=== PATIENT | female | born 1945 | race Caucasian/White ===

== ENCOUNTER → 2017-03-26 | Outpatient (CLI) | payer BC, MEDICARE ==
[2016-09-06 10:00] VITALS: BP 127/61
[~2017-03-26] MED LIST: AMLO10TA2 PO; ASPI-252 PO; ATEN1TAB4; CLOP75TA27 PO; LABE200T2 PO; LANS30CA PO; MELO-150 PO; NAPR500T3; NITR0.4T SL; REGADENOSON 0.4 MG/5 ML DISP.SYRIN. IV ONE; SIMV40TA3 PO; TRAM50TA PO
--- NOTE | 2017-03-26 12:57 | RAD ---
APPROVED REPORT Test Type: Pharmacological Stress Nurse/Tech: Lolita Motley R.N. Test Indications: CAD Cardiac History: CAD, HTN Medications: SEE EMR Medical History: Smoker Resting ECG: SR with ST abnormalities in III, AVF Resting Heart Rate: 70 bpm Resting Blood Pressure: 180/82mmHg Pretest Chest Pain: None Nurse/Tech Notes S1S2, lungs CTA, diminished in RUL and in all bases, denied chest pain, SOA and dizziness. Consent: The procedure was explained to the patient in lay terms. Informed consent was witnessed. Aditya eout was entered into [employer]. History and Stress Test performed by Lolita Motley R.N. Pharm. Details Pharmacologic stress testing was performed using 0.4mg per 5ml of regadenoson given intravenously ove r 7-10 seconds. Stress Symptoms Slightly SOA, nausea. POST EXERCISE Reason for Termination: Infusion complete Max HR: 97 bpm Max Blood Pressure: 175/76mmHg Blood Pressure response to exercise: Normal blood pressure response during stress. Heart Rate response to exercise: Normal Chest Pain: No. Arrhythmia: No. ST Change: Yes. Baseline changes in leads III, AVF INTERPRETATION Stress EKG Conclusion: Baseline EKG showed sinus rhythm with inferolateral ST/T changes. Non diagnos tic changes at peak stress. No arrhythmias. Imaging Protocol IMAGE PROTOCOL: Rest Tc-99m/stress Tc-99m 1 day Rest: Stress: Viability: Radiopharm.Tc99m [id number] Sestamibi Aroh46rEe 34.7mCi Duration 15min. 10min. Img Date 03/26/2017 03/26/2017 Inj-Img [id number]. 60min. Rest Admin Site:IV - Left AntecubitalAdministrator:ISABEL Rouse Stress Admin Site: IV - Left AntecubitalAdministrator: ISABEL Rouse STRESS DATA End Diast. Vol.84.0mlAv. Heart Rate68.0bpm End Syst. Vol.22.0mlCO Index BSA0.0L/min Myocardial Dyjl935.0gEject. Jtnsemib99.0% Stress Rates Pk. Fill Rate3.03EDV/secLVtime Pk. Fill 152.07msec Pk. Empty Rate3.66ESV/secLVtime Pk. Aodpc155.46msec 1/3 Pk. Fill1.67EDV/sec Stress Scores Regional WT0.00Summed WT13.00 Regional WM0.00Summed WM0.00 Study quality was good. Left Ventricular size was Normal at Rest and Stress. Lung uptake was Normal. Left Ventricular ejection fraction is 74%. The rest and stress images show normal perfusion, normal contraction and thickening. LV Perf. Quant 17 Seg. SSS0.00 17 Seg. SRS0.00 17 Seg. SDS0.00 Stress Defect Extent (% LAD)0.00Rest Defect Extent (% LAD)0.00Rev. Defect Extent (% LAD)0.00 Stress Defect Extent (% LCX) 0.00Rest Defect Extent (% LCX)0.00Rev. Defect Extent (% LCX)0.00 Stress Defect Extent (% RCA)0.00Rest Defect Extent (% RCA)0.00Rev. Defect Extent (% RCA)0.00 Stress Defect Extent (% RACHEL)0.00Rest Defect Extent (% RACHEL)0.00Rev. Defect Extent (% RACHEL)0.00 Conclusion 1. Regadenoson cardioisotope stress test did not show any evidence of ischemia or infarct. 2. Normal left ventricular systolic function with ejection fraction calculated at 74%. 3. Low risk for cardiac events.
== END | disposition home or self-care (01) ==
LOC: NM 08:12
PROVIDERS: ATTEND Internal Medicine Cardiovascular Disease
DX: I25.10 Atherosclerotic heart disease of native coronary artery without angina pectoris (principal); F17.200 Nicotine dependence, unspecified, uncomplicated
CPT/HCPCS: 78452; 93017; 96374; 96375; 96376; A9500; J2785

== ENCOUNTER → 2017-10-10 | Outpatient (CLI) | payer BC, MEDICARE ==
[2016-09-06 10:00] VITALS: BP 127/61
[~2017-10-10] MED LIST changes: -CLOP75TA27 PO; +CLOP75TA57 PO; -MELO-150 PO; +MELO15TA23 PO; -NAPR500T3; +NAPR500T4; -REGADENOSON 0.4 MG/5 ML DISP.SYRIN. IV ONE
--- NOTE | 2017-10-10 16:16 | RAD ---
APPROVED REPORT Patient Location: OUT-PATIENT Indications PAD VELOCITY AND DOPPLER WAVEFORM ANALYSIS RIGHT cm/secWaveformSeverity LEFT c m/secWaveformSeverity pCFA 249.0BiphasicpCFA 222.0Biphasic Prof Fem Art. 98.0BiphasicProf Fem Art. 184.0Biphasic Fem Art Prox. 227.0BiphasicFem Art Prox. 185.0Biphasic Fem Art Mid. 181.0BiphasicFem Art Mid. 146.0Biphasic Fem Art Dist. 184.0BiphasicFem Art Dist. 247.0Biphasic Pop Art(AK) 128.0BiphasicPop Art(AK) 97.0Biphasic DESK OFFICER Prox. 102.0BiphasicPTA Prox. 89.0Biphasic DESK OFFICER Dist. 87.0BiphasicPTA Dist. 75.0Biphasic Per Art Mid. 41.0BiphasicPer Art Mid. 86.0Biphasic JANE Prox. 74.0BiphasicATA Prox. 90.0Biphasic Image Findings Tovar scale images of the bilateral common femoral arteries and lower extremity arterial vessels were obtained. Of note there are bilateral complex Phillips's cyst on the right measuring 7.5 cm and on the l eft measuring 5.1 cm in greatest dimension. Spectral waveforms reveal biphasic waveforms with some mild spectral broadening suggestive of mild di ffuse atherosclerosis. There are elevated velocities in the bilateral common femoral arteries suggest rey of diffuse inflow disease of unclear degree. This may also be related to a high flow state. There is approximately a 50-60% stenosis involving the mid to distal SFA with velocity acceleration t o 257 Cm/s. Otherwise, no high-grade flow-limiting lesion is noted with three-vessel runoff bilateral ly below the knees. Critical Notification Critical Value: No <Conclusion> 1. Sixpack to moderate bilateral inflow disease based on elevated common femoral artery velocities wi th spectral broadening 2. Suspicious for approximately 50% stenosis involving the distal SFA. 3. Bilateral three-vessel runoff below the knees.
== END | disposition home or self-care (01) ==
LOC: US 14:18
PROVIDERS: ATTEND Internal Medicine Cardiovascular Disease
DX: I73.9 Peripheral vascular disease, unspecified (principal)
CPT/HCPCS: 93925

== ENCOUNTER → 2017-12-19 | Outpatient (CLI) | payer BC, MEDICARE | END | disposition home or self-care (01) | LOC: KCIC 14:07 | DX: J43.9 Emphysema, unspecified (principal); J84.10 Pulmonary fibrosis, unspecified; Z87.891 Personal history of nicotine dependence | CPT/HCPCS: 71046 ==

== ENCOUNTER → 2018-06-08 | Outpatient (CLI) | payer BC, MEDICARE | END | disposition home or self-care (01) | LOC: KCIC MRI 16:24 | DX: M43.17 Spondylolisthesis, lumbosacral region (principal); M51.37 Other intervertebral disc degeneration, lumbosacral region; I77.811 Abdominal aortic ectasia; K80.80 Other cholelithiasis without obstruction; I10 Essential (primary) hypertension; E78.5 Hyperlipidemia, unspecified; E78.00 Pure hypercholesterolemia, unspecified | CPT/HCPCS: 72148 ==

== ENCOUNTER → 2018-09-04 | Outpatient (CLI) | payer BC, MEDICARE ==
[2016-09-06 10:00] VITALS: BP 127/61
[~2018-09-04] MED LIST changes: -AMLO10TA2 PO; +AMLO10TA6 PO; -LABE200T2 PO; +LABE200T4 PO; +NAPR-514; -NAPR500T4
--- NOTE | 2018-09-04 17:25 | KCIC ---
Examination: RENAL BILAT RENAL DUPLEX CO History: Right renal mass. Chronic kidney disease. Declining renal function. History of left renal artery stenosis with stent placement. Comparison/Correlation: None Findings: Bilateral duplex renal arterial ultrasound was performed. Right kidney measures 10.9 cm x 4.9 cm x 4.5 cm. Left kidney measures 8.1 cm x 4.1 cm x 4.4 cm. No hydronephrosis. Right renal superior pole cyst measuring 2.9 cm diameter is present. Right renal echotexture is mildly echogenic. Normal left renal echotexture identified. Right renal artery Proximal: 145 cm/s with resistive index of 0.8 Middle: 354 cm/s with resistive index of 0.8 Distal: 132 cm/s with resistive index of 0.8 Left renal artery Proximal: 190 cm/s with resistive index of 0.9 Middle: 97 cm/s with resistive index of 0.8 Distal: 162 cm/s with resistive index of 0.8 Proximal aorta: 84.7 cm/s Ectasia of the abdominal aorta with diameter of 2.7 cm noted. Diffuse atheromatous involvement of the abdominal aorta noted. Right renal artery velocity to aorta velocity ratio is 4.2. Left renal artery velocity to aorta velocity ratio is 2.3. Urinary bladder prevoid volume is 145 cc. No postvoid urinary bladder residual volume identified. Impression: Left proximal main renal artery resistive index of 0.9 of concern for mild to moderate stenosis. Mild right mid main renal artery stenosis suspected. Electronically signed by: Dwayne Mcintosh MD (09/04/2018 5:21 PM) [id number]
== END | disposition home or self-care (01) ==
LOC: KCIC US 09:44
PROVIDERS: ATTEND Family Medicine
DX: I12.9 Hypertensive chronic kidney disease with stage 1 through stage 4 chronic kidney disease, or unspecified chronic kidney disease (principal); N18.4 Chronic kidney disease, stage 4 (severe); N28.89 Other specified disorders of kidney and ureter; I77.811 Abdominal aortic ectasia; I70.1 Atherosclerosis of renal artery; Z87.448 Personal history of other diseases of urinary system
CPT/HCPCS: 76770

== ENCOUNTER → 2018-11-04 | Outpatient (CLI) | payer BC, MEDICARE ==
[2016-09-06 10:00] VITALS: BP 127/61
--- NOTE | 2018-11-04 12:03 | CARD ---
MR#: [id number] Date of Study: 11/04/2018 Ordering Physician: BIRD CHAMORRO, Referring Physician: BIRD CHAMORRO Tech: Yue Castellon RDCS APPROVED REPORT EXAM: Two-dimensional and M-mode echocardiogram with Doppler and color Doppler. Other Information Quality : Good INDICATION Cardiac Disease: CAD RISK FACTORS Hypertension Smoking 2D DIMENSIONS RVDd2.8 (2.9-3.5cm)Left Atrium(2D)3.4 (1.6-4.0cm) IVSd1.0 (0.7-1.1cm)Aortic Root(2D)2.5 (2.0-3.7cm) LVDd4.3 (3.9-5.9cm)LVOT Diameter1.9 (1.8-2.4cm) PWd1.0 (0.7-1.1cm)LVDs3.2 (2.5-4.0cm) FS (%) 26.3 %SV44.2 ml LVEF(%)55.0 (>50%) Aortic Valve AoV Peak Tim.134.4cm/sAoV VTI34.8cm AO Peak GR.7.2mmHgLVOT Peak Tim.102.7cm/s LVOT VTI 27.56cmAO Mean GR.4mmHg SHERIE (VMAX)2.78io2FDM (VTI)2.34cm2 Mitral Valve MV E Qrwhyszq46.7cm/sMV DECEL SKLT864lg MV A Bujwracc119.8cm/sMV BSM38fz E/A Ratio0.7MVA (PHT)3.31cm2 TDI E/Lateral E'14.7E/Medial E'17.7 Tricuspid Valve TR P. Kdzrmbft279nm/sRAP GBKHKRED6yrAk TR Peak Gr.98rnHlATUY41mtTa Pulmonary Vein S1 Kdezvhdz39.0cm/sD2 Yweffoqc79.1cm/s LEFT VENTRICLE The left ventricle is normal size. There is normal left ventricular wall thickness. The left ventricu lar systolic function is normal. The Ejection Fraction is 55-60%. There is normal LV segmental wall m otion. Transmitral Doppler flow pattern is Grade I-abnormal relaxation pattern. RIGHT VENTRICLE The right ventricle is normal size. The right ventricular systolic function is normal. ATRIA The left atrium size is normal. The right atrium size is normal. The interatrial septum is intact wit h no evidence for an atrial septal defect or patent foramen ovale as noted on 2-D or Doppler imaging. AORTIC VALVE The aortic valve is calcified but opens well. Doppler and Color Flow revealed trace aortic regurgitat ion. There is no significant aortic valvular stenosis. MITRAL VALVE The mitral valve is calcified but opens well. Mitral annular calcification is mild. There is no evide nce of mitral valve prolapse. There is no mitral valve stenosis. Doppler and Color-flow revealed trac e to mild mitral regurgitation. TRICUSPID VALVE The tricuspid valve is normal in structure and function. Doppler and Color Flow revealed mild tricusp id regurgitation. There is moderate pulmonary hypertension. The PA pressure was estimated at 53 mmHg. There is no tricuspid valve stenosis. PULMONIC VALVE The pulmonic valve is not well visualized. Doppler and Color Flow revealed no pulmonic valvular regur gitation. There is no pulmonic valvular stenosis. GREAT VESSELS The aortic root is normal in size. The ascending aorta is normal in size. The IVC is normal in size a nd collapses >50% with inspiration. PERICARDIAL EFFUSION There is no evidence of significant pericardial effusion. Critical Notification Critical Value: No <Conclusion> The left ventricular systolic function is normal. The Ejection Fraction is 55-60%. There is normal LV segmental wall motion. Transmitral Doppler flow pattern is Grade I-abnormal relaxation pattern. Trace to mild mitral regurgitation. Mild tricuspid regurgitation. There is moderate pulmonary hypertension. The PA pressure was estimated at 53 mmHg. There is no evidence of significant pericardial effusion. Signed by : Bird Chamorro, Electronically Approved : 11/04/2018 12:01:55
== END | disposition home or self-care (01) ==
LOC: ECHO 11:03
PROVIDERS: ATTEND Internal Medicine Cardiovascular Disease
DX: I25.10 Atherosclerotic heart disease of native coronary artery without angina pectoris (principal); I36.1 Nonrheumatic tricuspid (valve) insufficiency; I27.20 Pulmonary hypertension, unspecified; I10 Essential (primary) hypertension; F17.200 Nicotine dependence, unspecified, uncomplicated
CPT/HCPCS: 93306

== ENCOUNTER → 2018-11-23 | Outpatient (CLI) | payer BC, MEDICARE ==
[2016-09-06 10:00] VITALS: BP 127/61
--- NOTE | 2018-11-23 15:23 | RAD ---
MR#: [id number] Date of Study: 11/23/2018 Ordering Physician: BIRD CHAMORRO, Referring Physician: BIRD CHAMORRO, Tech: Dalton Agosto MBA, RDMS, RVT, RDCS, RTR APPROVED REPORT Patient Location: OUT-PATIENT Indications PAD VELOCITY AND DOPPLER WAVEFORM ANALYSIS RIGHT cm/secWaveformSeverity LEFT cm/secWaveform Severity dCFA 246.0BiphasicdCFA 150.0Biphasic Prof Fem Art. 89.0BiphasicProf Fem Art. 66.0Biphasic Fem Art Prox. 122.0TriphasicFem Art Prox. 167.0Biphasic Fem Art Mid. 218.0TriphasicFem Art Mid. 128.0Biphasic Fem Art Dist. 172.0TriphasicFem Art Dist. 230.0Triphasic Pop Art([place]ossa) 111.0TriphasicPop Art(AK) 96.0Biphasic [employer] Prox. 102.0BiphasicPTA Prox. 87.0Biphasic [employer] Dist. 83.0BiphasicPTA Dist. 68.0Biphasic Per Art Mid. 50.0BiphasicPer Art Mid. 70.0Biphasic JANE Prox. 80.0BiphasicATA Prox. 73.0Biphasic DPA 113BiphasicDPA 77Biphasic Image Findings Grayscale images of the bilateral lower extremity arterial vessels reveal mild diffuse athero-'s gas or water meter installer patricia plaque. Spectral waveforms and color Doppler studies reveal probable mild to moderate right common femoral ar saniya stenosis in the order of approximately 50%. There is three-vessel runoff on the right side. The left mid to distal SFA velocities are increased again suggestive of probable 50% stenosis at most . There is three-vessel runoff below the knee with normal velocities. Bilateral complex Phillips's cyst are noted with the right side measuring approximately 7.4 cm in the le ft side measuring 6.2 cm. Critical Notification Critical Value: No <Conclusion> 1. Probable moderate right common femoral and left superficial femoral artery disease at most 50%. No focal high-grade stenosis is identified with three-vessel runoff below the knee bilaterally 2. Complex bilateral Phillips cysts noted as described above. Signed by : Obie Ventura, Electronically Approved : 11/23/2018 15:21:57
== END | disposition home or self-care (01) ==
LOC: US 10:35
PROVIDERS: ATTEND Internal Medicine Cardiovascular Disease
DX: M71.22 Synovial cyst of popliteal space [Baker], left knee (principal); M71.21 Synovial cyst of popliteal space [Baker], right knee; I70.293 Other atherosclerosis of native arteries of extremities, bilateral legs
CPT/HCPCS: 93925

== ENCOUNTER → 2019-07-15 | Outpatient (CLI) | payer BC, MEDICARE ==
[2016-09-06 10:00] VITALS: BP 127/61
[~2019-07-15] MED LIST changes: -AMLO10TA6 PO; +AMLO10TA8 PO
--- NOTE | 2019-07-16 09:46 | RAD ---
DATE: 07/15/2019 10:41 AM EXAM: MAMMO AALIYAH SCREENING BILATERAL HISTORY: routine screening evaluation. COMPARISON: Baseline examination Bilateral CC and MLO views of the breasts were performed. Bilateral breast tomosynthesis was performed in CC and MLO projections. This study was interpreted with the benefit of Computerized Aided Detection (CAD). FINDINGS: Breast Density: SCATTERED The breast parenchyma shows scattered fibroglandular densities. Breast parenchyma level B Benign calcifications are present. The parenchymal pattern appears stable. No suspicious masses, microcalcifications or architectural distortion is present to suggest malignancy in either breast. The visualized axillae are unremarkable. IMPRESSION: No mammographic evidence of malignancy. BI-RADS CATEGORY: 2 BENIGN FINDING(S) RECOMMENDED FOLLOW-UP: 12M 12 MONTH FOLLOW-UP Annual screening mammography is recommended, unless clinically indicated sooner based on symptoms or change in physical exam. PQRS compliance statement: Patient information was entered into a reminder system with a target due date for the next mammogram. Mammography is a sensitive method for finding small breast cancers, but it does not detect them all and is not a substitute for careful clinical examination. A negative mammogram does not negate a clinically suspicious finding and should not result in delay in biopsying a clinically suspicious abnormality. "Our facility is accredited by the [employer] Mammography Program."
== END | disposition home or self-care (01) ==
LOC: MAMMO 10:34
PROVIDERS: ATTEND Family Medicine
DX: Z12.31 Encounter for screening mammogram for malignant neoplasm of breast (principal); N64.89 Other specified disorders of breast
CPT/HCPCS: 77063; 77067

== ENCOUNTER → 2019-08-31 | Outpatient (CLI) | payer BC, MEDICARE ==
[2016-09-06 10:00] VITALS: BP 127/61
[~2019-08-31] MED LIST changes: -NITR0.4T SL; +NITR0.4T24 SL
--- NOTE | 2019-08-31 13:56 | RAD ---
EXAM: Renal sonogram. HISTORY: Chronic renal disease. Renal cyst. TECHNIQUE: Sonographic imaging of the kidneys and bladder was performed. COMPARISON: 09/04/2018. FINDINGS: The right kidney measures 9.0 cm [id number]. Left kidney measures 8.3 cm [id number]. There are small simple appearing renal cysts, the largest of which on the right measures 3.3 cm enlarged which on the left measures 1.2 cm. No solid renal lesion is seen. There is no hydronephrosis. The renal parenchyma is mildly echogenic. The bladder is unremarkable. IMPRESSION: 1. Small simple appearing renal cysts. 2. Mild left renal atrophy. 3. Mildly echogenic renal parenchyma, a finding which can be seen with medical renal disease. Electronically signed by: Jhoana Jennings MD (08/31/2019 1:53 PM) [id number]
== END | disposition home or self-care (01) ==
LOC: US 08:25
PROVIDERS: ATTEND Internal Medicine Nephrology
DX: N18.4 Chronic kidney disease, stage 4 (severe) (principal); N28.1 Cyst of kidney, acquired; N26.1 Atrophy of kidney (terminal)
CPT/HCPCS: 76770

== ENCOUNTER 2019-09-21 10:12 | Emergency (ER) | payer BC, MEDICARE ==
[~2019-09-21] VITALS: Ht 162.6 cm; Wt 61.8 kg
--- NOTE | 2019-09-21 10:57 | PHYS DOC ---
Past Medical History Past Medical History: High Cholesterol, Hypertension, Renal Failure Additional Past Medical Histor: stomach ulcer Past Surgical History: Hysterectomy Additional Past Surgical Histo: kidney shunts, knee surgery, hip surgery Additional Information: 12/02-02/01 ppd Alcohol Use: Occasionally Drug Use: None Adult General Chief Complaint Chief Complaint: ABNORMAL LABS HPI HPI 74-year-old female presents to the emergency department with complaints of abnormal laboratory studies. Patient probably had blood drawn on Friday she's call today for abnormal results, critical as well as she describes. Unknown exactly the critical result. Patient has a history of iron infusion in the past. She sees nephrology. Patient denies any nausea, vomiting, diarrhea, chest pain, shortness of breath, abdominal pain. She does describe just not feeling well. Review of Systems Review of Systems Constitutional: not feeling well Eyes: Denies change in visual acuity, redness, or eye pain [] Respiratory: Denies cough or shortness of breath [] Cardiovascular: No additional information not addressed in HPI [] GI: Denies abdominal pain, nausea, vomiting, bloody stools or diarrhea [] Integument: Denies rash or skin lesions [] Neurologic: Denies headache, focal weakness or sensory changes [] All other systems were reviewed and found to be within normal limits, except as documented in this note. Current Medications Current Medications Current Medications Medications (Trade) Dose Ordered Sig/Senait Start Time Stop Time Status Last Admin Dose Admin Calcium Gluconate (Calcium Gluconate) 1,000 mg 1X ONCE 09/21/19 13:15 09/21/19 13:16 DC 09/21/19 13:36 1,000 MG Allergies Allergies Allergies Coded Allergies Type Severity Reaction Last Updated Verified acetaminophen Adverse Reaction Intermediate GI Upset 09/08/19 Yes codeine Adverse Reaction Intermediate GI Upset 09/08/19 Yes hydrocodone Adverse Reaction Intermediate GI Upset 09/08/19 Yes Physical Exam Physical Exam Constitutional: Well developed, well nourished, no acute distress, non-toxic appearance. [] HENT: Normocephalic, atraumatic, bilateral external ears normal, oropharynx moist, no oral exudates, nose normal. [] Eyes: PERRLA, EOMI, conjunctiva normal, no discharge. [] Cardiovascular:Heart rate regular rhythm, no murmur [] Lungs & Thorax: Bilateral breath sounds clear to auscultation [] Abdomen: Bowel sounds normal, soft, no tenderness, no masses, no pulsatile masses. [] Skin: Warm, dry, no erythema, no rash. [] Back: No tenderness, no CVA tenderness. [] Extremities: No tenderness, no cyanosis, no clubbing, ROM intact, no edema. [] Neurologic: Alert and oriented X 3, no focal deficits noted. [] Psychologic: Affect normal, judgement normal, mood normal. [] Current Patient Data Vital Signs Vital Signs Date Time Temp Pulse Resp B/P (MAP) Pulse Ox O2 Delivery O2 Flow Rate FiO2 09/21/19 11:44 81 16 138/73 (94) 97 Room Air 09/21/19 10:46 98.3 98.3 Lab Values Laboratory Tests Test 09/21/19 11:00 09/21/19 11:20 White Blood Count 7.4 x10^3/uL (4.0-11.0) Red Blood Count 3.91 x10^6/uL (3.50-5.40) Hemoglobin 11.7 g/dL (12.0-15.5) L Hematocrit 34.1 % (36.0-47.0) L Mean Corpuscular Volume 87 fL (79-100) Mean Corpuscular Hemoglobin 30 pg (25-35) Mean Corpuscular Hemoglobin Concent 34 g/dL (31-37) Red Cell Distribution Width 14.8 % (11.5-14.5) H Platelet Count 375 x10^3/uL (140-400) Neutrophils (%) (Auto) 77 % (31-73) H Lymphocytes (%) (Auto) 12 % (24-48) L Monocytes (%) (Auto) 9 % (0-9) Eosinophils (%) (Auto) 2 % (0-3) Basophils (%) (Auto) 1 % (0-3) Neutrophils # (Auto) 5.7 x10^3/uL (1.8-7.7) Lymphocytes # (Auto) 0.9 x10^3/uL (1.0-4.8) L Monocytes # (Auto) 0.7 x10^3/uL (0.0-1.1) Eosinophils # (Auto) 0.1 x10^3/uL (0.0-0.7) Basophils # (Auto) 0.1 x10^3/uL (0.0-0.2) Sodium Level 143 mmol/L (136-145) Potassium Level 3.5 mmol/L (3.5-5.1) Chloride Level 107 mmol/L (98-107) Carbon Dioxide Level 22 mmol/L (21-32) Anion Gap 14 (6-14) Blood Urea Nitrogen 35 mg/dL (7-20) H Creatinine 2.9 mg/dL (0.6-1.0) H Estimated GFR (Cockcroft-Gault) 15.8 BUN/Creatinine Ratio 12 (6-20) Glucose Level 114 mg/dL (70-99) H Calcium Level 6.7 mg/dL (8.5-10.1) L Total Bilirubin 0.3 mg/dL (0.2-1.0) Aspartate Amino Transferase (AST) 34 U/L (15-37) Alanine Aminotransferase (ALT) 24 U/L (14-59) Alkaline Phosphatase 103 U/L (46-116) Total Protein 7.1 g/dL (6.4-8.2) Albumin 3.4 g/dL (3.4-5.0) Albumin/Globulin Ratio 0.9 (1.0-1.7) L Urine Collection Type Void Urine Color Yellow Urine Clarity Clear Urine pH 5.5 Urine Specific [place] 1.020 Urine Protein >=300 mg/dL (NEG-TRACE) Urine Glucose (UA) 100 mg/dL (NEG) Urine Ketones (Stick) Negative mg/dL (NEG) Urine Blood Negative (NEG) Urine Nitrite Negative (NEG) Urine Bilirubin Negative (NEG) Urine Urobilinogen Dipstick 0.2 mg/dL (0.2 mg/dL) Urine Leukocyte Esterase Negative (NEG) Urine RBC Occ /HPF (0-2) Urine WBC 1-4 /HPF (0-4) Urine Squamous Epithelial Cells Few /LPF Urine Bacteria Moderate /HPF (0-FEW) Laboratory Tests 09/21/19 11:00 Laboratory Tests 09/21/19 11:00 EKG EKG [] Radiology/Procedures Radiology/Procedures [] Course & Med Decision Making Course & Med Decision Making 74-year-old female presents to the emergency department with complaints of abnormal laboratory studies. Patient probably had blood drawn on Friday she's call today for abnormal results, critical as well as she describes. Unknown exactly the critical result. Patient has a history of iron infusion in the past. She sees nephrology. Patient denies any nausea, vomiting, diarrhea, chest pain, shortness of breath, abdominal pain. She does describe just not feeling well.Pertinent Labs and Imaging studies reviewed. (See chart for details) [] Labs reviewed Calcium low at 6.7 - calcium gluconate 1000mg IV x [address] AMARO - renal ---- Patient needs referral for further endocrine workup as outpatient Patient does not want to stay in the hospital Discussed dc plan and follow up as outpatient Anny Disclaimer Dragon Disclaimer This electronic medical record was generated, in whole or in part, using a voice recognition dictation system. Departure Departure Impression: Primary Impression: Hypocalcemia Disposition: 01 HOME, SELF-CARE Condition: STABLE Referrals: AMALIA VERGARA MD (PCP) Patient Instructions: Hypocalcemia, Adult Additional Instructions: Recommend follow up with PCP 3 - 5 days Return to the ER with worsening symptoms, intractable pain, fever, altered mental status Tylenol/Motrin as needed for pain Discussed with Nephrology - referral for Endocrine follow up as an outpatient, will need referral from PCP MINA CANTU MD Sep 21, 2019 10:57
[2019-09-21 11:11] LABS: BASO # 0.1 x10^3/uL (0.0-0.2); BASO % 1 % (0-3); EOS # 0.1 x10^3/uL (0.0-0.7); EOS % 2 % (0-3); HEMATOCRIT 34.1 % (36.0-47.0); HEMOGLOBIN 11.7 g/dL (12.0-15.5); LYMPH # 0.9 x10^3/uL (1.0-4.8); LYMPH % 12 % (24-48); MEAN CORPUSCULAR HEMOGLOBIN 30 pg (25-35); MEAN CORPUSCULAR HGB CONC 34 g/dL (31-37); MEAN CORPUSCULAR VOLUME 87 fL (79-100); MONO # 0.7 x10^3/uL (0.0-1.1); MONO % 9 % (0-9); NEUT # 5.7 x10^3/uL (1.8-7.7); NEUT % 77 % (31-73); PLATELET COUNT 375 x10^3/uL (140-400); RED BLOOD COUNT 3.91 x10^6/uL (3.50-5.40); RED CELL DISTRIBUTION WIDTH 14.8 % (11.5-14.5); WHITE BLOOD COUNT 7.4 x10^3/uL (4.0-11.0)
[2019-09-21 11:37] LABS: CALCIUM 6.7 mg/dL (8.5-10.1); CREATININE 2.9 mg/dL (0.6-1.0); GFR 15.8; POTASSIUM 3.5 mmol/L (3.5-5.1)
[2019-09-21 11:39] LABS: BILIRUBIN,URINE NEGATIVE (NEG); CLARITY,URINE CLEAR; COLOR,URINE YELLOW; NITRITE,URINE NEGATIVE (NEG); PH,URINE 5.5; PROTEIN,URINE >=300 mg/dL (NEG-TRACE); UROBILINOGEN,URINE 0.2 mg/dL (0.2 mg/dL)
[2019-09-21 11:48] LABS: ALBUMIN 3.4 g/dL (3.4-5.0); ALBUMIN/GLOBULIN RATIO 0.9 (1.0-1.7); TOTAL BILIRUBIN 0.3 mg/dL (0.2-1.0); TOTAL PROTEIN 7.1 g/dL (6.4-8.2)
[2019-09-21 11:57] LABS: BACTERIA,URINE MODERATE /HPF (0-FEW); RBC,URINE OCC /HPF (0-2); SQUAMOUS EPITHELIAL CELL,UR FEW /LPF
[2019-09-21] MEDS ORDERED: CALCIUM GLUCONATE 1,000 MG/10 ML VIAL. IVP ONE (13:15)
[2019-09-21 13:44] VITALS: BP 160/71
== END 2019-09-21 14:09 | disposition home or self-care (01) ==
LOC: ER 10:12
DX: E83.51 Hypocalcemia (principal); E78.00 Pure hypercholesterolemia, unspecified; I12.9 Hypertensive chronic kidney disease with stage 1 through stage 4 chronic kidney disease, or unspecified chronic kidney disease; N18.9 Chronic kidney disease, unspecified; F17.200 Nicotine dependence, unspecified, uncomplicated; Z88.5 Allergy status to narcotic agent; Z88.6 Allergy status to analgesic agent
CPT/HCPCS: 36415; 80053; 81001; 85025; 87086; 96374; 99284; J0610

== ENCOUNTER → 2019-09-24 | Outpatient (CLI) | payer BC, MEDICARE ==
[2019-09-21 13:44] VITALS: BP 160/71
[2019-09-24 13:51] LABS: ALBUMIN 3.5 g/dL (3.4-5.0); CALCIUM 7.1 mg/dL (8.5-10.1); CREATININE 2.9 mg/dL (0.6-1.0); GFR 15.8; PHOSPHORUS 2.4 mg/dL (2.6-4.7); POTASSIUM 3.7 mmol/L (3.5-5.1)
== END | disposition home or self-care (01) ==
LOC: LAB 13:23
PROVIDERS: ATTEND Internal Medicine Nephrology
DX: N18.4 Chronic kidney disease, stage 4 (severe) (principal)
CPT/HCPCS: 36415; 80069

== ENCOUNTER → 2020-07-28 | Outpatient (CLI) | payer BC, MEDICARE ==
[~2020-07-28] MED LIST changes: +ALBU2.5V14 NEB; +BUDE0.5A3 NEB; +HYDR-2868 PO; +SIMV40TA18 PO; -SIMV40TA3 PO; +VENTOLIN HFA18 GM INH
--- NOTE | 2020-07-28 16:28 | RAD ---
MR#: [id number] Date of Study: 07/28/2020 Ordering Physician: BIRD CHAMORRO, Referring Physician: BIRD CHAMORRO, Tech: Molly Guzmán, BILL, RVT, RTR APPROVED REPORT Patient Location: OUT-PATIENT Indications PAD Bilateral Leg weakness and numbness VELOCITY AND DOPPLER WAVEFORM ANALYSIS RIGHT cm/secWaveformSeverity LEFT cm/secWaveform Severity pCFA pCFA 217.2 dCFA 198.0dCFA 155.5 Prof Fem Art. 379.4Prof Fem Art. 203.9 Fem Art Prox. 262.8Fem Art Prox. 215.5 Fem Art Mid. 226.4Fem Art Mid. 317.0 Fem Art Dist. 153.0Fem Art Dist. 156.6 Pop Art(AK) 147.8Pop Art(AK) 157.9 MOLD MAKER PLASTIC MOLDS Prox. 59.9PTA Prox. 50.1 MOLD MAKER PLASTIC MOLDS Dist. 99.1PTA Dist. 67.9 Per Art Prox. 108.2Per Art Prox. 84.8 JANE Prox. 69.0ATA Prox. 108.0 DPA 99DPA 76 Findings Grayscale images of the bilateral lower extremity arterial vessels demonstrate mild to moderate diffu se plaque. On the right side there is likely a greater than 50% stenosis involving the profunda femoris. Probab le moderate diffuse disease involving the SFA. There is three-vessel runoff below the knee with biph asic waveforms. On the left there is again likely moderate disease involving the mid SFA. The velocities are moderat trudy increased compared to a lower extremity Doppler study performed in 2018. There is again three-ve ssel runoff with biphasic waveforms on the left side. Bilateral Phillips cysts are noted measuring 7.2 x 4.5 x 1.4 cm on the right and 5.0 x 3.0 x 1.6 cm on t he left. Critical Notification Critical Value: No <Conclusion> 1. Moderate bilateral superficial femoral disease, slightly worsened compared to 2018. Although dean ocities are elevated to suggest a greater than 50% stenosis, there are mostly biphasic waveforms dist al to the elevated SFA velocities suggesting that this may be related to calcification. A correspond ing ankle-brachial index might be helpful for delineation of any significant arterial insufficiency. Clinical correlation recommended Signed by : Obie Ventura, Electronically Approved : 07/28/2020 16:27:48
--- NOTE | 2020-07-30 17:00 | CARD ---
MR#: [id number] Date of Study: 07/28/2020 Ordering Physician: BIRD CHAMORRO, Referring Physician: BIRD CHAMORRO, Tech: Molly Nugent APPROVED REPORT EXAM: Two-dimensional and M-mode echocardiogram with Doppler and color Doppler. Other Information Quality : AverageHR: 66bpm INDICATION Palpitations RISK FACTORS Hypertension Smoking 2D DIMENSIONS Left Atrium(2D)3.2 (1.6-4.0cm)IVSd1.4 (0.7-1.1cm) Aortic Root(2D)2.7 (2.0-3.7cm)LVDd5.2 (3.9-5.9cm) LVOT Diameter1.9 (1.8-2.4cm)PWd1.4 (0.7-1.1cm) LVDs3.6 (2.5-4.0cm)FS (%) 31.0 % SV76.1 ml Aortic Valve AoV Peak Tim.142.0cm/sAoV VTI37.5cm AO Peak GR.8.1mmHgLVOT Peak Tim.123.3cm/s AO Mean GR.5mmHgAVA (VMAX)2.45cm2 Mitral Valve MV E Zxotrrdi490.7cm/sMV E Peak Gr.6mmHg MV DECEL LSHP759nnLA A Bbzlcvzm697.1cm/s MV E Mean Gr.4mmHgE/A Ratio1.1 Pulmonary Valve PV Peak Jhamtgod30.8cm/s Tricuspid Valve TR P. Tfmrlaft801gx/sRAP QKQEVXZZ8cpSw TR Peak Gr.47liPyOAUS83rxAq LEFT VENTRICLE The left ventricle is normal size. There is mild concentric left ventricular hypertrophy. The left ve ntricular systolic function is normal and the ejection fraction is within normal range. The ejection fraction is 50-55%. There is normal LV segmental wall motion. Transmitral Doppler flow pattern is Gra de II-pseudonormal filling dynamics. RIGHT VENTRICLE The right ventricle is mildly dilated. There is normal right ventricular wall thickness. The right ve ntricular systolic function is normal. ATRIA The left atrium is mildly dilated. The right atrium is mildly dilated. The interatrial septum is inta ct with no evidence for an atrial septal defect or patent foramen ovale as noted on 2-D or Doppler im aging. AORTIC VALVE The aortic valve is calcified but opens well. Doppler and Color Flow revealed no significant aortic r egurgitation. There is no significant aortic valvular stenosis. Calculated aortic valve area is 2.6 c m2 with maximum pressure gradient of 8 mmHg and mean pressure gradient of 5 mmHg. MITRAL VALVE The mitral valve is normal in structure and function. There is no evidence of mitral valve prolapse. There is no mitral valve stenosis with an estimated PAP of 3.63 mmHg. Doppler and Color-flow revealed trace to mild mitral regurgitation. TRICUSPID VALVE The tricuspid valve is normal in structure and function. Doppler and Color Flow revealed mild tricusp id regurgitation with an estimated PAP of 60 mmHg. There is no tricuspid valve stenosis. PULMONIC VALVE The pulmonic valve is not well visualized. Doppler and Color Flow revealed trace pulmonic valvular re gurgitation. GREAT VESSELS The aortic root is normal in size. The IVC is normal in size and collapses >50% with inspiration. PERICARDIAL EFFUSION There is no evidence of significant pericardial effusion. Critical Notification Critical Value: No <Conclusion> The left ventricle is normal size. The left ventricular systolic function is normal and the ejection fraction is within normal range. The ejection fraction is 50-55%. There is mild concentric left ventricular hypertrophy. The right ventricle is mildly dilated. Doppler and Color Flow revealed no significant aortic regurgitation. There is no significant aortic valvular stenosis. Calculated aortic valve area is 2.6 cm2 with maximum pressure gradient of 8 mmHg and mean pressure gr adient of 5 mmHg. Doppler and Color-flow revealed trace to mild mitral regurgitation. Doppler and Color Flow revealed mild tricuspid regurgitation with an estimated PAP of 60 mmHg. Signed by : Jose Potts MD Electronically Approved : 07/30/2020 16:59:40
== END | disposition home or self-care (01) ==
LOC: US 11:12
PROVIDERS: ATTEND Internal Medicine Cardiovascular Disease
DX: I08.3 Combined rheumatic disorders of mitral, aortic and tricuspid valves (principal); M71.22 Synovial cyst of popliteal space [Baker], left knee; M71.21 Synovial cyst of popliteal space [Baker], right knee; I73.9 Peripheral vascular disease, unspecified; Z20.828 Contact with and (suspected) exposure to other viral communicable diseases
CPT/HCPCS: 93306; 93925; U0003

== ENCOUNTER 2020-07-31 07:09 | Observation (INO) | payer BC, MEDICARE ==
[~2020-07-31] VITALS: Ht 165.1 cm; Wt 62.8 kg
[2020-07-31] VITALS (21 sets, daily range): BP systolic 127–183; BP diastolic 47–80
[~2020-07-31 07:09] MED LIST changes: -ALBU2.5V14 NEB; -BUDE0.5A3 NEB; -HYDR-2868 PO; -VENTOLIN HFA18 GM INH
[2020-07-31] MEDS ORDERED: BACITRACIN 50,000 UNIT in IV NORMAL SALINE 250ML 250 ML IRR ONE (07:15)
--- NOTE | 2020-07-31 07:39 | EKG ---
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
[2020-07-31 08:02] LABS: HEMOGLOBIN 10.9 g/dL (12.0-15.5); RED BLOOD COUNT 3.6 x10^6/uL (3.50-5.40); RED CELL DISTRIBUTION WIDTH 14.2 % (11.5-14.5); WHITE BLOOD COUNT 6.4 x10^3/uL (4.0-11.0)
[2020-07-31] MEDS ORDERED: ALBU2.5V14 NEB (08:04)
[2020-07-31] MEDS ORDERED: VENTOLIN HFA18 GM INH (08:04)
[2020-07-31] MEDS ORDERED: BUDE0.5A3 NEB (08:04)
[2020-07-31] MEDS ORDERED: HYDR-2868 PO (08:04)
[2020-07-31 08:12] LABS: PROTHROMBIN TIME PATIENT 12.5 SEC (11.7-14.0)
[2020-07-31] MEDS ORDERED: fentaNYL PF VIAL 100 MCG/2 ML VIAL ONE ×2 (08:22→09:12)
[2020-07-31] MEDS ORDERED: MIDAZOLAM HCL/PF 2 MG/2 ML VIAL. ONE ×2 (08:22→09:12)
[2020-07-31] MEDS ORDERED: ceFAZolin SODIUM IV Push 1 GM VIAL. IVP ONE ×3 (08:23→10:00)
[2020-07-31] MEDS ORDERED: LIDOCAINE 2%/EPI 1:100,000 20 ML VIAL. ONE (08:32)
[2020-07-31 08:44] LABS: CALCIUM 7.9 mg/dL (8.5-10.1); CREATININE 3.7 mg/dL (0.6-1.0); GFR 11.9
--- NOTE | 2020-07-31 09:00 | PDOC ---
MODERATE SEDATION ASSESSMENT RISKS/ALTERNATIVES Risks/Alternatives Risks and alternatives of this type of sedation and procedure discussed with: RISK/ALTERNATIVES: Patient H & P ON CHART H & P H & P on chart and reviewed for co-morbid conditions and appropriate labs. H&P ON CHART: Yes STATUS PREG STATUS ASSESSED: N/A MEDS/ALLERGIES REVIEWED Meds/Allergies Reviewed Medications and Allergies including time and route of recently administered narcotics and sedatives. MEDS/ALLERGIES REVIEWED: Yes ASA RATING ASA RATING: II AIRWAY ASSESSMENT Airway Assessment Airway patency, oral function limitations, presence of caps, crowns, dentures, partials, and ability to extend neck assessed. AIRWAY ASSESSMENT: Yes MALLAMPATI SCORE MALLAMPATI SCORE: II PRE-SEDATION ASSESSMENT PRE-SEDATION ASSESSMENT: Yes BIRD CHAMORRO MD Jul 31, 2020 09:00
[2020-07-31] MEDS ORDERED: fentaNYL PF VIAL 100 MCG/2 ML VIAL IV ONE ×2 (09:30)
[2020-07-31] MEDS ORDERED: LIDOCAINE 2%/EPI 1:100,000 20 ML VIAL. IJ ONE (09:30)
[2020-07-31] MEDS ORDERED: MIDAZOLAM HCL/PF 2 MG/2 ML VIAL. IV ONE ×2 (09:30)
[2020-07-31] MEDS ORDERED: IV NORMAL SALINE 1000ML BAG 1,000 ML IV ONE (09:45)
--- NOTE | 2020-07-31 09:52 | CARD ---
MR#: [id number] Date of Study: 07/31/2020 Ordering Physician: BIRD LONGO, Referring Physician: BIRD LONGO, Tech: APPROVED REPORT HISTORY Successful implantation of Biotronik dual-chamber permanent pacemaker MODERATE SEDATION TIME: 49 MINUTES FLUORO TIME: 2.6 MIN DOSE: 5 GYCM2 INDICATIONS Sick sinus syndrome with significant pauses PROCEDURE After explaining the risks, benefits, and alternative options, informed consent was obtained from the patient. The patient was brought to the cardiac catheterization lab and the left chest and shoulder were prepp ed and draped in a sterile manner. 30 cc of 2% lidocaine was infiltrated into the skin and subcutaneous tissues for local anesthesia. A n incision was made over the left infraclavicular fossa and using blunt dissection and cautery, a poc ket was created. Venous access was obtained in the left subclavian vein and 8 and 6 Welsh sheaths w ere inserted. A Biotronik bipolar active fixation right ventricular lead model Solia, serial #[id number] was advanc ed under fluoroscopic guidance and the tip was positioned in the right ventricular apex. Subsequentl y, a Biotronik bipolar active fixation right atrial lead model Solia, serial #[id number] was positioned in the right atrial appendage under fluoroscopy guidance. The leads were secured into place and wer e attached to a Biotronik dual-chamber permanent pacemaker generator model Edora 8 DR-T, serial #[id number]. This was placed in the pocket that was subsequently closed in 3 layers. Hemostasis was secure d. The right ventricular lead showed a sensing amplitude of 9.0 mV, impedance of 690 ohms and a threshol d of 0.7 V. The right atrial lead showed a sensing amplitude of 3.1 mV, impedance of 490 ohms and a threshold of 0.9 V. Patient tolerated the procedure well. There were no immediate complications. CONCLUSION Successful implantation of Biotronik dual-chamber permanent pacemaker for sick sinus syndrome with si gnificant pauses. Signed by : Bird Longo, Electronically Approved : 07/31/2020 09:52:34
--- NOTE | 2020-07-31 10:38 | RAD ---
PORTABLE CHEST 1V 07/31/2020 9:40 AM INDICATION: Pacemaker implantation COMPARISON: None available TECHNIQUE: Portable frontal view of the chest is provided. FINDINGS: The cardiomediastinal silhouette is borderline enlarged . Left chest wall cardiac device is identified with leads projecting over the right atrium and right ventricle. Right apical pleural-parenchymal scarring is noted. Mild interstitial prominence. There are no significant pleural effusions. There is no pulmonary vascular congestion. No pneumothorax. No suspicious osseous abnormality. IMPRESSION: Left chest wall cardiac device is identified with leads are noted right atrium and right ventricle. No pneumothorax. Borderline prominent cardiac mediastinal silhouette. Findings could reflect underlying cardiac myopathy. Electronically signed by: Ana Khan MD (07/31/2020 10:35 AM) [id number]
--- NOTE | 2020-07-31 11:27 | NUR ---
dressing on left back site is clean and dry. pt tolerating po well. VSS. ambulated to BR w/o problem. d/c instructions reviewed. out to vehicle per w/c. . her daughter to drive her home.
--- NOTE | 2020-07-31 15:37 | NUR ---
pt arrived to unit. site checked with prosthetic lab technician rn. attached to monitor. vss.
[2020-07-31] MEDS ORDERED: traMADol 50 MG TABLET PO PRN (16:30)
[2020-07-31] MEDS ORDERED: ACETAMINOPHEN 325 MG TABLET. PO PRN (16:30)
[2020-07-31] MEDS: hydrALAZINE 25 MG TABLET PO SCH ×2 (16:57→21:09)
[2020-07-31] MEDS ORDERED: hydrALAZINE 25 MG TABLET PO SCH (21:00)
[2020-07-31] MEDS: LABETALOL HCL 200 MG TABLET PO SCH (21:09)
[2020-08-01 03:15] VITALS: BP 151/65
[2020-08-01 07:00] VITALS: BP 192/72
[2020-08-01] MEDS: LABETALOL HCL 200 MG TABLET PO SCH (09:18)
[2020-08-01] MEDS: hydrALAZINE 25 MG TABLET PO SCH ×2 (09:18→14:00)
--- NOTE | 2020-08-01 10:05 | RAD ---
CHEST PA LATERAL INDICATION: Reason: 1 DAY POST PACEMAKER / Spl. Instructions: / History: . COMPARISON STUDY: 07/31/2020. FINDINGS: Life Support Devices: Left pectoral pacemaker. Lungs: Hyperexpanded lung volume. No confluent consolidation. Improved interstitial prominence. Pleura: No pleural effusion or pneumothorax. Heart and Mediastinum: Stable cardiomediastinal silhouette and great vessels. IMPRESSION: Improved interstitial prominence. Electronically signed by: Jeffrey Chase MD (08/01/2020 10:02 AM) [facility]
[2020-08-01 10:52] VITALS: BP 176/72
[2020-08-01] MEDS ORDERED: amLODIPine BESYLATE 10 MG TABLET PO ONE (12:00)
[2020-08-01] MEDS ORDERED: ASPI-886 PO (12:20)
--- NOTE | 2020-08-01 12:29 | PDOC3 ---
VINAYAK SURESH BLIND AIDE 08/01/20 1228: Discharge Summary Visit Information Date of Admission: Jul 31, 2020 Date of Discharge: Aug 01, 2020 Admitting Diagnosis: SSS, HTN, CKD4, HLP, PAFIB Final Diagnosis SSS, HTN, CKD4, HLP, PAFIB, S/P PPM Brief Hospital Course Allergies Allergies Coded Allergies Type Severity Reaction Last Updated Verified codeine Adverse Reaction Intermediate GI Upset 09/08/19 Yes hydrocodone Adverse Reaction Intermediate GI Upset 09/08/19 Yes Vital Signs Vital Signs Date Time Temp Pulse Resp B/P (MAP) Pulse Ox O2 Delivery O2 Flow Rate FiO2 08/01/20 11:56 60 176/72 08/01/20 10:52 98.1 19 97 Room Air 98.1 07/31/20 09:30 2.0 Lab Results Laboratory Tests Test 07/31/20 07:40 White Blood Count 6.4 x10^3/uL (4.0-11.0) Red Blood Count 3.60 x10^6/uL (3.50-5.40) Hemoglobin 10.9 g/dL (12.0-15.5) Hematocrit 32.0 % (36.0-47.0) Mean Corpuscular Volume 89 fL (79-100) Mean Corpuscular Hemoglobin 30 pg (25-35) Mean Corpuscular Hemoglobin Concent 34 g/dL (31-37) Red Cell Distribution Width 14.2 % (11.5-14.5) Platelet Count 354 x10^3/uL (140-400) Prothrombin Time 12.5 SEC (11.7-14.0) Prothromb Time International Ratio 1.0 (0.8-1.1) Sodium Level 140 mmol/L (136-145) Potassium Level 4.0 mmol/L (3.5-5.1) Chloride Level 105 mmol/L (98-107) Carbon Dioxide Level 23 mmol/L (21-32) Anion Gap 12 (6-14) Blood Urea Nitrogen 53 mg/dL (7-20) Creatinine 3.7 mg/dL (0.6-1.0) Estimated GFR (Cockcroft-Gault) 11.9 Glucose Level 118 mg/dL (70-99) Calcium Level 7.9 mg/dL (8.5-10.1) Brief Hospital Course Ms. Taveras is a 74 old female admitted for planned permanent pacemaker placement. Previous MCOT noted with 3% AFIB burden and 2 episodes of long pauses denoting tachy enrique syndrome/SSS. She had a successful implantation of Biotronik dual-chamber permanent pacemaker. She tolerated the procedure well without immediate complications. AOX3, LSCTA, CXR reviewed with good lead placement. Repeat interrogation revealed normal functioning device. No CP, SOA and surgical pain is controlled. Left chest surgical site is intact with steri strips. No erythema or significant oozing. No swelling and LA is on a sling and left arm neurovascular status is intact. She is in SR with intermittent V pacing. Discussed post op PPM care. She is to go home with her son in the house. Will have PT/OT see her prior to her DC and note any further pointers for safety. She is to continue her home meds including ASA. Will check her AFIB burden moving forward for any consideration for anticoagulation but at this time likely a poor candidate given her low CrCL. She has an appointment with Dr. Christianson her anode rebuilder on the . Follow up in office for a wound check in 2 weeks time. Discharge Information Condition at Discharge: Stable Follow Up: Weeks (2) Disposition/Orders: D/C to Home Scheduled Albuterol Sulfate (Ventolin Hfa Inhaler) 18 Gm Hfa.aer.ad, 2 PUFF INH QID for FOR ASTHMA, Ref 0 (Reported) Entered as Reported by: NADIRA PARKER on 07/31/20803 Last Taken: Unknown Dose on 07/31/20699 Last Action: New Order on 07/31/20803 by NADIRA PARKER Albuterol Sulfate (Albuterol Sulfate Conc Neb Soln) 2.5 Mg/0.5 Ml Vial.neb, 1 VIAL NEB Q4HRS for shortness of breath, #60 Ref 1 (Reported) Entered as Reported by: NADIRA PARKER on 07/31/20803 Last Taken: Unknown Dose on 07/31/20699 Last Action: New Order on 07/31/20803 by NADIRA PARKER Amlodipine Besylate (Amlodipine Besylate) 10 Mg Tablet, 1 TAB PO DAILY, #30 Ref 5 (Reported) Entered as Reported by: GARRICK SWIFT on 07/18/15916 Last Taken: Unknown Dose on 07/31/20699 Last Action: Last Taken Edited on 07/31/20803 by NADIRA PARKER Aspirin (Aspirin Ec) 81 Mg Tablet.dr, 1 TAB PO DAILY for afib for 30 Days, #30 Ref 3 Prescribed by: VINAYAK SURESH on 08/01/20 1220 Budesonide (Pulmicort) 0.5 Mg/2 Ml Ampul.neb, 1 VIAL NEB BID for shortness of breath, #60 Ref 3 (Reported) Entered as Reported by: NADIRA PARKER on 07/31/20803 Last Taken: Unknown Dose on 07/31/20699 Last Action: New Order on 07/31/20803 by NADIRA PARKER Hydralazine Hcl (Hydralazine Hcl) 25 Mg Tablet, 1 TAB PO TID for blood pressure, #90 Ref 5 (Reported) Entered as Reported by: NADIRA PARKER on 07/31/20803 Last Taken: Unknown Dose on 07/31/20699 Last Action: Continued on 07/31/201624 by MARIFER MURRIETA Labetalol Hcl (Labetalol Hcl) 200 Mg Tablet, 1 TAB PO BID, #60 Ref 5 (Reported) Entered as Reported by: GARRICK SWIFT on 07/18/15916 Last Taken: 300mg on 07/31/20699 Last Action: Continued on 07/31/201624 by MARIFER MURRIETA Lansoprazole (Lansoprazole) 30 Mg Capsule., 30 MG PO BID, #60 (Reported) Entered as Reported by: JENNIFER BECK on 04/13/151548 Last Taken: Unknown Dose on 07/31/20699 Last Action: Last Taken Edited on 07/31/20803 by NADIRA PARKER Scheduled PRN Nitroglycerin (Nitrostat) 0.4 Mg Tab.subl, 0.4 MG SL PRN Q5MIN PRN for chest pain for 30 Days Prescribed by: SPENCER HUIZAR MD on 04/14/15 1605 Tramadol Hcl (Tramadol Hcl) 50 Mg Tablet, 50 MG PO PRN TID PRN for PAIN, #60 (Reported) Entered as Reported by: JENNIFER BECK on 04/13/151548 Last Taken: Unknown Dose on 8/31/20 0700 Last Action: Continued on 07/31/20 1625 by MARIFER MURRIETA Patient Instructions Patient Instructions Must know & what to expect after device implant: 1. Your surgical dressing should be removed prior to discharge from the hospital, but allow the steri- strips to fall off naturally. 2. Activity restrictions: DO NOT raise arm above shoulder level, lift anything heavier than a gallon of milk, and no push or pull motions such as vacuuming/lawn mowing, no swinging motions (golf), etc for 4 weeks. 3. It is OK to use a cell phone or other electronic devices just be sure you do not store it in a breast pocket on the side where the device was placed. 4. Device will be interrogated prior to your discharge from the hospital and then every 3 months for defibrillators and every 6 months for pacemakers. You may be asked to have your device checked remotely from home as well, but this will depend on your particular physicians preference. 5. You may remove the arm immobilizer the day after device placement. Wear the arm immobilizer/splint at night (during sleep times) for 2 week to prevent unintended arm movement that can cause lead dislodgement. 6. Do not drive for one week as the task of driving may lead to unintended arm motion that may cause lead dislodgement. The seatbelt will also rub against the incision site & cause irritation. 7. It is our recommendation that you utilize Tylenol at home for pain control. You need to call our office if you are having uncontrollable pain at the incision site. 8. Keep your incision clean and dry. It is OK to shower. DO NOT submerge in bath, pool, or hot tub, until cleared by your doctor, as this could lead to increase risk of infection.. It is OK to use regular soap just do not scrub the incision site. Water spray from shower should not directly hit the incision. Be sure to blot dry not rub. 9. Inspect your incision daily. If you notice any increased redness, swelling, or drainage, or if you start running a fever, call the office immediately. The number is [phone]. 10. For women, if you need to protect against irritation from the bra straps, you can place a piece of gauze over the incision site for cushion. Please be sure to tape it loosely to allow air to the site & remove the gauze when you remove the bra. 11. Be sure to carry your device identification information card in your wallet/purse at all times. 12. It is OK to go through security at the airport with your device, but be sure to let the TSA know prior to proceeding as the security settings change depending on varying factors. Please do whatever is requested by security at that time. 13. Some of the newer devices may be MRI compatible but, currently, the use of these devices is not widespread, so you likely will not be able to have an MRI. Please clarify this with your physician. If at any time, you feel lightheaded or dizzy/faint, stop what you are doing & lie down immediately. If you are driving, get to the side of the road quickly, turn your car off & call 911 on your cell phone. DO NOT continue to drive as this may cause an accident that seriously injures yourself &/or others. Call the office at [phone] for any questions or concerns. Justicifation of Admission Dx: Justifications for Admission: Justification of Admission Dx: Yes BIRD CHAMORRO MD 08/01/202151: Discharge Summary Brief Hospital Course Brief Hospital Course Patient seen and examined in HD unit. Agree with CLIENT SERVICES ASSOCIATE's assessment and plan. s/p PPM for SSS yesterday. Incision looks good. CXR without any pneumothorax and device check shows normal function DC home today and follow up in office as scheduled Discharge Information Scheduled Albuterol Sulfate (Ventolin Hfa Inhaler) 18 Gm Hfa.aer.ad, 2 PUFF INH QID for FOR ASTHMA, Ref 0 (Reported) Entered as Reported by: NADIRA PARKER on 07/31/20803 Last Taken: Unknown Dose on 07/31/20699 Last Action: New Order on 07/31/20803 by NADIRA PARKER Albuterol Sulfate (Albuterol Sulfate Conc Neb Soln) 2.5 Mg/0.5 Ml Vial.neb, 1 VIAL NEB Q4HRS for shortness of breath, #60 Ref 1 (Reported) Entered as Reported by: NADIRA PARKER on 07/31/20803 Last Taken: Unknown Dose on 07/31/20699 Last Action: New Order on 07/31/20803 by NADIRA PARKER Amlodipine Besylate (Amlodipine Besylate) 10 Mg Tablet, 1 TAB PO DAILY, #30 Ref 5 (Reported) Entered as Reported by: GARRICK SWIFT on 07/18/15916 Last Taken: Unknown Dose on 07/31/20699 Last Action: Last Taken Edited on 07/31/20803 by NADIRA PARKER Aspirin (Aspirin Ec) 81 Mg Tablet.dr, 1 TAB PO DAILY for afib for 30 Days, #30 Ref 3 Prescribed by: VINAYAK SURESH on 08/01/20 1220 Budesonide (Pulmicort) 0.5 Mg/2 Ml Ampul.neb, 1 VIAL NEB BID for shortness of breath, #60 Ref 3 (Reported) Entered as Reported by: NADIRA PARKER on 07/31/20803 Last Taken: Unknown Dose on 07/31/20699 Last Action: New Order on 07/31/20803 by NADIRA PARKER Hydralazine Hcl (Hydralazine Hcl) 25 Mg Tablet, 1 TAB PO TID for blood pressure, #90 Ref 5 (Reported) Entered as Reported by: NADIRA PARKER on 07/31/20803 Last Taken: Unknown Dose on 07/31/20699 Last Action: Continued on 07/31/201624 by MARIFER MURRIETA Labetalol Hcl (Labetalol Hcl) 200 Mg Tablet, 1 TAB PO BID, #60 Ref 5 (Reported) Entered as Reported by: GARRICK SWIFT on 07/18/15916 Last Taken: 300mg on 07/31/20699 Last Action: Continued on 07/31/201624 by MARIFER MURRIETA Lansoprazole (Lansoprazole) 30 Mg Capsule.dr, 30 MG PO BID, #60 (Reported) Entered as Reported by: JENNIFER BECK on 04/13/15 1549 Last Taken: Unknown Dose on 07/31/20699 Last Action: Last Taken Edited on 07/31/20803 by NADIRA PARKER Scheduled PRN Nitroglycerin (Nitrostat) 0.4 Mg Tab.subl, 0.4 MG SL PRN Q5MIN PRN for chest pain for 30 Days Prescribed by: SPENCER HUIZAR MD on 5/15/15 1605 Tramadol Hcl (Tramadol Hcl) 50 Mg Tablet, 50 MG PO PRN TID PRN for PAIN, #60 (Reported) Entered as Reported by: JENNIFER BECK on 04/13/15 1549 Last Taken: Unknown Dose on 07/31/20 0700 Last Action: Continued on 07/31/20 1625 by VINAYAK VAUGHN APRN Aug 01, 2020 12:28 BIRD CHAMORRO MD Aug 01, 2020 21:52
[2020-08-01 13:04] LABS: CHOLESTEROL/HDL RATIO 2.4
--- NOTE | 2020-08-01 13:17 | NUR ---
SS following for discharge planning. SS reviewed pt chart and discussed with pt RN. Pt is from home with spouse and is currently on room air. Discharge order on the chart for home with self care.
[2020-08-01 15:03] VITALS: BP 148/96
--- NOTE | 2020-08-01 15:22 | NUR ---
Pt left unit at approx 1520 by wheelchair via private vehicle. Pt's IV's removed with no complications. VSS. Discharge paperwork, follow-up, and post-pacemaker instructions discussed and sent with pt. Additional questions addressed.
== END 2020-08-01 15:32 | disposition home or self-care (01) ==
LOC: CCL 07:09 → 2 NORTH 15:10
PROVIDERS: ADMIT Internal Medicine Cardiovascular Disease; ATTEND Internal Medicine Cardiovascular Disease
DX: I49.5 Sick sinus syndrome (principal); I12.9 Hypertensive chronic kidney disease with stage 1 through stage 4 chronic kidney disease, or unspecified chronic kidney disease; N18.4 Chronic kidney disease, stage 4 (severe); E78.5 Hyperlipidemia, unspecified; I48.0 Paroxysmal atrial fibrillation; J45.909 Unspecified asthma, uncomplicated; Z79.82 Long term (current) use of aspirin; Z79.899 Other long term (current) drug therapy; Z95.0 Presence of cardiac pacemaker
CPT/HCPCS: 33208; 36415; 71045; 71046; 80048; 80061; 85027; 85610; 93005; 96361; 96374; 96375; 97161; 97165; 99152; 99153; 99406; C1785; C1898; G0378; G0379; J0690; J2250; J3010; J3490; J7030; J7050

== ENCOUNTER → 2021-01-10 | Outpatient (CLI) | payer BC, MEDICARE ==
[~2021-01-10] MED LIST changes: +ALBU2.5V14 NEB; +AMLO-187 PO; -AMLO10TA8 PO; +APIX5TAB PO; +ASPI-886 PO; +BUDE0.5A3 NEB; +FERR-36 PO; +HYDR-2868 PO; +LABE300T2 PO; +VENTOLIN HFA18 GM INH
== END ==
LOC: LAB 10:20
PROVIDERS: ATTEND Surgery Vascular Surgery
DX: Z01.812 Encounter for preprocedural laboratory examination (principal); Z20.822 Contact with and (suspected) exposure to COVID-19
CPT/HCPCS: U0003

== ENCOUNTER 2021-01-12 06:14 | Day surgery (SDC) | payer BC, MEDICARE ==
[~2021-01-12] VITALS: Ht 165.1 cm; Wt 59.0 kg
[~2021-01-12 06:14] MED LIST changes: -FERR-36 PO; +HEPARIN SODIUM 5,000 UNIT in IV NORMAL SALINE 500ML BAG 500 ML IRR ONE; +HYDROmorphone 2 MG/ML VIAL IVP PRN; +IV RINGERS,LACTATED 1000ML 1,000 ML IV SCH; +MORPHINE SULFATE 2 MG/ML VIAL. IVP PRN; +PROCHLORPERAZINE 10 MG/2 ML VIAL. IVP PRN; +fentaNYL PF VIAL 100 MCG/2 ML VIAL IVP PRN
[2021-01-12] MEDS ORDERED: PROPOFOL 10 MG/ML (20ML) VIAL. IV ONE (06:32)
[2021-01-12] MEDS ORDERED: LIDOCAINE 2% PF 5 ML VIAL. ONE (06:32)
[2021-01-12] MEDS ORDERED: DEXAMETHASONE SOD PHOS 20 MG/5 ML VIAL. ONE (06:32)
[2021-01-12] MEDS ORDERED: ONDANSETRON PF 4 MG/2 ML VIAL. ONE (06:32)
[2021-01-12] MEDS ORDERED: PAPAVERINE 60 MG/2 ML VIAL. ONE (07:00)
[2021-01-12] MEDS ORDERED: SURGICEL FIBRILLAR 1X2 EACH. ONE (07:00)
[2021-01-12] MEDS ORDERED: LIDOCAINE 1% Multi-Dose 20 ML VIAL. ONE ×2 (07:00)
[2021-01-12 07:02] LABS: BASO % 1 % (0-3); EOS # 0.2 x10^3/uL (0.0-0.7); EOS % 4 % (0-3); HEMATOCRIT 25.1 % (36.0-47.0); HEMOGLOBIN 8.4 g/dL (12.0-15.5); LYMPH # 0.8 x10^3/uL (1.0-4.8); LYMPH % 12 % (24-48); MEAN CORPUSCULAR HEMOGLOBIN 30 pg (25-35); MEAN CORPUSCULAR HGB CONC 34 g/dL (31-37); MEAN CORPUSCULAR VOLUME 89 fL (79-100); MONO # 0.6 x10^3/uL (0.0-1.1); MONO % 10 % (0-9); NEUT # 4.8 x10^3/uL (1.8-7.7); NEUT % 74 % (31-73); PLATELET COUNT 316 x10^3/uL (140-400); RED BLOOD COUNT 2.81 x10^6/uL (3.50-5.40); RED CELL DISTRIBUTION WIDTH 14.3 % (11.5-14.5); WHITE BLOOD COUNT 6.5 x10^3/uL (4.0-11.0)
[2021-01-12 07:11] LABS: CALCIUM 6.7 mg/dL (8.5-10.1); CREATININE 5.9 mg/dL (0.6-1.0); POTASSIUM 4.1 mmol/L (3.5-5.1)
[2021-01-12] MEDS ORDERED: PROPOFOL 50 ML IV ONE ×2 (07:12→08:25)
[2021-01-12] MEDS ORDERED: HEPARIN for IV BOLUS 10,000 UNIT/10 ML VIAL. ONE (08:03)
[2021-01-12] MEDS ORDERED: PHENYLEPHRINE in 0.9% NACL PF 1 MG/10 ML SYRINGE. IV ONE (08:15)
--- NOTE | 2021-01-12 08:46 | PDOC4 ---
OPERATIVE NOTE Date: Date: Jan 12, 2021 Pre-Op Diagnosis: Chronic kidney disease impending need for renal replacement therapy Post-Op Diagnosis: Same as above Procedure Performed: Right arm direct brachial basilic AV fistula Surgeon: Alex Ventura MD Anesthesia Type: MAC local Blood Loss: 5 cc Specimans Obtained: None Findings: Basilic vein was borderline but I was easily able to pass a 3 mm dilator through it so we attempted a direct fistula. There was a thrill in the fistula and good radial ulnar signals at the end of the case Complications: None Operative Note: Patient was taken to the operating room placed supine on the table. Anesthesia induced without difficulty. The right arm was examined with ultrasound and the vein was marked. The right arm was prepped and draped in usual sterile fashion. Appropriate timeout was performed Attention was directed to the right arm in the area of the antecubital fossa where a small longitudinal incision was made over the brachial artery. This was carried out Bovie cautery and sharp dissection to the artery was identified dissected free from surrounding structures and controlled with Vesseloops. I directed dissection slightly more medially and identified the basilic vein. This appeared better on visualization on the ultrasound. I dissected this free, occluded it with clips as distally within the arm as possible and did just above these clips. I was easily able to flush the vein and was able to pass a 2.5 and 3.0 mm dilator through the vein. The patient was given intravenous heparin and the vein was brought to the brachial artery under no tension. The artery was occluded proximally distally and then a small longitudinal arteriotomy was created with a #11 scalpel and extended with Pineda angled scissors. The vein was spatulated to match and a standard end to side anastomosis was created between the vein and the arteries in a running 7-0 Prolene suture. The repair was completed normal for flow was returned through the fistula and then to the hand. There was a palpable thrill in the fistula and a good radial and ulnar signal in the hand using a hand-held continuous-wave Doppler. Excellent hemostasis was ensured throughout the operative field and the wound was closed. Deep layers were closed with interrupted 3-0 Vicryl's and the skin was closed with a subcuticular 4-0 Vicryl. The arm was cleaned and dried and a sterile dressing was placed over the incision. The patient was awakened and escorted recovery in stable condition. There are no complications and she tolerated procedure well throughout. At the end of the case all sponge, needle, and instrument counts were reported to me as correct x2. VANESSA VENTURA MD Jan 12, 2021 08:46
[2021-01-12] MEDS ORDERED: ALBUTEROL SULFATE 2.5 MG/3 ML NEBU. NEB ONE (09:15)
--- NOTE | 2021-01-12 09:16 | PDOC ---
PROGRESS NOTES Date of Service DATE: 01/12/21 TIME: 09:14 Subjective Subjective Patient seen and examined in the recovery room status post right arm AV fistula She has no complaints, denies any pain paresthesias or weakness in the right hand, she has a palpable right radial pulse and a palpable thrill in the fistu la. The incision has no hematoma is clean dry and intact. Doing well, plan discharge today, follow-up in a couple weeks in the office for wound check Objective Objective Vital Signs Date Time Temp Pulse Resp B/P (MAP) Pulse Ox O2 Delivery O2 Flow Rate FiO2 01/12/21 07:16 98.1 68 24 195/68 95 Room Air 98.1 Comment Review of Relevant I have reviewed the following items tiana (where applicable) has been applied. Labs Laboratory Tests Test 01/12/21 06:20 White Blood Count 6.5 x10^3/uL (4.0-11.0) Red Blood Count 2.81 x10^6/uL (3.50-5.40) Hemoglobin 8.4 g/dL (12.0-15.5) Hematocrit 25.1 % (36.0-47.0) Mean Corpuscular Volume 89 fL (79-100) Mean Corpuscular Hemoglobin 30 pg (25-35) Mean Corpuscular Hemoglobin Concent 34 g/dL (31-37) Red Cell Distribution Width 14.3 % (11.5-14.5) Platelet Count 316 x10^3/uL (140-400) Neutrophils (%) (Auto) 74 % (31-73) Lymphocytes (%) (Auto) 12 % (24-48) Monocytes (%) (Auto) 10 % (0-9) Eosinophils (%) (Auto) 4 % (0-3) Basophils (%) (Auto) 1 % (0-3) Neutrophils # (Auto) 4.8 x10^3/uL (1.8-7.7) Lymphocytes # (Auto) 0.8 x10^3/uL (1.0-4.8) Monocytes # (Auto) 0.6 x10^3/uL (0.0-1.1) Eosinophils # (Auto) 0.2 x10^3/uL (0.0-0.7) Basophils # (Auto) 0.0 x10^3/uL (0.0-0.2) Sodium Level 138 mmol/L (136-145) Potassium Level 4.1 mmol/L (3.5-5.1) Chloride Level 108 mmol/L (98-107) Carbon Dioxide Level 15 mmol/L (21-32) Anion Gap 15 (6-14) Blood Urea Nitrogen 60 mg/dL (7-20) Creatinine 5.9 mg/dL (0.6-1.0) Estimated GFR (Cockcroft-Gault) 7.0 Glucose Level 117 mg/dL (70-99) Calcium Level 6.7 mg/dL (8.5-10.1) Laboratory Tests Test 01/12/21 06:20 White Blood Count 6.5 x10^3/uL (4.0-11.0) Red Blood Count 2.81 x10^6/uL (3.50-5.40) Hemoglobin 8.4 g/dL (12.0-15.5) Hematocrit 25.1 % (36.0-47.0) Mean Corpuscular Volume 89 fL (79-100) Mean Corpuscular Hemoglobin 30 pg (25-35) Mean Corpuscular Hemoglobin Concent 34 g/dL (31-37) Red Cell Distribution Width 14.3 % (11.5-14.5) Platelet Count 316 x10^3/uL (140-400) Neutrophils (%) (Auto) 74 % (31-73) Lymphocytes (%) (Auto) 12 % (24-48) Monocytes (%) (Auto) 10 % (0-9) Eosinophils (%) (Auto) 4 % (0-3) Basophils (%) (Auto) 1 % (0-3) Neutrophils # (Auto) 4.8 x10^3/uL (1.8-7.7) Lymphocytes # (Auto) 0.8 x10^3/uL (1.0-4.8) Monocytes # (Auto) 0.6 x10^3/uL (0.0-1.1) Eosinophils # (Auto) 0.2 x10^3/uL (0.0-0.7) Basophils # (Auto) 0.0 x10^3/uL (0.0-0.2) Sodium Level 138 mmol/L (136-145) Potassium Level 4.1 mmol/L (3.5-5.1) Chloride Level 108 mmol/L (98-107) Carbon Dioxide Level 15 mmol/L (21-32) Anion Gap 15 (6-14) Blood Urea Nitrogen 60 mg/dL (7-20) Creatinine 5.9 mg/dL (0.6-1.0) Estimated GFR (Cockcroft-Gault) 7.0 Glucose Level 117 mg/dL (70-99) Calcium Level 6.7 mg/dL (8.5-10.1) Medications Current Medications Fentanyl Citrate (Fentanyl 2ml Vial) 25 mcg PRN Q5MIN PRN IVP MILD PAIN 1-3; Start 01/12/21 at 06:00; Stop 01/13/21 at 05:59 Fentanyl Citrate (Fentanyl 2ml Vial) 50 mcg PRN Q5MIN PRN IVP MODERATE PAIN 4- 6; Start 01/12/21 at 06:00; Stop 01/13/21 at 05:59 Morphine Sulfate (Morphine Sulfate) 1 mg PRN Q10MIN PRN IVP SEVERE PAIN 7-10; Start 01/12/21 at 06:00; Stop 01/13/21 at 05:59 Ringer's Solution 1,000 ml @ 30 mls/hr Q24H IV Last administered on 01/12/21at 06:54; Start 01/12/21 at 06:00; Stop 01/12/21 at 17:59 Hydromorphone HCl (Dilaudid) 0.5 mg PRN Q10MIN PRN IVP SEVERE PAIN 7-10, 2nd CHOICE; Start 01/12/21 at 06:00; Stop 01/13/21 at 05:59 Prochlorperazine Edisylate (Compazine) 5 mg PACU PRN PRN IVP NAUSEA, MRX1; Start 01/12/21 at 06:00; Stop 01/13/21 at 05:59 Heparin Sodium (Porcine) 5000 unit/Sodium Chloride 505 ml @ 505 mls/hr 1X ONCE IRR Last administered on 01/12/21at 07:46; Start 01/12/21 at 06:00; Stop 01/12/21 at 06:59; Status DC Cefazolin Sodium 1 gm/Sodium Chloride 500 ml @ 500 mls/hr 1X ONCE IRR Last administered on 01/12/21at 07:46; Start 01/12/21 at 06:00; Stop 01/12/21 at 06:59; Status DC Cefazolin Sodium/ Dextrose 50 ml @ 100 mls/hr 1X PREOP PRN IV PRIOR TO PROCEDURE Last administered on 01/12/21at 07:21; Start 01/12/21 at 06:00; Stop 01/12/21 at 18:00 Propofol (Diprivan) 200 mg STK-MED ONCE IV ; Start 01/12/21 at 06:32; Stop 01/12/21 at 06:32; Status DC Lidocaine HCl (Lidocaine Pf 2% Vial) 5 ml STK-MED ONCE .ROUTE ; Start 01/12/21 at 06:32; Stop 01/12/21 at 06:32; Status DC Dexamethasone Sodium Phosphate (Decadron) 20 mg STK-MED ONCE .ROUTE ; Start 01/12/21 at 06:32; Stop 01/12/21 at 06:33; Status DC Ondansetron HCl (Zofran) 4 mg STK-MED ONCE .ROUTE ; Start 01/12/21 at 06:32; Stop 01/12/21 at 06:33; Status DC Lidocaine HCl (Lidocaine 1% 20ml Vial) 20 ml STK-MED ONCE .ROUTE Last administered on 01/12/21at 07:46; Start 01/12/21 at 07:00; Stop 01/12/21 at 07:00; Status DC Cellulose (Surgicel Fibrillar 1x2) 1 each STK-MED ONCE .ROUTE ; Start 01/12/21 at 07:00; Stop 01/12/21 at 07:00; Status DC Papaverine HCl 60 mg STK-MED ONCE .ROUTE ; Start 01/12/21 at 07:00; Stop 01/12/21 at 07:00; Status DC Lidocaine HCl (Lidocaine 1% 20ml Vial) 20 ml STK-MED ONCE .ROUTE ; Start 01/12/21 at 07:00; Stop 01/12/21 at 07:00; Status DC Propofol 50 ml @ As Directed STK-MED ONCE IV ; Start 01/12/21 at 07:12; Stop 01/12/21 at 07:12; Status DC Heparin Sodium (Porcine) (Heparin Sodium) 10,000 unit STK-MED ONCE .ROUTE ; Start 01/12/21 at 08:03; Stop 01/12/21 at 08:04; Status DC Phenylephrine HCl (PHENYLEPHRINE in 0.9% NACL PF) 1 mg STK-MED ONCE IV ; Start 01/12/21 at 08:15; Stop 01/12/21 at 08:16; Status DC Propofol 50 ml @ As Directed STK-MED ONCE IV ; Start 01/12/21 at 08:25; Stop 01/12/21 at 08:25; Status DC Active Scripts Active Reported Eliquis (Apixaban) 5 Mg Tablet 5 Mg PO BID Labetalol Hcl 300 Mg Tablet 300 Mg PO BID Albuterol Sulfate Conc Neb Soln (Albuterol Sulfate) 2.5 Mg/0.5 Ml Vial.neb 1 Vial NEB Q4HRS Ventolin Hfa Inhaler (Albuterol Sulfate) 18 Gm Hfa.aer.ad 2 Puff INH QID Hydralazine Hcl 25 Mg Tablet 1 Tab PO TID Amlodipine Besylate 10 Mg Tablet 1 Tab PO DAILY Tramadol Hcl 50 Mg Tablet 50 Mg PO PRN TID PRN Lansoprazole 30 Mg Capsule.dr 30 Mg PO BID Vitals/I & O Vital Sign - Last 24 Hours 01/12/21 01/12/21 06:54 07:16 Temp 98.1 98.1 98.1 98.1 Pulse 68 68 Resp 24 24 B/P (MAP) 195/68 Pulse Ox 95 95 O2 Delivery Room Air Justifications for Admission Other Justification VANESSA VENTURA MD Jan 12, 2021 09:16
[2021-01-12 09:42] VITALS: BP 154/62
[2021-01-12] MEDS ORDERED: traMADol 50 MG TABLET PO PRN (09:45)
== END 2021-01-12 10:26 | disposition home or self-care (01) ==
LOC: SURG 06:14
PROVIDERS: ATTEND Surgery Vascular Surgery
DX: I12.0 Hypertensive chronic kidney disease with stage 5 chronic kidney disease or end stage renal disease (principal); N18.6 End stage renal disease; E78.00 Pure hypercholesterolemia, unspecified; J44.9 Chronic obstructive pulmonary disease, unspecified; K21.9 Gastro-esophageal reflux disease without esophagitis; I25.10 Atherosclerotic heart disease of native coronary artery without angina pectoris; G47.30 Sleep apnea, unspecified; M19.90 Unspecified osteoarthritis, unspecified site; F17.210 Nicotine dependence, cigarettes, uncomplicated; Z90.710 Acquired absence of both cervix and uterus; Z98.890 Other specified postprocedural states; Z72.89 Other problems related to lifestyle; Z99.2 Dependence on renal dialysis; Z79.899 Other long term (current) drug therapy; Z88.5 Allergy status to narcotic agent; Z88.8 Allergy status to other drugs, medicaments and biological substances; Z82.49 Family history of ischemic heart disease and other diseases of the circulatory system
CPT/HCPCS: 36415; 36821; 80048; 85025; J0690; J1644; J2370; J2704; J3490; J7040; J7613; J1100; J2405; J2440

== ENCOUNTER 2021-01-16 13:11 | Inpatient (IN) | payer BC, MEDICARE ==
[~2021-01-16] VITALS: Ht 165.1 cm; Wt 57.2 kg
[~2021-01-16 13:11] MED LIST changes: -HEPARIN SODIUM 5,000 UNIT in IV NORMAL SALINE 500ML BAG 500 ML IRR ONE; -HYDROmorphone 2 MG/ML VIAL IVP PRN; -IV RINGERS,LACTATED 1000ML 1,000 ML IV SCH; -MORPHINE SULFATE 2 MG/ML VIAL. IVP PRN; -PROCHLORPERAZINE 10 MG/2 ML VIAL. IVP PRN; -fentaNYL PF VIAL 100 MCG/2 ML VIAL IVP PRN
--- NOTE | 2021-01-16 14:40 | PHYS DOC ---
Past Medical History Past Medical History: High Cholesterol, Hypertension, Renal Failure Additional Past Medical Histor: stomach ulcer Past Surgical History: Hysterectomy Additional Past Surgical Histo: kidney shunts, knee surgery, hip surgery Smoking Status: Current Every Day Smoker Alcohol Use: Occasionally Drug Use: None General Adult EDM: Chief Complaint: ABNORMAL LABS HPI: HPI: Patient is a 75 year old female who was told by her dietitian chief to come to ER for hemodialysis. Patient has history of end-stage renal failure, she recently had fistula placed on the right arm last week. Patient was seen by her dietitian chief on Friday, had some basic lab work done. Patient was called by her dietitian chief yesterday to come to the ER for dialysis, patient did not feel well so she did not come. She decided to come today. Patient denies any cough or fever. Patient had COVID-19 infection last March. Patient denies any chest pain, no abdominal pain, no nausea vomiting. Review of Systems: Review of Systems: Constitutional: Denies fever or chills. Positive for generalized weakness per Eyes: Denies change in visual acuity. [] HENT: Denies nasal congestion or sore throat. [] Respiratory: Denies cough or shortness of breath. [] Cardiovascular: Denies chest pain or edema. [] GI: Denies abdominal pain, nausea, vomiting, bloody stools or diarrhea. [] : Denies dysuria. [] Musculoskeletal: Denies back pain or joint pain. [] Integument: Denies rash. [] Neurologic: Denies headache, focal weakness or sensory changes. [] Endocrine: Denies polyuria or polydipsia. [] Lymphatic: Denies swollen glands. [] Psychiatric: Denies depression or anxiety. [] Heart Score: Risk Factors: Risk Factors: DM, Current or recent (<one month) smoker, HTN, HLP, family history of CAD, obesity. Risk Scores: Score 0 - 3: 2.5% MACE over next 6 weeks - Discharge Home Score 4 - 6: 20.3% MACE over next 6 weeks - Admit for Clinical Observation Score 7 - 10: 72.7% MACE over next 6 weeks - Early Invasive Strategies Allergies: Allergies: Allergies Coded Allergies Type Severity Reaction Last Updated Verified codeine Adverse Reaction Intermediate GI Upset 01/12/21 Yes hydrocodone Adverse Reaction Intermediate GI Upset 01/12/21 Yes Physical Exam: PE: Constitutional: Well developed, well nourished, no acute distress, non-toxic appearance. [] HENT: Normocephalic, atraumatic, bilateral external ears normal, oropharynx moist, no oral exudates, nose normal. [] Eyes: PERRLA, EOMI, conjunctiva normal, no discharge. [] Neck: Normal range of motion, no tenderness, supple, no stridor. [] Cardiovascular:Heart rate regular rhythm, no murmur [] Lungs & Thorax: Bilateral breath sounds clear to auscultation [] Abdomen: Bowel sounds normal, soft, no tenderness, no masses, no pulsatile masses. [] Skin: Warm, dry, no erythema, no rash. AV fistula on the right arm with thrill Back: No tenderness, no CVA tenderness. [] Extremities: No tenderness, no cyanosis, no clubbing, ROM intact, no edema. [] Neurologic: Alert and oriented X 3, normal motor function, normal sensory function, no focal deficits noted. [] Psychologic: Affect normal, judgement normal, mood normal. [] Current Patient Data: Labs: Laboratory Tests Test 01/16/21 15:10 White Blood Count 6.8 x10^3/uL Red Blood Count 3.08 x10^6/uL Hemoglobin 9.2 g/dL Hematocrit 27.5 % Mean Corpuscular Volume 89 fL Mean Corpuscular Hemoglobin 30 pg Mean Corpuscular Hemoglobin Concent 33 g/dL Red Cell Distribution Width 14.3 % Platelet Count 351 x10^3/uL Neutrophils (%) (Auto) 70 % Lymphocytes (%) (Auto) 16 % Monocytes (%) (Auto) 10 % Eosinophils (%) (Auto) 3 % Basophils (%) (Auto) 1 % Neutrophils # (Auto) 4.8 x10^3/uL Lymphocytes # (Auto) 1.1 x10^3/uL Monocytes # (Auto) 0.6 x10^3/uL Eosinophils # (Auto) 0.2 x10^3/uL Basophils # (Auto) 0.1 x10^3/uL Prothrombin Time 14.3 SEC Prothromb Time International Ratio 1.2 Activated Partial Thromboplast Time 40 SEC Sodium Level 144 mmol/L Potassium Level 3.5 mmol/L Chloride Level 107 mmol/L Carbon Dioxide Level 16 mmol/L Anion Gap 21 Blood Urea Nitrogen 52 mg/dL Creatinine 5.1 mg/dL Estimated GFR (Cockcroft-Gault) 8.2 BUN/Creatinine Ratio 10 Glucose Level 87 mg/dL Calcium Level 7.1 mg/dL Magnesium Level 1.6 mg/dL Total Bilirubin 0.4 mg/dL Aspartate Amino Transf (AST/SGOT) 18 U/L Alanine Aminotransferase (ALT/SGPT) 12 U/L Alkaline Phosphatase 136 U/L Total Protein 7.3 g/dL Albumin 3.2 g/dL Albumin/Globulin Ratio 0.8 Hepatitis B Surface Antigen Nonreactive Hepatitis B Surface Antibody Nonreactive Current Medications Medications (Trade) Dose Ordered Sig/Senait Route PRN Reason Start Time Stop Time Status Last Admin Dose Admin Hydralazine HCl (Apresoline Inj) 20 mg 1X ONCE IVP 01/16/21 15:00 01/16/21 15:01 DC 01/16/21 16:00 Lidocaine HCl (Buffered Lidocaine 1%) 3 ml STK-MED ONCE .ROUTE 01/16/21 14:56 01/16/21 14:56 DC Lidocaine HCl (Buffered Lidocaine 1%) 3 ml 1X ONCE INJ 01/16/21 15:00 01/16/21 15:04 DC 01/16/21 15:00 EKG: EKG: [] Radiology/Procedures: Radiology/Procedures: [] Course & Med Decision Making: Course & Med Decision Making Pertinent Labs and Imaging studies reviewed. (See chart for details) Patient is a 75-year-old female with end-stage renal failure, hypertensive, she will need hemodialysis. Discussed with interventional radiologist Dr. Kashif Richard who agreed to place a temporary dialysis catheter today. Discussed with the hospitalist, Dr. Busch who agreed to admit the patient. Dragon Disclaimer: Dragon Disclaimer: This electronic medical record was generated, in whole or in part, using a voice recognition dictation system. Departure Departure Impression: Primary Impression: ESRD on hemodialysis Additional Impression: Hypertensive urgency Disposition: ADMITTED INPT THIS HOSP Admitting Physician: NOLAN (Dr. Busch) Condition: STABLE Referrals: AMALIA VERGARA MD (PCP) EDWARD CASSIDY DO Jan 16, 2021 14:40
[2021-01-16] MEDS ORDERED: LIDOCAINE WITH 8.4% SOD BICARB 3 ML DISP.SYRIN. ONE (14:56)
[2021-01-16] MEDS ORDERED: LIDOCAINE WITH 8.4% SOD BICARB 3 ML DISP.SYRIN. INJ ONE (15:00)
[2021-01-16] MEDS ORDERED: hydrALAZINE 20 MG/ML VIAL. IVP ONE (15:00)
--- NOTE | 2021-01-16 15:02 | PDOC1 ---
History and Physical Date of Admission Date of Admission DATE: 01/16/21 TIME: 15:00 Identification/Chief Complaint Chief Complaint Shortness of breath Source Source: Chart review, Patient History of Present Illness History of Present Illness Ms Taveras is a 75 yo F w/ PMHx High Cholesterol, Hypertension, Renal Failure, smoker, PUD who presents to ED c/o shortness of breath, weakness and was instructed by her river driver she is end-stage renal disease and needs urgent dialysis. She did not come to the hospital on 01/15/21 due to the weather. She recently had fistula placed on the right forearm last week. She had negative COVID 19 test on 01/12 and had labs showing eGFR < 15 and was instructed to immediately start dialysis based on this. Patient denies any cough or fever. Patient had COVID-19 infection last March. Patient denies any chest pain, no abdominal pain, no nausea vomiting. She is short of breath, notes decreased appetite. SBP in ED > 200mmHg improved slightly with IV hydralazine. Labs with WBC 6.8, Hb 9.2, Platelets 351, INR 1.2, aPTT 40, albumin 3.2, ca 7.1, Mg 1.6, Na 144, K 3.5, BUN 52, Cr 5.1, anion gap 21, glucose [address] Kashif Richard who agreed to place a temporary dialysis catheter today. Admitted for further care Past Medical History Cardiovascular: AFIB, HTN, Hyperlipidemia Pulmonary: No pertinent hx CENTRAL NERVOUS SYSTEM: Other GI: No pertinent hx Heme/Onc: No pertinent hx Hepatobiliary: No pertinent hx Psych: No pertinent hx Musculoskeletal: low back pain, Osteoarthritis Rheumatologic: No pertinent hx Infectious disease: No pertinent hx Renal/: No pertinent hx Endocrine: No pertinent hx Past Surgical History Past Surgical History: Pacemaker, Hysterectomy, Other (AV fistula right arm) Family History Family History: Coronary Artery Disease Social History Smoke: No ALCOHOL: occassional Drugs: None Current Medications Current Medications Current Medications Hydralazine HCl (Apresoline Inj) 20 mg 1X ONCE IVP ; Start 01/16/21 at 15:00; Stop 01/16/21 at 15:01 Lidocaine HCl (Buffered Lidocaine 1%) 3 ml STK-MED ONCE .ROUTE ; Start 01/16/21 at 14:56; Stop 01/16/21 at 14:56; Status DC Active Scripts Active Reported Eliquis (Apixaban) 5 Mg Tablet 5 Mg PO BID Labetalol Hcl 300 Mg Tablet 300 Mg PO BID Albuterol Sulfate Conc Neb Soln (Albuterol Sulfate) 2.5 Mg/0.5 Ml Vial.neb 1 Vial NEB Q4HRS Ventolin Hfa Inhaler (Albuterol Sulfate) 18 Gm Hfa.aer.ad 2 Puff INH QID Hydralazine Hcl 25 Mg Tablet 1 Tab PO TID Amlodipine Besylate 10 Mg Tablet 1 Tab PO DAILY Tramadol Hcl 50 Mg Tablet 50 Mg PO PRN TID PRN Lansoprazole 30 Mg Capsule.dr 30 Mg PO BID Allergies Allergies: Coded Allergies: codeine (Verified Adverse Reaction, Intermediate, GI Upset, 01/12/21) hydrocodone (Verified Adverse Reaction, Intermediate, GI Upset, 01/12/21) ROS General: YES: Fatigue, Malaise, Appetite; No: Chills, Night Sweats, Other PSYCHOLOGICAL ROS: YES: Anxiety; No: Behavioral Disorder, Concentration difficultie, Decreased libido, Depre ssion, Disorientation, Hallucinations, Hostility, Irritablity, Memory difficulties, Mood Swings, Obsessive thoughts, Physical abuse, Sexual abuse, Sleep disturbances, Suicidal ideation, Other Eyes: No Blurry vision, No Decreased vision, No Double vision, No Dry eyes, No Excessive tearing, No Eye Pain, No Itchy Eyes, No Loss of vision, No Photophobia, No Scotomata, No Uses contacts, No Uses glasses, No Other HEENT: No: Heacaches, Visual Changes, Hearing change, Nasal congestion, Nasal discharge, Oral lesions, Sinus pain, Sore Throat, Epistaxis, Sneezing, Snoring, Tinnitus, Vertigo, Vocal changes, Other ALLERGY AND IMMUNOLOGY: No: Hives, Insect Bite Sensitivity, Itchy/Watery Eyes, Nasal Congestion, Post Nasal Drip, Seasonal Allergies, Other Hematological and Lymphatic: No: Bleeding Problems, Blood Clots, Blood Transfusions, Brusing, Night Sweats, Pallor, Swollen Lymph Nodes, Other ENDOCRINE: No: Breast Changes, Galactorrhea, Hair Pattern Changes, Hot Flashes, Malaise/lethargy, Mood Swings, Palpitations, Polydipsia/polyuria, Skin Changes, Temperature Intolerance, Unexpected Weight Changes, Other Breast: No New/Changing Breast Lumps, No Nipple changes, No Nipple discharge, No Other Respiratory: YES: Shortness of breath, SOB with excertion; No: Cough, Hemoptysis, Orthopnea, Pleuritic Pain, Sputum Changes, Stridor, Tachypnea, Wheezing, Other Cardiovascular: No Chest Pain, No Palpitations, No Orthopnea, No Paroxysmal Noc. Dyspnea, No Edema, No Lt Headedness, No Other Gastrointestinal: Yes Nausea; No Vomiting, No Abdominal Pain, No Diarrhea, No Constipation, No Melena, No Hematochezia, No Other Genitourinary: No Dysuria, No Frequency, No Incontinence, No Hematuria, No Retention, No Discharge, No Urgency, No Pain, No Flank Pain, No Other, No , No , No , No , No , No , No Musculoskeletal: No Gait Disturbance, No Joint Pain, No Joint Stiffness, No Joint Swelling, No Muscle Pain, No Muscular Weakness, No Pain In:, No Swelling In:, No Other Neurological: No Behavorial Changes, No Bowel/Bladder ControlChng, No Confusion, No Dizziness, No Gait Disturbance, No Headaches, No Impaired Coord/balance, No Memory Loss, No Numbness/Tingling, No Seizures, No Speech Problems, No Tremors, No Visual Changes, No Weakness, No Other Skin: No Dry Skin, No Eczema, No Hair Changes, No Lumps, No Mole Changes, No Mottling, No Nail Changes, No Pruritus, No Rash, No Skin Lesion Changes, No Other, No Acne Physical Exam General: Alert, Oriented X3, Cooperative, mild distress HEENT: Atraumatic, PERRLA, EOMI, Mucous membr. moist/pink Lungs: Other (ibasilar crackles) Heart: S1S2, RRR, no thrills, no rubs Abdomen: Normal bowel sounds, Soft, No tenderness, No hepatosplenomegaly, No masses Rectal Exam: not examined Extremities: No clubbing, No cyanosis, No edema, Normal pulses, No tenderness/swelling, Other (right forearm fistula with slight bruit) Skin: No rashes, No breakdown, No significant lesion Neuro: Normal gait, Normal speech, Strength at 5/5 X4 ext, Normal tone, Sensation intact, Cranial nerves 3-12 NL, Reflexes 2+ Psych/Mental Status: Mental status NL, Mood NL Vitals Vitals Vital Signs Date Time Temp Pulse Resp B/P (MAP) Pulse Ox O2 Delivery O2 Flow Rate FiO2 01/16/21 14:25 98.2 79 18 210/88 (128) 98 Room Air 98.2 VTE Prophylaxis Ordered VTE Prophylaxis Devices: No VTE Pharmacological Prophylaxi: Yes Assessment/Plan Assessment/Plan A/P: Hypertensive emergency - IV hydralazine and urgent dialysis CKD4 - now ESRD requiring dialysis per nephrology. Temporary HD cath to place today. SSS - s/p PPM 07/31/2020 HTN - cont meds, IV hydralazine prn HLD - cont statin PAFIB - on eliquis, BB Anemia - likely of chronic renal dz, will monitor H/o COVID 19 - recovered. negative test within last 4 days FEN - Renal diet PPX - eliquis FULL CODE Dispo - inpatient at least 2 midnights Justifications for Admission Other Justification FRANCO DIETRICH MD Jan 16, 2021 15:02
[2021-01-16 15:29] LABS: BASO # 0.1 x10^3/uL (0.0-0.2); BASO % 1 % (0-3); EOS # 0.2 x10^3/uL (0.0-0.7); EOS % 3 % (0-3); HEMATOCRIT 27.5 % (36.0-47.0); HEMOGLOBIN 9.2 g/dL (12.0-15.5); LYMPH # 1.1 x10^3/uL (1.0-4.8); LYMPH % 16 % (24-48); MEAN CORPUSCULAR HEMOGLOBIN 30 pg (25-35); MEAN CORPUSCULAR HGB CONC 33 g/dL (31-37); MEAN CORPUSCULAR VOLUME 89 fL (79-100); MONO # 0.6 x10^3/uL (0.0-1.1); MONO % 10 % (0-9); NEUT # 4.8 x10^3/uL (1.8-7.7); NEUT % 70 % (31-73); PLATELET COUNT 351 x10^3/uL (140-400); RED BLOOD COUNT 3.08 x10^6/uL (3.50-5.40); RED CELL DISTRIBUTION WIDTH 14.3 % (11.5-14.5); WHITE BLOOD COUNT 6.8 x10^3/uL (4.0-11.0)
--- NOTE | 2021-01-16 15:35 | NUR ---
Temporary Dialysis Catheter placed in IR by Dr. Richard. VS stable, patient tolerated well. No sedation used. Site clean, dry, no bleeding noted. Sterile dressing in place. Patient taken back to ER room 9.
--- NOTE | 2021-01-16 15:38 | PDOC ---
BRIEF OPERATIVE NOTE Pre-Op Diagnosis ARF Post-Op Diagnosis same Procedure Performed Temp HD catheter Surgeon Jose Manuel EBL minimal Anesthesia Type: Conscious Sedation Specimens Obtained none Findings Right IJ temp HD catheter suitable for use Complications None KRYSTA LEMA MD Jan 16, 2021 15:38
[2021-01-16 15:42] LABS: PROTHROMBIN TIME PATIENT 14.3 SEC (11.7-14.0)
[2021-01-16 15:49] LABS: CALCIUM 7.1 mg/dL (8.5-10.1); CREATININE 5.1 mg/dL (0.6-1.0); GFR 8.2; POTASSIUM 3.5 mmol/L (3.5-5.1)
[2021-01-16 15:55] LABS: ALBUMIN 3.2 g/dL (3.4-5.0); ALBUMIN/GLOBULIN RATIO 0.8 (1.0-1.7); MAGNESIUM 1.6 mg/dL (1.8-2.4); TOTAL BILIRUBIN 0.4 mg/dL (0.2-1.0); TOTAL PROTEIN 7.3 g/dL (6.4-8.2)
--- NOTE | 2021-01-16 17:00 | RAD ---
Procedure: Temporary hemodialysis catheter placement under fluoroscopy Clinical Indication: Adult female requiring hemodialysis Sedation: Local anesthesia only Antibiotics: None Fluoro Time: 0.1 minutes, images: 1 Contrast: None Sterility: All elements of maximal sterile barrier technique including the use of a cap, mask, sterile gown, sterile gloves, large sterile sheet, appropriate hand hygiene, and 2% chlorhexidine for cutaneous antisepsis (or acceptable alternative antiseptic per current guidelines) were followed for this procedure. Consent: The procedure was explained in its entirety to the patient or the patients designated dental detail representative by a member of the treatment team, including a discussion of the risks, benefits and commonly accepted alternatives to the procedure, as well as the expected consequences of no therapy whatsoever. Discussion of the risks included, but was not limited to, those that are most frequent and those that are rare but possibly severe or life-threatening, as well as the possibility of unforeseen complications. Technique and Findings: Following informed consent, the patient was prepped and draped in the usual sterile fashion. Ultrasound interrogation of the right neck revealed patency and compressibility of the right internal jugular vein. A 21-gauge micropuncture needle was used to gain access to this vein after 1% Lidocaine was used to achieve local anesthesia. A hardcopy ultrasound image was recorded. The needle was exchanged over a wire for serial dilators followed by a 15 cm Schon temporary hemodialysis catheter which was deployed under fluoroscopic guidance such that the distal tip resided in the mid right atrium. The catheter flow rates were assessed manually and found to be excellent. The catheter was then flushed, packed with Heparin, capped, and sutured to the skin. Complications: No immediate Impression: 1. Ultrasound and fluoroscopic guided placement of a temporary hemodialysis catheter which exhibits excellent manual flow rates as described.
[2021-01-16 23:00] VITALS: BP 155/68
[2021-01-17] MEDS ORDERED: DOCUSATE SODIUM 100 MG CAPSULE. PO PRN (00:45)
[2021-01-17] MEDS ORDERED: ACETAMINOPHEN 325 MG TABLET. PO PRN (00:45)
[2021-01-17] MEDS ORDERED: ALBUTEROL SULFATE 2.5 MG/3 ML NEBU. NEB PRN (01:00)
[2021-01-17 03:00] VITALS: BP 175/70
[2021-01-17] MEDS ORDERED: NON FORMULARY ITEM (Albuterol Sulfate (Albuterol Sulfate Conc Neb Soln) 1 VIAL) NEB SCH (04:00)
[2021-01-17] MEDS: ANTI-COAG MONITOR BY PHARMACY. MC PRN (05:04)
[2021-01-17 07:00] VITALS: BP 126/69
[2021-01-17] MEDS: ALBUTEROL SULFATE 2.5 MG/3 ML NEBU. NEB SCH ×4 (08:03→19:42)
[2021-01-17 08:25] LABS: ALBUMIN 2.7 g/dL (3.4-5.0); CALCIUM 7.5 mg/dL (8.5-10.1); CREATININE 3.3 mg/dL (0.6-1.0); GFR 13.6; PHOSPHORUS 3.4 mg/dL (2.6-4.7); POTASSIUM 3.9 mmol/L (3.5-5.1)
[2021-01-17] MEDS ORDERED: NON FORMULARY ITEM (Albuterol Sulfate (Ventolin Hfa Inhaler) 2 PUFF) INH SCH (09:00)
--- NOTE | 2021-01-17 09:29 | PDOC ---
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 Temporary HD cath placed HTN - cont meds, IV hydralazine prn HLD - cont statin PAFIB - on eliquis, has pacemaker Anemia - of renal disease, H/o COVID 19 - long haul symptoms since march, History of Present Illness History of Present Illness nausea this am did well with HD last night, has another sched today about noon poor appetite, food hasnt tasted good since covid - almost 10 mos Vitals Vitals Vital Signs Date Time Temp Pulse Resp B/P (MAP) Pulse Ox O2 Delivery O2 Flow Rate FiO2 01/17/21 08:05 91 Room Air 01/17/21 07:00 99.0 82 18 126/69 (88) 99.0 Physical Exam General: Alert, Oriented X3, Cooperative, mild distress Abdomen: Normal bowel sounds, Soft, No tenderness, No hepatosplenomegaly, No masses Extremities: No clubbing, No cyanosis, No edema, Normal pulses, No tenderness/swelling, Other (right forearm fistula with slight bruit) Skin: No rashes, No breakdown, No significant lesion Labs LABS Laboratory Tests Test 01/16/21 15:10 01/17/21 07:10 White Blood Count 6.8 x10^3/uL (4.0-11.0) Red Blood Count 3.08 x10^6/uL (3.50-5.40) Hemoglobin 9.2 g/dL (12.0-15.5) Hematocrit 27.5 % (36.0-47.0) Mean Corpuscular Volume 89 fL (79-100) Mean Corpuscular Hemoglobin 30 pg (25-35) Mean Corpuscular Hemoglobin Concent 33 g/dL (31-37) Red Cell Distribution Width 14.3 % (11.5-14.5) Platelet Count 351 x10^3/uL (140-400) Neutrophils (%) (Auto) 70 % (31-73) Lymphocytes (%) (Auto) 16 % (24-48) Monocytes (%) (Auto) 10 % (0-9) Eosinophils (%) (Auto) 3 % (0-3) Basophils (%) (Auto) 1 % (0-3) Neutrophils # (Auto) 4.8 x10^3/uL (1.8-7.7) Lymphocytes # (Auto) 1.1 x10^3/uL (1.0-4.8) Monocytes # (Auto) 0.6 x10^3/uL (0.0-1.1) Eosinophils # (Auto) 0.2 x10^3/uL (0.0-0.7) Basophils # (Auto) 0.1 x10^3/uL (0.0-0.2) Prothrombin Time 14.3 SEC (11.7-14.0) Prothromb Time International Ratio 1.2 (0.8-1.1) Activated Partial Thromboplast Time 40 SEC (24-38) Sodium Level 144 mmol/L (136-145) 145 mmol/L (136-145) Potassium Level 3.5 mmol/L (3.5-5.1) 3.9 mmol/L (3.5-5.1) Chloride Level 107 mmol/L (98-107) 105 mmol/L (98-107) Carbon Dioxide Level 16 mmol/L (21-32) 30 mmol/L (21-32) Anion Gap 21 (6-14) 10 (6-14) Blood Urea Nitrogen 52 mg/dL (7-20) 25 mg/dL (7-20) Creatinine 5.1 mg/dL (0.6-1.0) 3.3 mg/dL (0.6-1.0) Estimated GFR (Cockcroft-Gault) 8.2 13.6 BUN/Creatinine Ratio 10 (6-20) Glucose Level 87 mg/dL (70-99) 93 mg/dL (70-99) Calcium Level 7.1 mg/dL (8.5-10.1) 7.5 mg/dL (8.5-10.1) Magnesium Level 1.6 mg/dL (1.8-2.4) Total Bilirubin 0.4 mg/dL (0.2-1.0) Aspartate Amino Transf (AST/SGOT) 18 U/L (15-37) Alanine Aminotransferase (ALT/SGPT) 12 U/L (14-59) Alkaline Phosphatase 136 U/L (46-116) Total Protein 7.3 g/dL (6.4-8.2) Albumin 3.2 g/dL (3.4-5.0) 2.7 g/dL (3.4-5.0) Albumin/Globulin Ratio 0.8 (1.0-1.7) Hepatitis B Surface Antigen Nonreactive (Nonreactive) Hepatitis B Surface Antibody Nonreactive Phosphorus Level 3.4 mg/dL (2.6-4.7) Assessment and Plan Assessmemt and Plan Problems Medical Problems: (1) ESRD on hemodialysis Status: Acute (2) Hypertensive urgency Status: Acute Comment Review of Relevant I have reviewed the following items tiana (where applicable) has been applied. Labs Laboratory Tests Test 01/16/21 15:10 01/17/21 07:10 White Blood Count 6.8 x10^3/uL (4.0-11.0) Red Blood Count 3.08 x10^6/uL (3.50-5.40) Hemoglobin 9.2 g/dL (12.0-15.5) Hematocrit 27.5 % (36.0-47.0) Mean Corpuscular Volume 89 fL (79-100) Mean Corpuscular Hemoglobin 30 pg (25-35) Mean Corpuscular Hemoglobin Concent 33 g/dL (31-37) Red Cell Distribution Width 14.3 % (11.5-14.5) Platelet Count 351 x10^3/uL (140-400) Neutrophils (%) (Auto) 70 % (31-73) Lymphocytes (%) (Auto) 16 % (24-48) Monocytes (%) (Auto) 10 % (0-9) Eosinophils (%) (Auto) 3 % (0-3) Basophils (%) (Auto) 1 % (0-3) Neutrophils # (Auto) 4.8 x10^3/uL (1.8-7.7) Lymphocytes # (Auto) 1.1 x10^3/uL (1.0-4.8) Monocytes # (Auto) 0.6 x10^3/uL (0.0-1.1) Eosinophils # (Auto) 0.2 x10^3/uL (0.0-0.7) Basophils # (Auto) 0.1 x10^3/uL (0.0-0.2) Prothrombin Time 14.3 SEC (11.7-14.0) Prothromb Time International Ratio 1.2 (0.8-1.1) Activated Partial Thromboplast Time 40 SEC (24-38) Sodium Level 144 mmol/L (136-145) 145 mmol/L (136-145) Potassium Level 3.5 mmol/L (3.5-5.1) 3.9 mmol/L (3.5-5.1) Chloride Level 107 mmol/L (98-107) 105 mmol/L (98-107) Carbon Dioxide Level 16 mmol/L (21-32) 30 mmol/L (21-32) Anion Gap 21 (6-14) 10 (6-14) Blood Urea Nitrogen 52 mg/dL (7-20) 25 mg/dL (7-20) Creatinine 5.1 mg/dL (0.6-1.0) 3.3 mg/dL (0.6-1.0) Estimated GFR (Cockcroft-Gault) 8.2 13.6 BUN/Creatinine Ratio 10 (6-20) Glucose Level 87 mg/dL (70-99) 93 mg/dL (70-99) Calcium Level 7.1 mg/dL (8.5-10.1) 7.5 mg/dL (8.5-10.1) Magnesium Level 1.6 mg/dL (1.8-2.4) Total Bilirubin 0.4 mg/dL (0.2-1.0) Aspartate Amino Transf (AST/SGOT) 18 U/L (15-37) Alanine Aminotransferase (ALT/SGPT) 12 U/L (14-59) Alkaline Phosphatase 136 U/L (46-116) Total Protein 7.3 g/dL (6.4-8.2) Albumin 3.2 g/dL (3.4-5.0) 2.7 g/dL (3.4-5.0) Albumin/Globulin Ratio 0.8 (1.0-1.7) Hepatitis B Surface Antigen Nonreactive (Nonreactive) Hepatitis B Surface Antibody Nonreactive Phosphorus Level 3.4 mg/dL (2.6-4.7) Laboratory Tests Test 01/16/21 15:10 01/17/21 07:10 White Blood Count 6.8 x10^3/uL (4.0-11.0) Red Blood Count 3.08 x10^6/uL (3.50-5.40) Hemoglobin 9.2 g/dL (12.0-15.5) Hematocrit 27.5 % (36.0-47.0) Mean Corpuscular Volume 89 fL (79-100) Mean Corpuscular Hemoglobin 30 pg (25-35) Mean Corpuscular Hemoglobin Concent 33 g/dL (31-37) Red Cell Distribution Width 14.3 % (11.5-14.5) Platelet Count 351 x10^3/uL (140-400) Neutrophils (%) (Auto) 70 % (31-73) Lymphocytes (%) (Auto) 16 % (24-48) Monocytes (%) (Auto) 10 % (0-9) Eosinophils (%) (Auto) 3 % (0-3) Basophils (%) (Auto) 1 % (0-3) Neutrophils # (Auto) 4.8 x10^3/uL (1.8-7.7) Lymphocytes # (Auto) 1.1 x10^3/uL (1.0-4.8) Monocytes # (Auto) 0.6 x10^3/uL (0.0-1.1) Eosinophils # (Auto) 0.2 x10^3/uL (0.0-0.7) Basophils # (Auto) 0.1 x10^3/uL (0.0-0.2) Prothrombin Time 14.3 SEC (11.7-14.0) Prothromb Time International Ratio 1.2 (0.8-1.1) Activated Partial Thromboplast Time 40 SEC (24-38) Sodium Level 144 mmol/L (136-145) 145 mmol/L (136-145) Potassium Level 3.5 mmol/L (3.5-5.1) 3.9 mmol/L (3.5-5.1) Chloride Level 107 mmol/L (98-107) 105 mmol/L (98-107) Carbon Dioxide Level 16 mmol/L (21-32) 30 mmol/L (21-32) Anion Gap 21 (6-14) 10 (6-14) Blood Urea Nitrogen 52 mg/dL (7-20) 25 mg/dL (7-20) Creatinine 5.1 mg/dL (0.6-1.0) 3.3 mg/dL (0.6-1.0) Estimated GFR (Cockcroft-Gault) 8.2 13.6 BUN/Creatinine Ratio 10 (6-20) Glucose Level 87 mg/dL (70-99) 93 mg/dL (70-99) Calcium Level 7.1 mg/dL (8.5-10.1) 7.5 mg/dL (8.5-10.1) Magnesium Level 1.6 mg/dL (1.8-2.4) Total Bilirubin 0.4 mg/dL (0.2-1.0) Aspartate Amino Transf (AST/SGOT) 18 U/L (15-37) Alanine Aminotransferase (ALT/SGPT) 12 U/L (14-59) Alkaline Phosphatase 136 U/L (46-116) Total Protein 7.3 g/dL (6.4-8.2) Albumin 3.2 g/dL (3.4-5.0) 2.7 g/dL (3.4-5.0) Albumin/Globulin Ratio 0.8 (1.0-1.7) Hepatitis B Surface Antigen Nonreactive (Nonreactive) Hepatitis B Surface Antibody Nonreactive Phosphorus Level 3.4 mg/dL (2.6-4.7) Medications Current Medications Hydralazine HCl (Apresoline Inj) 20 mg 1X ONCE IVP Last administered on 01/16/21at 16:00; Start 01/16/21 at 15:00; Stop 01/16/21 at 15:01; Status DC Lidocaine HCl (Buffered Lidocaine 1%) 3 ml STK-MED ONCE .ROUTE ; Start 01/16/21 at 14:56; Stop 01/16/21 at 14:56; Status DC Lidocaine HCl (Buffered Lidocaine 1%) 3 ml 1X ONCE INJ Last administered on 01/16/21at 15:00; Start 01/16/21 at 15:00; Stop 01/16/21 at 15:04; Status DC Amlodipine Besylate (Norvasc) 10 mg DAILY PO ; Start 01/17/21 at 09:00 Apixaban (Eliquis) 5 mg BID PO ; Start 01/17/21 at 09:00 Hydralazine HCl (Apresoline) 25 mg TID PO ; Start 01/17/21 at 09:00 Tramadol HCl (Ultram) 50 mg PRN TID PRN PO MODERATE PAIN 4-6; Start 01/17/21 at 00:45 Non-Formulary Medication (Albuterol Sulfate (Albuterol Sulfate Conc Neb Soln)) 1 vial Q4HRS NEB ; Start 01/17/21 at 04:00; Status UNV Non-Formulary Medication (Albuterol Sulfate (Ventolin Hfa Inhaler)) 2 puff QID INH ; Start 01/17/21 at 09:00; Status UNV Labetalol HCl (Trandate) 300 mg BID PO ; Start 01/17/21 at 09:00 Pantoprazole Sodium (Protonix) 40 mg DAILYAC PO ; Start 01/17/21 at 07:30 Psyllium Hydrophilic Mucilloid (Metamucil Fiber Packet) 1 pkt QHS PO ; Start 01/17/21 at 21:00 Olanzapine (ZyPREXA ZYDIS) 5 mg PRN BID PRN PO ANXIETY / AGITATION; Start 01/17/21 at 00:45 Acetaminophen (Tylenol) 650 mg PRN Q4HRS PRN PO TEMP OVER 100.4F OR MILD PAIN; Start 01/17/21 at 00:45 Docusate Sodium (Colace) 100 mg PRN BID PRN PO HARD STOOLS; Start 01/17/21 at 00:45 Albuterol Sulfate (Ventolin Neb Soln) 2.5 mg RTQID NEB Last administered on 01/17/21at 08:03; Start 01/17/21 at 08:00 Info (Anti-Coagulation Monitoring By Pharmacy) 1 each PRN DAILY PRN MC SEE COMMENTS Last administered on 01/17/21at 05:04; Start 01/17/21 at 01:00 Albuterol Sulfate (Ventolin Neb Soln) 2.5 mg PRN Q4HRS PRN NEB SHORTNESS OF BREATH; Start 01/17/21 at 01:00 Active Scripts Active Reported Eliquis (Apixaban) 5 Mg Tablet 5 Mg PO BID Labetalol Hcl 300 Mg Tablet 300 Mg PO BID Albuterol Sulfate Conc Neb Soln (Albuterol Sulfate) 2.5 Mg/0.5 Ml Vial.neb 1 Vial NEB Q4HRS Ventolin Hfa Inhaler (Albuterol Sulfate) 18 Gm Hfa.aer.ad 2 Puff INH QID Hydralazine Hcl 25 Mg Tablet 1 Tab PO TID Amlodipine Besylate 10 Mg Tablet 1 Tab PO DAILY Tramadol Hcl 50 Mg Tablet 50 Mg PO PRN TID PRN Lansoprazole 30 Mg Capsule.dr 30 Mg PO BID Vitals/I & O Vital Sign - Last 24 Hours 01/16/21 01/16/21 01/16/21 01/16/21 14:25 14:28 14:58 16:00 Temp 98.2 98.2 Pulse 79 78 67 72 Resp 18 B/P (MAP) 210/88 (128) 210/88 (128) 203/86 (125) 217/88 Pulse Ox 98 98 O2 Delivery Room Air Room Air 01/16/21 01/16/21 01/16/21 01/17/21 16:21 22:00 23:00 03:00 Temp 99.3 99.2 99.3 99.2 Pulse 80 87 82 Resp 20 20 B/P (MAP) 184/80 (114) 155/68 (97) 175/70 (105) Pulse Ox 97 91 93 O2 Delivery Room Air Room Air Room Air Room Air 01/17/21 01/17/21 07:00 08:05 Temp 99.0 99.0 Pulse 82 Resp 18 B/P (MAP) 126/69 (88) Pulse Ox 91 91 O2 Delivery Room Air Room Air Intake and Output 01/16/21 01/16/21 01/17/21 15:00 23:00 07:00 Intake Total 400 ml Balance 400 ml Justicifation of Admission Dx: Justifications for Admission: Justification of Admission Dx: Yes BLOSSOM BOLAÑOS MD Jan 17, 2021 09:29
--- NOTE | 2021-01-17 10:37 | NUR ---
SW following for discharge planning. Spoke with RN and reviewed chart. JEWELS met with pt today. Pt from home with her son and his family. Pt up ad-jose l. Pt on room air, oral medications, ADA diet. Temporary dialysis catheter placed yesterday, 01/16. JEWELS following for possible new dialysis setup. SW following. Addendum: 01/17/21 at 1427 by PAULETTE DONIS JEWELS informed by nephrology that pt will need new dialysis setup. Pt stated no preference in provider. Pt choice of vendor form completed. SW working on intake form for new [facility] admissions request. JEWELS requested COVID swab and additional labs and chest xray needed for setup.
[2021-01-17] MEDS: LABETALOL HCL 100 MG TABLET. PO SCH ×2 (10:38→20:55)
[2021-01-17] MEDS: hydrALAZINE 25 MG TABLET PO SCH ×3 (10:38→20:55)
[2021-01-17] MEDS: APIXABAN 5 MG TABLET. PO SCH ×2 (10:38→20:55)
[2021-01-17] MEDS: PANTOPRAZOLE 40 MG TABLET.DR. PO SCH (10:39)
[2021-01-17] MEDS: amLODIPine BESYLATE 10 MG TABLET PO SCH (10:39)
[2021-01-17 11:00] VITALS: BP 138/77
--- NOTE | 2021-01-17 12:14 | PDOC2 ---
CONSULT Date of Consult Date of Consult DATE: 01/17/21 TIME: 12:14 Reason for Consult Reason for Consult: Worsening renal function CKD stage 4/5 Source Source: Chart review, Patient History of Present Illness Reason for Visit: Ms Taveras is a 75 yo CF w/ PMHx Hypertension, CKD smoker, COVID-19 infection March 2020 . PUD who presents to ED c/o shortness of breath, weakness and was instructed our [facility] for need of urgent dialysis. She did not come to the hospital on 01/15/21 due to the weather. She recently had fistula placed on the right forearm last week. She had negative COVID 19 test on 01/12 . She reported to our office that she is not feeling very well and has also noticed altered taste. Patient denies any cough or fever. Patient denies any chest pain, no abdominal pain, no nausea vomiting. c/o short of breath poa , decreased appetite. SBP in ED > 200mmHg improved slightly with IV hydralazine. Temp HDC placed yesterday and pt was dialyzed urgently ( 1 st treatment) . Currently denies any complaints . Past Medical History Cardiovascular: AFIB, HTN, Hyperlipidemia Pulmonary: No pertinent hx CENTRAL NERVOUS SYSTEM: Other GI: No pertinent hx Heme/Onc: No pertinent hx Hepatobiliary: No pertinent hx Psych: No pertinent hx Musculoskeletal: low back pain, Osteoarthritis Rheumatologic: No pertinent hx Infectious disease: No pertinent hx Renal/: No pertinent hx Endocrine: No pertinent hx Past Surgical History Past Surgical History: Pacemaker, Hysterectomy, Other (AV fistula right arm) Family History Family History: Coronary Artery Disease Social History No ALCOHOL: occassional Drugs: None Lives: with Family Domestic Violence: Neg Current Problem List Problem List Problems Medical Problems: (1) ESRD on hemodialysis Status: Acute (2) Hypertensive urgency Status: Acute Current Medications Current Medications Current Medications Hydralazine HCl (Apresoline Inj) 20 mg 1X ONCE IVP Last administered on 01/16/21at 16:00; Start 01/16/21 at 15:00; Stop 01/16/21 at 15:01; Status DC Lidocaine HCl (Buffered Lidocaine 1%) 3 ml STK-MED ONCE .ROUTE ; Start 01/16/21 at 14:56; Stop 01/16/21 at 14:56; Status DC Lidocaine HCl (Buffered Lidocaine 1%) 3 ml 1X ONCE INJ Last administered on 01/16/21at 15:00; Start 01/16/21 at 15:00; Stop 01/16/21 at 15:04; Status DC Amlodipine Besylate (Norvasc) 10 mg DAILY PO Last administered on 01/17/21at 10:39; Start 01/17/21 at 09:00 Apixaban (Eliquis) 5 mg BID PO Last administered on 01/17/21at 10:38; Start 01/17/21 at 09:00 Hydralazine HCl (Apresoline) 25 mg TID PO Last administered on 01/17/21at 10:38; Start 01/17/21 at 09:00 Tramadol HCl (Ultram) 50 mg PRN TID PRN PO MODERATE PAIN 4-6; Start 01/17/21 at 00:45 Non-Formulary Medication (Albuterol Sulfate (Albuterol Sulfate Conc Neb Soln)) 1 vial Q4HRS NEB ; Start 01/17/21 at 04:00; Status UNV Non-Formulary Medication (Albuterol Sulfate (Ventolin Hfa Inhaler)) 2 puff QID INH ; Start 01/17/21 at 09:00; Status UNV Labetalol HCl (Trandate) 300 mg BID PO Last administered on 01/17/21at 10:38; Start 01/17/21 at 09:00 Pantoprazole Sodium (Protonix) 40 mg DAILYAC PO Last administered on 01/17/21at 10:39; Start 01/17/21 at 07:30 Psyllium Hydrophilic Mucilloid (Metamucil Fiber Packet) 1 pkt QHS PO ; Start 01/17/21 at 21:00 Olanzapine (ZyPREXA ZYDIS) 5 mg PRN BID PRN PO ANXIETY / AGITATION; Start 01/17/21 at 00:45 Acetaminophen (Tylenol) 650 mg PRN Q4HRS PRN PO TEMP OVER 100.4F OR MILD PAIN; Start 01/17/21 at 00:45 Docusate Sodium (Colace) 100 mg PRN BID PRN PO HARD STOOLS; Start 01/17/21 at 00:45 Albuterol Sulfate (Ventolin Neb Soln) 2.5 mg RTQID NEB Last administered on 01/17/21at 11:36; Start 01/17/21 at 08:00 Info (Anti-Coagulation Monitoring By Pharmacy) 1 each PRN DAILY PRN MC SEE COMMENTS Last administered on 01/17/21at 05:04; Start 01/17/21 at 01:00 Albuterol Sulfate (Ventolin Neb Soln) 2.5 mg PRN Q4HRS PRN NEB SHORTNESS OF BREATH; Start 01/17/21 at 01:00 Active Scripts Active Reported Eliquis (Apixaban) 5 Mg Tablet 5 Mg PO BID Labetalol Hcl 300 Mg Tablet 300 Mg PO BID Albuterol Sulfate Conc Neb Soln (Albuterol Sulfate) 2.5 Mg/0.5 Ml Vial.neb 1 Vial NEB Q4HRS Ventolin Hfa Inhaler (Albuterol Sulfate) 18 Gm Hfa.aer.ad 2 Puff INH QID Hydralazine Hcl 25 Mg Tablet 1 Tab PO TID Amlodipine Besylate 10 Mg Tablet 1 Tab PO DAILY Tramadol Hcl 50 Mg Tablet 50 Mg PO PRN TID PRN Lansoprazole 30 Mg Capsule.dr 30 Mg PO BID Allergies Allergies: Coded Allergies: codeine (Verified Adverse Reaction, Intermediate, GI Upset, 01/12/21) hydrocodone (Verified Adverse Reaction, Intermediate, GI Upset, 01/12/21) ROS Review of System As per HPI, rest of the ROS is negative Physical Exam Physical Exam General: No distress HEENT: Atraumatic, PERRLA, EOMI, Mucous membr. moist/pink Neck supple Lungs: CTA, Non labored Heart: S1S2, RRR, no rub Abdomen: Normal bowel sounds, Soft, No tenderness, No hepatosplenomegaly, No masses Extremities: No clubbing, No cyanosis, No edema, right forearm fistula + (new) Skin: No rashes, Neuro: grossly normal, no Asterexis Psych/Mental Status: Mental status NL, Mood NL No Bruno, No CVA or SP tenderness Vital Signs Vital Signs Date Time Temp Pulse Resp B/P (MAP) Pulse Ox O2 Delivery O2 Flow Rate FiO2 01/17/21 11:36 93 Room Air 01/17/21 11:00 98.7 78 16 138/77 (97) 98.7 Assessment & Plan New Onset ESRD - Started on HD 01/16 , 2 nd treatment today. Discussed treatment plan with Donte SARAVIA Chair time - dw SW , Access Temp HDC , will need Tunnelled HDC Hypertensive emergency -POA s/p IV hydralazine . BP improved. Continue home antihypertensives CKD 4 /5 - now ESRD SSS - s/p PPM 07/31/2020 PAFIB - on eliquis, BB. IR probably will require to Hold Eliquis prior to Tunnelled HDC placement. Defer to cardiology H/o COVID 19 March 2020, hospitalized at [facility] Laboratory Tests Test 01/16/21 15:10 01/17/21 07:10 White Blood Count 6.8 x10^3/uL (4.0-11.0) Red Blood Count 3.08 x10^6/uL (3.50-5.40) Hemoglobin 9.2 g/dL (12.0-15.5) Hematocrit 27.5 % (36.0-47.0) Mean Corpuscular Volume 89 fL (79-100) Mean Corpuscular Hemoglobin 30 pg (25-35) Mean Corpuscular Hemoglobin Concent 33 g/dL (31-37) Red Cell Distribution Width 14.3 % (11.5-14.5) Platelet Count 351 x10^3/uL (140-400) Neutrophils (%) (Auto) 70 % (31-73) Lymphocytes (%) (Auto) 16 % (24-48) Monocytes (%) (Auto) 10 % (0-9) Eosinophils (%) (Auto) 3 % (0-3) Basophils (%) (Auto) 1 % (0-3) Neutrophils # (Auto) 4.8 x10^3/uL (1.8-7.7) Lymphocytes # (Auto) 1.1 x10^3/uL (1.0-4.8) Monocytes # (Auto) 0.6 x10^3/uL (0.0-1.1) Eosinophils # (Auto) 0.2 x10^3/uL (0.0-0.7) Basophils # (Auto) 0.1 x10^3/uL (0.0-0.2) Prothrombin Time 14.3 SEC (11.7-14.0) Prothromb Time International Ratio 1.2 (0.8-1.1) Activated Partial Thromboplast Time 40 SEC (24-38) Sodium Level 144 mmol/L (136-145) 145 mmol/L (136-145) Potassium Level 3.5 mmol/L (3.5-5.1) 3.9 mmol/L (3.5-5.1) Chloride Level 107 mmol/L (98-107) 105 mmol/L (98-107) Carbon Dioxide Level 16 mmol/L (21-32) 30 mmol/L (21-32) Anion Gap 21 (6-14) 10 (6-14) Blood Urea Nitrogen 52 mg/dL (7-20) 25 mg/dL (7-20) Creatinine 5.1 mg/dL (0.6-1.0) 3.3 mg/dL (0.6-1.0) Estimated GFR (Cockcroft-Gault) 8.2 13.6 BUN/Creatinine Ratio 10 (6-20) Glucose Level 87 mg/dL (70-99) 93 mg/dL (70-99) Calcium Level 7.1 mg/dL (8.5-10.1) 7.5 mg/dL (8.5-10.1) Magnesium Level 1.6 mg/dL (1.8-2.4) Total Bilirubin 0.4 mg/dL (0.2-1.0) Aspartate Amino Transf (AST/SGOT) 18 U/L (15-37) Alanine Aminotransferase (ALT/SGPT) 12 U/L (14-59) Alkaline Phosphatase 136 U/L (46-116) Total Protein 7.3 g/dL (6.4-8.2) Albumin 3.2 g/dL (3.4-5.0) 2.7 g/dL (3.4-5.0) Albumin/Globulin Ratio 0.8 (1.0-1.7) Hepatitis B Surface Antigen Nonreactive (Nonreactive) Hepatitis B Surface Antibody Nonreactive Phosphorus Level 3.4 mg/dL (2.6-4.7) Laboratory Tests Test 01/16/21 15:10 01/17/21 07:10 White Blood Count 6.8 x10^3/uL (4.0-11.0) Red Blood Count 3.08 x10^6/uL (3.50-5.40) Hemoglobin 9.2 g/dL (12.0-15.5) Hematocrit 27.5 % (36.0-47.0) Mean Corpuscular Volume 89 fL (79-100) Mean Corpuscular Hemoglobin 30 pg (25-35) Mean Corpuscular Hemoglobin Concent 33 g/dL (31-37) Red Cell Distribution Width 14.3 % (11.5-14.5) Platelet Count 351 x10^3/uL (140-400) Neutrophils (%) (Auto) 70 % (31-73) Lymphocytes (%) (Auto) 16 % (24-48) Monocytes (%) (Auto) 10 % (0-9) Eosinophils (%) (Auto) 3 % (0-3) Basophils (%) (Auto) 1 % (0-3) Neutrophils # (Auto) 4.8 x10^3/uL (1.8-7.7) Lymphocytes # (Auto) 1.1 x10^3/uL (1.0-4.8) Monocytes # (Auto) 0.6 x10^3/uL (0.0-1.1) Eosinophils # (Auto) 0.2 x10^3/uL (0.0-0.7) Basophils # (Auto) 0.1 x10^3/uL (0.0-0.2) Prothrombin Time 14.3 SEC (11.7-14.0) Prothromb Time International Ratio 1.2 (0.8-1.1) Activated Partial Thromboplast Time 40 SEC (24-38) Sodium Level 144 mmol/L (136-145) 145 mmol/L (136-145) Potassium Level 3.5 mmol/L (3.5-5.1) 3.9 mmol/L (3.5-5.1) Chloride Level 107 mmol/L (98-107) 105 mmol/L (98-107) Carbon Dioxide Level 16 mmol/L (21-32) 30 mmol/L (21-32) Anion Gap 21 (6-14) 10 (6-14) Blood Urea Nitrogen 52 mg/dL (7-20) 25 mg/dL (7-20) Creatinine 5.1 mg/dL (0.6-1.0) 3.3 mg/dL (0.6-1.0) Estimated GFR (Cockcroft-Gault) 8.2 13.6 BUN/Creatinine Ratio 10 (6-20) Glucose Level 87 mg/dL (70-99) 93 mg/dL (70-99) Calcium Level 7.1 mg/dL (8.5-10.1) 7.5 mg/dL (8.5-10.1) Magnesium Level 1.6 mg/dL (1.8-2.4) Total Bilirubin 0.4 mg/dL (0.2-1.0) Aspartate Amino Transf (AST/SGOT) 18 U/L (15-37) Alanine Aminotransferase (ALT/SGPT) 12 U/L (14-59) Alkaline Phosphatase 136 U/L (46-116) Total Protein 7.3 g/dL (6.4-8.2) Albumin 3.2 g/dL (3.4-5.0) 2.7 g/dL (3.4-5.0) Albumin/Globulin Ratio 0.8 (1.0-1.7) Hepatitis B Surface Antigen Nonreactive (Nonreactive) Hepatitis B Surface Antibody Nonreactive Phosphorus Level 3.4 mg/dL (2.6-4.7) Review All relevant outside records, renal labs, imaging studies, telemetry/EKG's were reviewed. GERMÁN AMARO MD Jan 17, 2021 12:14
[2021-01-17] MEDS ORDERED: DIALYSIS PATIENT. MC PRN (14:15)
[2021-01-17] MEDS ORDERED: IV NORMAL SALINE 1000ML BAG 1,000 ML IV PRN ×2 (14:15)
--- NOTE | 2021-01-17 14:31 | NUR ---
1400 hydralazine held d/t patient going to dialysis
[2021-01-17 15:00] VITALS: BP 119/55
[2021-01-17 19:00] VITALS: BP 149/60
[2021-01-17] MEDS: PSYLLIUM HUSK (SUGAR FREE) 1 PKT PACKET PO SCH (20:57)
[2021-01-17 23:00] VITALS: BP 163/70
[2021-01-18] VITALS (7 sets, daily range): BP systolic 84–191; BP diastolic 37–86
[2021-01-18] MEDS: ALBUTEROL SULFATE 2.5 MG/3 ML NEBU. NEB SCH ×4 (07:31→20:06)
[2021-01-18 08:58] LABS: BASO # 0.1 x10^3/uL (0.0-0.2); BASO % 1 % (0-3); EOS # 0.2 x10^3/uL (0.0-0.7); EOS % 4 % (0-3); HEMATOCRIT 27.5 % (36.0-47.0); LYMPH # 1.2 x10^3/uL (1.0-4.8); LYMPH % 22 % (24-48); MEAN CORPUSCULAR HEMOGLOBIN 29 pg (25-35); MEAN CORPUSCULAR HGB CONC 33 g/dL (31-37); MEAN CORPUSCULAR VOLUME 89 fL (79-100); MONO # 0.9 x10^3/uL (0.0-1.1); MONO % 18 % (0-9); NEUT # 2.9 x10^3/uL (1.8-7.7); NEUT % 55 % (31-73); PLATELET COUNT 340 x10^3/uL (140-400); RED BLOOD COUNT 3.07 x10^6/uL (3.50-5.40); RED CELL DISTRIBUTION WIDTH 13.9 % (11.5-14.5); WHITE BLOOD COUNT 5.3 x10^3/uL (4.0-11.0)
[2021-01-18 09:22] LABS: ALBUMIN 2.7 g/dL (3.4-5.0); CALCIUM 7.8 mg/dL (8.5-10.1); CREATININE 2.5 mg/dL (0.6-1.0); GFR 18.7; PHOSPHORUS 3.5 mg/dL (2.6-4.7); POTASSIUM 3.4 mmol/L (3.5-5.1)
[2021-01-18] MEDS ORDERED: LIDOCAINE 2%/EPI 1:100,000 20 ML VIAL. ONE (09:59)
[2021-01-18] MEDS ORDERED: ceFAZolin SODIUM IV Push 1 GM VIAL. IVP ONE ×2 (10:49→11:15)
[2021-01-18] MEDS ORDERED: MIDAZOLAM HCL/PF 2 MG/2 ML VIAL. ONE (10:49)
[2021-01-18] MEDS ORDERED: fentaNYL PF VIAL 100 MCG/2 ML VIAL ONE (10:49)
--- NOTE | 2021-01-18 11:11 | PDOC ---
MODERATE SEDATION ASSESSMENT RISKS/ALTERNATIVES Risks/Alternatives Risks and alternatives of this type of sedation and procedure discussed with: RISK/ALTERNATIVES: Patient H & P ON CHART H & P H & P on chart and reviewed for co-morbid conditions and appropriate labs. H&P ON CHART: Yes STATUS PREG STATUS ASSESSED: Yes MEDS/ALLERGIES REVIEWED Meds/Allergies Reviewed Medications and Allergies including time and route of recently administered narcotics and sedatives. MEDS/ALLERGIES REVIEWED: Yes ASA RATING ASA RATING: II AIRWAY ASSESSMENT Airway Assessment Airway patency, oral function limitations, presence of caps, crowns, dentures, partials, and ability to extend neck assessed. AIRWAY ASSESSMENT: Yes MALLAMPATI SCORE MALLAMPATI SCORE: II PRE-SEDATION ASSESSMENT PRE-SEDATION ASSESSMENT: Yes KRYSTA LEMA MD Jan 18, 2021 11:11
--- NOTE | 2021-01-18 11:12 | PDOC ---
BRIEF OPERATIVE NOTE Pre-Op Diagnosis CRF Post-Op Diagnosis same Procedure Performed Temp to tunnelled HD catheter exchange Surgeon Jose Manuel EBL minimal Anesthesia Type: Conscious Sedation Specimens Obtained none Findings 23cm Palindrome HD catheter suitable for use. KRYSTA LEMA MD Jan 18, 2021 11:12
[2021-01-18] MEDS ORDERED: fentaNYL PF VIAL 100 MCG/2 ML VIAL IV ONE (11:15)
[2021-01-18] MEDS ORDERED: LIDOCAINE 2%/EPI 1:100,000 20 ML VIAL. IJ ONE (11:15)
[2021-01-18] MEDS ORDERED: MIDAZOLAM HCL/PF 2 MG/2 ML VIAL. IV ONE (11:15)
--- NOTE | 2021-01-18 11:20 | RAD ---
Procedure: Conversion of a temporary to tunneled hemodialysis catheter with fluoroscopic guidance Clinical Indication: Adult female requiring long-term hemodialysis via catheter Sedation: Conscious sedation was administered for 18 minutes. The patient was monitored by a qualified independent observer throughout the time of sedation. Please refer to the medical record for exact doses of medications utilized to achieve moderate sedation. Antibiotics: Antibiotic was administered intravenously within 1 hour of the procedure start time. Fluoro Time: 0.2 minutes, images: 1 Sterility: All elements of maximal sterile barrier technique including the use of a cap, mask, sterile gown, sterile gloves, large sterile sheet, appropriate hand hygiene, and 2% chlorhexidine for cutaneous antisepsis (or acceptable alternative antiseptic per current guidelines) were followed for this procedure. Consent: The procedure was explained in its entirety to the patient or the patients designated herbicide service sales representative by a member of the treatment team, including a discussion of the risks, benefits and commonly accepted alternatives to the procedure, as well as the expected consequences of no therapy whatsoever. Discussion of the risks included, but was not limited to, those that are most frequent and those that are rare but possibly severe or life-threatening, as well as the possibility of unforeseen complications. Technique and Findings: Following informed consent, the patient was prepped and draped in usual sterile fashion. 1% lidocaine was used to achieve local anesthesia over the right anterior chest wall. A small dermatotomy was made. A 23 cm palindrome tunneled hemodialysis catheter was then tunneled subcutaneously towards the existing neck dermatotomy. The existing temporary catheter was then removed over a wire and a large peel-away sheath was deployed over the wire and used to deploy the new tunneled hemodialysis catheter under fluoroscopic guidance such that the distal tip resided in the proximal right atrium. Manual flow rates were assessed and found to be excellent. The new catheter was flushed, capped, and sutured to the skin. A single 4-0 Vicryl suture was applied over the neck dermatotomy. Complications: No immediate Impression: 1. Exchange of a temporary for tunneled hemodialysis catheter as described. The new catheter exhibits excellent manual flow rates and is suitable for use.
--- NOTE | 2021-01-18 11:21 | PDOC ---
DATE OF SERVICE DATE: 01/18/21 TIME: 11:21 SUBJECTIVE ROS stable, OBJECTIVE Vital Signs Vital Signs Date Time Temp Pulse Resp B/P (MAP) Pulse Ox O2 Delivery O2 Flow Rate FiO2 01/18/21 11:02 15 98 Room Air 2.0 01/18/21 11:00 98.4 71 176/73 (107) 98.4 I & 0 Intake and Output 01/18/21 07:00 Intake Total 200 ml Output Total 400 ml Balance -200 ml Intake Oral 200 ml Output Urine Total 400 ml PHYSICAL EXAM Physical Exam GEN: NAD HEEN OM most NECK Supple LUNG decreased at bases non labored CV S1S2, No Rub ABD Soft, NT EXT No Edema , No cyanosis NEURO AXOX3, grossly normal No eason, No CVA or SP tenderness DIAGNOSIS/ASSESSMENT Assessment & Plan New Onset ESRD - Started on HD 01/16 , schedule for tomorrow Awaiting OP Chair time , Access Tunnelled HDC 01/18 Hypertensive emergency -POA s/p IV hydralazine . BP improved. home antihypertensives SSS - s/p PPM 07/31/2020 PAFIB - on eliquis, BB. IR probably will require to Hold Eliquis prior to Tunnelled HDC placement. Defer to cardiology H/o COVID 19 March 2020, hospitalized at COMMENT/RELEVANT DATA Meds Current Medications Medications (Trade) Dose Ordered Sig/Senait Start Time Stop Time Status Last Admin Dose Admin Acetaminophen (Tylenol) 650 mg PRN Q4HRS PRN 01/17/21 00:45 Albuterol Sulfate (Ventolin Neb Soln) 2.5 mg PRN Q4HRS PRN 01/17/21 01:00 Amlodipine Besylate (Norvasc) 10 mg DAILY 01/17/21 09:00 01/17/21 10:39 10 MG Apixaban (Eliquis) 5 mg BID 01/17/21 09:00 01/17/21 20:55 5 MG Cefazolin Sodium (Ancef) 1 gm 1X ONCE 01/18/21 11:15 01/18/21 11:16 DC 01/18/21 10:56 1 GM Docusate Sodium (Colace) 100 mg PRN BID PRN 01/17/21 00:45 Fentanyl Citrate (Fentanyl 2ml Vial) 50 mcg 1X ONCE 01/18/21 11:15 01/18/21 11:16 DC 01/18/21 11:02 50 MCG Hydralazine HCl (Apresoline Inj) 20 mg 1X ONCE 01/16/21 15:00 01/16/21 15:01 DC 01/16/21 16:00 20 MG Hydralazine HCl (Apresoline) 25 mg TID 01/17/21 09:00 01/17/21 20:55 25 MG Info (Anti-Coagulation Monitoring By Pharmacy) 1 each PRN DAILY PRN 01/17/21 01:00 01/17/21 05:04 1 EACH Info (PHARMACY MONITORING -- do not chart) 1 each PRN DAILY PRN 01/17/21 14:15 Labetalol HCl (Trandate) 300 mg BID 01/17/21 09:00 01/17/21 20:55 300 MG Lidocaine HCl (Buffered Lidocaine 1%) 3 ml 1X ONCE 01/16/21 15:00 01/16/21 15:04 DC 01/16/21 15:00 4 ML Lidocaine/ Epinephrine (LIDOCAINE 2%-EPI 1:100,000 multi-dose) 11 ml 1X ONCE 01/18/21 11:15 01/18/21 11:16 DC 01/18/21 11:05 11 ML Midazolam HCl (Versed) 1 mg 1X ONCE 01/18/21 11:15 01/18/21 11:16 DC 01/18/21 11:02 1 MG Non-Formulary Medication (Albuterol Sulfate (Albuterol Sulfate Conc Neb Soln)) 1 vial Q4HRS 01/17/21 04:00 UNV Non-Formulary Medication (Albuterol Sulfate (Ventolin Hfa Inhaler)) 2 puff QID 01/17/21 09:00 UNV Olanzapine (ZyPREXA ZYDIS) 5 mg PRN BID PRN 01/17/21 00:45 Pantoprazole Sodium (Protonix) 40 mg DAILYAC 01/17/21 07:30 01/17/21 10:39 40 MG Psyllium Hydrophilic Mucilloid (Metamucil Fiber Packet) 1 pkt QHS 01/17/21 21:00 Sodium Chloride 1,000 ml @ 400 mls/hr Q2H30M PRN 01/17/21 14:15 01/18/21 02:14 DC Tramadol HCl (Ultram) 50 mg PRN TID PRN 01/17/21 00:45 Lab Laboratory Tests Test 01/17/21 19:40 01/18/21 07:50 SARS-CoV-2 Antigen (Rapid) Negative (NEGATIVE) White Blood Count 5.3 x10^3/uL (4.0-11.0) Red Blood Count 3.07 x10^6/uL (3.50-5.40) Hemoglobin 9.0 g/dL (12.0-15.5) Hematocrit 27.5 % (36.0-47.0) Mean Corpuscular Volume 89 fL (79-100) Mean Corpuscular Hemoglobin 29 pg (25-35) Mean Corpuscular Hemoglobin Concent 33 g/dL (31-37) Red Cell Distribution Width 13.9 % (11.5-14.5) Platelet Count 340 x10^3/uL (140-400) Neutrophils (%) (Auto) 55 % (31-73) Lymphocytes (%) (Auto) 22 % (24-48) Monocytes (%) (Auto) 18 % (0-9) Eosinophils (%) (Auto) 4 % (0-3) Basophils (%) (Auto) 1 % (0-3) Neutrophils # (Auto) 2.9 x10^3/uL (1.8-7.7) Lymphocytes # (Auto) 1.2 x10^3/uL (1.0-4.8) Monocytes # (Auto) 0.9 x10^3/uL (0.0-1.1) Eosinophils # (Auto) 0.2 x10^3/uL (0.0-0.7) Basophils # (Auto) 0.1 x10^3/uL (0.0-0.2) Sodium Level 142 mmol/L (136-145) Potassium Level 3.4 mmol/L (3.5-5.1) Chloride Level 103 mmol/L (98-107) Carbon Dioxide Level 30 mmol/L (21-32) Anion Gap 9 (6-14) Blood Urea Nitrogen 14 mg/dL (7-20) Creatinine 2.5 mg/dL (0.6-1.0) Estimated GFR (Cockcroft-Gault) 18.7 Glucose Level 100 mg/dL (70-99) Calcium Level 7.8 mg/dL (8.5-10.1) Phosphorus Level 3.5 mg/dL (2.6-4.7) Albumin 2.7 g/dL (3.4-5.0) Results All relevant outside records, renal labs, imaging studies, telemetry/EKG's were reviewed. Justicifation of Admission Dx: Justifications for Admission: Justification of Admission Dx: Yes GERMÁN AMARO MD Jan 18, 2021 11:21
[2021-01-18] MEDS: LABETALOL HCL 100 MG TABLET. PO SCH ×2 (11:41→20:29)
[2021-01-18] MEDS: PANTOPRAZOLE 40 MG TABLET.DR. PO SCH (11:41)
[2021-01-18] MEDS: hydrALAZINE 25 MG TABLET PO SCH ×3 (11:42→20:29)
[2021-01-18] MEDS: amLODIPine BESYLATE 10 MG TABLET PO SCH (11:42)
[2021-01-18] MEDS: APIXABAN 5 MG TABLET. PO SCH ×2 (11:43→20:29)
--- NOTE | 2021-01-18 14:28 | NUR ---
SW following for discharge planning. Reviewed chart and discussed with RN. JEWELS faxed completed new dialysis setup request form as well as clinicals and COVID/HEP results to [facility] Admissions. Pt is COVID negative. SW requested chest xray again. Pt to complete dialysis tomorrow and possibly discharge home tomorrow with family. Pt will be setup at [facility] on [facility] between 2:30pm and 4pm. Final chair time will be provided by [facility] Admissions once chest xray is provided. SW following.
--- NOTE | 2021-01-18 14:28 | PDOC ---
PROGRESS NOTES Date of Service: DATE: 01/18/21 TIME: 14:27 Chief Complaint Chief Complaint Hypertensive emergency - IV hydralazine and urgent dialysis on admit, repeating today CKD4 or 5 - with acute renal failure, now likely ESRD requiring dialysis per nephrology. Temporary HD cath placed HTN - cont meds, IV hydralazine prn HLD - cont statin PAFIB - on eliquis, has pacemaker Anemia - of renal disease, H/o COVID 19 - long haul symptoms since march, History of Present Illness History of Present Illness out this AM has had new line placed, plan DC with outpatient HD may need to HD today and tomorrow, renal following poor appetite, food hasnt tasted good since covid - almost 10 mos Vitals Vitals Vital Signs Date Time Temp Pulse Resp B/P (MAP) Pulse Ox O2 Delivery O2 Flow Rate FiO2 01/18/21 13:32 94 Room Air 01/18/21 11:42 72 168/68 01/18/21 11:23 14 2.0 01/18/21 11:00 98.4 98.4 Physical Exam General: Alert, Oriented X3, Cooperative, mild distress Abdomen: Normal bowel sounds, Soft, No tenderness, No hepatosplenomegaly, No masses Extremities: No clubbing, No cyanosis, No edema, Normal pulses, No tend erness/swelling, Other (right forearm fistula with slight bruit) Skin: No rashes, No breakdown, No significant lesion Labs LABS Laboratory Tests Test 01/17/21 19:40 01/18/21 07:50 SARS-CoV-2 Antigen (Rapid) Negative (NEGATIVE) White Blood Count 5.3 x10^3/uL (4.0-11.0) Red Blood Count 3.07 x10^6/uL (3.50-5.40) Hemoglobin 9.0 g/dL (12.0-15.5) Hematocrit 27.5 % (36.0-47.0) Mean Corpuscular Volume 89 fL (79-100) Mean Corpuscular Hemoglobin 29 pg (25-35) Mean Corpuscular Hemoglobin Concent 33 g/dL (31-37) Red Cell Distribution Width 13.9 % (11.5-14.5) Platelet Count 340 x10^3/uL (140-400) Neutrophils (%) (Auto) 55 % (31-73) Lymphocytes (%) (Auto) 22 % (24-48) Monocytes (%) (Auto) 18 % (0-9) Eosinophils (%) (Auto) 4 % (0-3) Basophils (%) (Auto) 1 % (0-3) Neutrophils # (Auto) 2.9 x10^3/uL (1.8-7.7) Lymphocytes # (Auto) 1.2 x10^3/uL (1.0-4.8) Monocytes # (Auto) 0.9 x10^3/uL (0.0-1.1) Eosinophils # (Auto) 0.2 x10^3/uL (0.0-0.7) Basophils # (Auto) 0.1 x10^3/uL (0.0-0.2) Sodium Level 142 mmol/L (136-145) Potassium Level 3.4 mmol/L (3.5-5.1) Chloride Level 103 mmol/L (98-107) Carbon Dioxide Level 30 mmol/L (21-32) Anion Gap 9 (6-14) Blood Urea Nitrogen 14 mg/dL (7-20) Creatinine 2.5 mg/dL (0.6-1.0) Estimated GFR (Cockcroft-Gault) 18.7 Glucose Level 100 mg/dL (70-99) Calcium Level 7.8 mg/dL (8.5-10.1) Phosphorus Level 3.5 mg/dL (2.6-4.7) Albumin 2.7 g/dL (3.4-5.0) Assessment and Plan Assessmemt and Plan Problems Medical Problems: (1) ESRD on hemodialysis Status: Acute (2) Hypertensive urgency Status: Acute Comment Review of Relevant I have reviewed the following items tiana (where applicable) has been applied. Labs Laboratory Tests Test 01/16/21 15:10 01/16/21 17:30 01/17/21 07:10 01/17/21 19:40 White Blood Count 6.8 x10^3/uL (4.0-11.0) Red Blood Count 3.08 x10^6/uL (3.50-5.40) Hemoglobin 9.2 g/dL (12.0-15.5) Hematocrit 27.5 % (36.0-47.0) Mean Corpuscular Volume 89 fL (79-100) Mean Corpuscular Hemoglobin 30 pg (25-35) Mean Corpuscular Hemoglobin Concent 33 g/dL (31-37) Red Cell Distribution Width 14.3 % (11.5-14.5) Platelet Count 351 x10^3/uL (140-400) Neutrophils (%) (Auto) 70 % (31-73) Lymphocytes (%) (Auto) 16 % (24-48) Monocytes (%) (Auto) 10 % (0-9) Eosinophils (%) (Auto) 3 % (0-3) Basophils (%) (Auto) 1 % (0-3) Neutrophils # (Auto) 4.8 x10^3/uL (1.8-7.7) Lymphocytes # (Auto) 1.1 x10^3/uL (1.0-4.8) Monocytes # (Auto) 0.6 x10^3/uL (0.0-1.1) Eosinophils # (Auto) 0.2 x10^3/uL (0.0-0.7) Basophils # (Auto) 0.1 x10^3/uL (0.0-0.2) Prothrombin Time 14.3 SEC (11.7-14.0) Prothromb Time International Ratio 1.2 (0.8-1.1) Activated Partial Thromboplast Time 40 SEC (24-38) Sodium Level 144 mmol/L (136-145) 145 mmol/L (136-145) Potassium Level 3.5 mmol/L (3.5-5.1) 3.9 mmol/L (3.5-5.1) Chloride Level 107 mmol/L (98-107) 105 mmol/L (98-107) Carbon Dioxide Level 16 mmol/L (21-32) 30 mmol/L (21-32) Anion Gap 21 (6-14) 10 (6-14) Blood Urea Nitrogen 52 mg/dL (7-20) 25 mg/dL (7-20) Creatinine 5.1 mg/dL (0.6-1.0) 3.3 mg/dL (0.6-1.0) Estimated GFR (Cockcroft-Gault) 8.2 13.6 BUN/Creatinine Ratio 10 (6-20) Glucose Level 87 mg/dL (70-99) 93 mg/dL (70-99) Calcium Level 7.1 mg/dL (8.5-10.1) 7.5 mg/dL (8.5-10.1) Magnesium Level 1.6 mg/dL (1.8-2.4) Total Bilirubin 0.4 mg/dL (0.2-1.0) Aspartate Amino Transf (AST/SGOT) 18 U/L (15-37) Alanine Aminotransferase (ALT/SGPT) 12 U/L (14-59) Alkaline Phosphatase 136 U/L (46-116) Total Protein 7.3 g/dL (6.4-8.2) Albumin 3.2 g/dL (3.4-5.0) 2.7 g/dL (3.4-5.0) Albumin/Globulin Ratio 0.8 (1.0-1.7) Hepatitis B Surface Antigen Nonreactive (Nonreactive) Hepatitis B Surface Antibody Nonreactive Hepatitis B Surface Antibody, Quant 4.4 mIU/mL (Immunity>9.9) Phosphorus Level 3.4 mg/dL (2.6-4.7) Hepatitis B Core Total Antibody Nonreactive (Nonreactive) SARS-CoV-2 Antigen (Rapid) Negative (NEGATIVE) Test 01/18/21 07:50 White Blood Count 5.3 x10^3/uL (4.0-11.0) Red Blood Count 3.07 x10^6/uL (3.50-5.40) Hemoglobin 9.0 g/dL (12.0-15.5) Hematocrit 27.5 % (36.0-47.0) Mean Corpuscular Volume 89 fL (79-100) Mean Corpuscular Hemoglobin 29 pg (25-35) Mean Corpuscular Hemoglobin Concent 33 g/dL (31-37) Red Cell Distribution Width 13.9 % (11.5-14.5) Platelet Count 340 x10^3/uL (140-400) Neutrophils (%) (Auto) 55 % (31-73) Lymphocytes (%) (Auto) 22 % (24-48) Monocytes (%) (Auto) 18 % (0-9) Eosinophils (%) (Auto) 4 % (0-3) Basophils (%) (Auto) 1 % (0-3) Neutrophils # (Auto) 2.9 x10^3/uL (1.8-7.7) Lymphocytes # (Auto) 1.2 x10^3/uL (1.0-4.8) Monocytes # (Auto) 0.9 x10^3/uL (0.0-1.1) Eosinophils # (Auto) 0.2 x10^3/uL (0.0-0.7) Basophils # (Auto) 0.1 x10^3/uL (0.0-0.2) Sodium Level 142 mmol/L (136-145) Potassium Level 3.4 mmol/L (3.5-5.1) Chloride Level 103 mmol/L (98-107) Carbon Dioxide Level 30 mmol/L (21-32) Anion Gap 9 (6-14) Blood Urea Nitrogen 14 mg/dL (7-20) Creatinine 2.5 mg/dL (0.6-1.0) Estimated GFR (Cockcroft-Gault) 18.7 Glucose Level 100 mg/dL (70-99) Calcium Level 7.8 mg/dL (8.5-10.1) Phosphorus Level 3.5 mg/dL (2.6-4.7) Albumin 2.7 g/dL (3.4-5.0) Laboratory Tests Test 01/17/21 19:40 01/18/21 07:50 SARS-CoV-2 Antigen (Rapid) Negative (NEGATIVE) White Blood Count 5.3 x10^3/uL (4.0-11.0) Red Blood Count 3.07 x10^6/uL (3.50-5.40) Hemoglobin 9.0 g/dL (12.0-15.5) Hematocrit 27.5 % (36.0-47.0) Mean Corpuscular Volume 89 fL (79-100) Mean Corpuscular Hemoglobin 29 pg (25-35) Mean Corpuscular Hemoglobin Concent 33 g/dL (31-37) Red Cell Distribution Width 13.9 % (11.5-14.5) Platelet Count 340 x10^3/uL (140-400) Neutrophils (%) (Auto) 55 % (31-73) Lymphocytes (%) (Auto) 22 % (24-48) Monocytes (%) (Auto) 18 % (0-9) Eosinophils (%) (Auto) 4 % (0-3) Basophils (%) (Auto) 1 % (0-3) Neutrophils # (Auto) 2.9 x10^3/uL (1.8-7.7) Lymphocytes # (Auto) 1.2 x10^3/uL (1.0-4.8) Monocytes # (Auto) 0.9 x10^3/uL (0.0-1.1) Eosinophils # (Auto) 0.2 x10^3/uL (0.0-0.7) Basophils # (Auto) 0.1 x10^3/uL (0.0-0.2) Sodium Level 142 mmol/L (136-145) Potassium Level 3.4 mmol/L (3.5-5.1) Chloride Level 103 mmol/L (98-107) Carbon Dioxide Level 30 mmol/L (21-32) Anion Gap 9 (6-14) Blood Urea Nitrogen 14 mg/dL (7-20) Creatinine 2.5 mg/dL (0.6-1.0) Estimated GFR (Cockcroft-Gault) 18.7 Glucose Level 100 mg/dL (70-99) Calcium Level 7.8 mg/dL (8.5-10.1) Phosphorus Level 3.5 mg/dL (2.6-4.7) Albumin 2.7 g/dL (3.4-5.0) Medications Current Medications Hydralazine HCl (Apresoline Inj) 20 mg 1X ONCE IVP Last administered on 01/16/21at 16:00; Start 01/16/21 at 15:00; Stop 01/16/21 at 15:01; Status DC Lidocaine HCl (Buffered Lidocaine 1%) 3 ml STSADAR 3D-MED ONCE .ROUTE ; Start 01/16/21 at 14:56; Stop 01/16/21 at 14:56; Status DC Lidocaine HCl (Buffered Lidocaine 1%) 3 ml 1X ONCE INJ Last administered on 01/16/21at 15:00; Start 01/16/21 at 15:00; Stop 01/16/21 at 15:04; Status DC Amlodipine Besylate (Norvasc) 10 mg DAILY PO Last administered on 01/18/21at 11:42; Start 01/17/21 at 09:00 Apixaban (Eliquis) 5 mg BID PO Last administered on 01/18/21at 11:43; Start 01/17/21 at 09:00 Hydralazine HCl (Apresoline) 25 mg TID PO Last administered on 01/18/21at 11:42; Start 01/17/21 at 09:00 Tramadol HCl (Ultram) 50 mg PRN TID PRN PO MODERATE PAIN 4-6; Start 01/17/21 at 00:45 Non-Formulary Medication (Albuterol Sulfate (Albuterol Sulfate Conc Neb Soln)) 1 vial Q4HRS NEB ; Start 01/17/21 at 04:00; Status UNV Non-Formulary Medication (Albuterol Sulfate (Ventolin Hfa Inhaler)) 2 puff QID INH ; Start 01/17/21 at 09:00; Status UNV Labetalol HCl (Trandate) 300 mg BID PO Last administered on 01/18/21at 11:41; Start 01/17/21 at 09:00 Pantoprazole Sodium (Protonix) 40 mg DAILYAC PO Last administered on 01/18/21at 11:41; Start 01/17/21 at 07:30 Psyllium Hydrophilic Mucilloid (Metamucil Fiber Packet) 1 pkt QHS PO ; Start 01/17/21 at 21:00 Olanzapine (ZyPREXA ZYDIS) 5 mg PRN BID PRN PO ANXIETY / AGITATION; Start 01/17/21 at 00:45 Acetaminophen (Tylenol) 650 mg PRN Q4HRS PRN PO TEMP OVER 100.4F OR MILD PAIN; Start 01/17/21 at 00:45 Docusate Sodium (Colace) 100 mg PRN BID PRN PO HARD STOOLS; Start 01/17/21 at 00:45 Albuterol Sulfate (Ventolin Neb Soln) 2.5 mg RTQID NEB Last administered on 01/18/21at 13:31; Start 01/17/21 at 08:00 Info (Anti-Coagulation Monitoring By Pharmacy) 1 each PRN DAILY PRN MC SEE COMMENTS Last administered on 01/17/21at 05:04; Start 01/17/21 at 01:00 Albuterol Sulfate (Ventolin Neb Soln) 2.5 mg PRN Q4HRS PRN NEB SHORTNESS OF BREATH; Start 01/17/21 at 01:00 Sodium Chloride 1,000 ml @ 1,000 mls/hr Q1H PRN IV hypotension; Start 01/17/21 at 14:15; Stop 01/17/21 at 20:14; Status DC Sodium Chloride 1,000 ml @ 400 mls/hr Q2H30M PRN IV PATENCY; Start 01/17/21 at 14:15; Stop 01/18/21 at 02:14; Status DC Info (PHARMACY MONITORING -- do not chart) 1 each PRN DAILY PRN MC SEE COMMENTS; Start 01/17/21 at 14:15 Lidocaine/ Epinephrine (LIDOCAINE 2%-EPI 1:100,000 multi-dose) 20 ml STK-MED ONCE .ROUTE ; Start 01/18/21 at 09:59; Stop 01/18/21 at 09:59; Status DC Cefazolin Sodium (Ancef) 1 gm STK-MED ONCE IVP ; Start 01/18/21 at 10:49; Stop 01/18/21 at 10:50; Status DC Midazolam HCl (Versed) 2 mg STK-MED ONCE .ROUTE ; Start 01/18/21 at 10:49; Stop 01/18/21 at 10:50; Status DC Fentanyl Citrate (Fentanyl 2ml Vial) 100 mcg STK-MED ONCE .ROUTE ; Start 01/18/21 at 10:49; Stop 01/18/21 at 10:50; Status DC Midazolam HCl (Versed) 1 mg 1X ONCE IV Last administered on 01/18/21at 11:02; Start 01/18/21 at 11:15; Stop 01/18/21 at 11:16; Status DC Fentanyl Citrate (Fentanyl 2ml Vial) 50 mcg 1X ONCE IV Last administered on 01/18/21at 11:02; Start 01/18/21 at 11:15; Stop 01/18/21 at 11:16; Status DC Lidocaine/ Epinephrine (LIDOCAINE 2%-EPI 1:100,000 multi-dose) 11 ml 1X ONCE IJ Last administered on 01/18/21at 11:05; Start 01/18/21 at 11:15; Stop 01/18/21 at 11:16; Status DC Cefazolin Sodium (Ancef) 1 gm 1X ONCE IVP Last administered on 01/18/21at 10:56; Start 01/18/21 at 11:15; Stop 01/18/21 at 11:16; Status DC Active Scripts Active Reported Eliquis (Apixaban) 5 Mg Tablet 5 Mg PO BID Labetalol Hcl 300 Mg Tablet 300 Mg PO BID Albuterol Sulfate Conc Neb Soln (Albuterol Sulfate) 2.5 Mg/0.5 Ml Vial.neb 1 Vial NEB Q4HRS Ventolin Hfa Inhaler (Albuterol Sulfate) 18 Gm Hfa.aer.ad 2 Puff INH QID Hydralazine Hcl 25 Mg Tablet 1 Tab PO TID Amlodipine Besylate 10 Mg Tablet 1 Tab PO DAILY Tramadol Hcl 50 Mg Tablet 50 Mg PO PRN TID PRN Lansoprazole 30 Mg Capsule.dr 30 Mg PO BID Vitals/I & O Vital Sign - Last 24 Hours 01/17/21 01/17/21 01/17/21 01/17/21 15:00 19:00 19:43 20:00 Temp 98.5 98.5 98.5 98.5 Pulse 79 85 Resp 16 18 B/P (MAP) 119/55 (76) 149/60 (89) Pulse Ox 91 94 98 O2 Delivery Room Air Room Air Room Air Room Air 01/17/21 01/17/21 01/17/21 01/18/21 20:55 20:55 23:00 03:00 Temp 98.5 98.0 98.5 98.0 Pulse 85 85 77 69 Resp 18 18 B/P (MAP) 149/60 149/60 163/70 (101) 150/63 (92) Pulse Ox 94 92 O2 Delivery Room Air Room Air 01/18/21 01/18/21 01/18/21 01/18/21 07:00 07:33 08:00 11:00 Temp 97.9 98.4 97.9 98.4 Pulse 73 71 Resp 18 18 B/P (MAP) 141/69 (93) 176/73 (107) Pulse Ox 91 93 93 O2 Delivery Room Air Room Air Room Air Room Air 01/18/21 01/18/21 01/18/21 01/18/21 11:02 11:23 11:41 11:42 Pulse 66 77 72 Resp 15 14 B/P (MAP) 168/68 168/68 Pulse Ox 98 98 O2 Delivery Room Air Nasal Cannula O2 Flow Rate 2.0 2.0 01/18/21 01/18/21 11:42 13:32 Pulse 72 B/P (MAP) 168/68 Pulse Ox 94 O2 Delivery Room Air Intake and Output 01/17/21 01/17/21 01/18/21 15:00 23:00 07:00 Intake Total 200 ml 0 ml Output Total 400 ml Balance 200 ml -400 ml Nutrition Consultation Dietary Evaluation: Recommendations by RD: Dietary education by RD Comments: REC continue Renal diet and encourage po intake, offer snacks / supplements from unit prn Handout provided to pt on low K+, low Phos diet RD available x [phone] should questions arise before d/c Expected Outcomes/Goals: improved po intake to have all questions answered about renal diet before d/c Malnutrition Findings: Food and Nutrition Intake (Mod: <75% est energy req 7days Body Fat Depletion (Non Severe: Mild Depletion Weight Status: Underweight Justicifation of Admission Dx: Justifications for Admission: Justification of Admission Dx: Yes BLOSSOM BOLAÑOS MD Jan 18, 2021 14:28
--- NOTE | 2021-01-18 15:53 | RAD ---
XR CHEST 1V History: Reason: post tunnelled cath placement / Spl. Instructions: / History: Comparison: August 01, 2020 Findings: Right IJ central line with tip projecting over the cavoatrial junction. Mild interstitial thickening. Small left pleural effusion. Normal heart size. No pneumothorax. Left-sided pacemaker, unchanged. Gl enohumeral DJD. Impression: 1. Interval placement right IJ central line. No pneumothorax. 2. Mild diffuse interstitial thickening, may represent early pulmonary edema. 3. Small left pleural effusion. Electronically signed by: Pipo Joseph DO (01/18/2021 3:51 PM) [facility]
[2021-01-18] MEDS: traMADol 50 MG TABLET PO PRN (20:29)
[2021-01-18] MEDS: PSYLLIUM HUSK (SUGAR FREE) 1 PKT PACKET PO SCH ×2 (20:30→20:37)
[2021-01-19 03:00] VITALS: BP 155/64
[2021-01-19] MEDS: PANTOPRAZOLE 40 MG TABLET.DR. PO SCH ×3 (06:15→13:32)
[2021-01-19] MEDS: traMADol 50 MG TABLET PO PRN (06:20)
[2021-01-19 07:00] VITALS: BP 167/76
[2021-01-19] MEDS: ALBUTEROL SULFATE 2.5 MG/3 ML NEBU. NEB SCH ×2 (07:13→11:15)
[2021-01-19] MEDS ORDERED: 0.9 % SODIUM CHLORIDE 10 ML DISP.SYRIN. IV PRN ×2 (08:00)
[2021-01-19] MEDS ORDERED: diphenhydrAMINE 50 MG/ML VIAL IV PRN ×2 (08:00)
[2021-01-19] MEDS ORDERED: DIALYSIS PATIENT. MC PRN (08:00)
[2021-01-19] MEDS ORDERED: LIDOCAINE 1% PF 2 ML VIAL. INJ PRN (08:00)
[2021-01-19] MEDS ORDERED: ACETAMINOPHEN 500 MG TABLET PO PRN (08:00)
[2021-01-19] MEDS ORDERED: IV NORMAL SALINE 1000ML BAG 1,000 ML IV PRN ×2 (08:00)
[2021-01-19] MEDS ORDERED: ALBUMIN HUMAN 25% 200 ML IV PRN (08:00)
[2021-01-19 08:06] LABS: ALBUMIN 2.6 g/dL (3.4-5.0); CALCIUM 7.6 mg/dL (8.5-10.1); CREATININE 3.8 mg/dL (0.6-1.0); GFR 11.5; PHOSPHORUS 3.7 mg/dL (2.6-4.7); POTASSIUM 3.4 mmol/L (3.5-5.1)
[2021-01-19] MEDS: APIXABAN 5 MG TABLET. PO SCH (08:33)
[2021-01-19] MEDS: ANTI-COAG MONITOR BY PHARMACY. MC PRN (11:43)
--- NOTE | 2021-01-19 11:49 | PDOC ---
Renal-Progress Notes Subjective Notes Notes FEELING BETTER History of Present Illness Hx of present illness STABLE Vitals Vitals Vital Signs Date Time Temp Pulse Resp B/P (MAP) Pulse Ox O2 Delivery O2 Flow Rate FiO2 01/19/21 11:18 95 Room Air 01/19/21 07:00 98.5 76 18 167/76 (106) 98.5 01/18/21 11:23 2.0 Weight Weight [ ] I.O. Intake and Output Intake and Output 01/19/21 06:59 Intake Total 220 ml Balance 220 ml Intake Oral 220 ml # Voids 3 Labs Labs Laboratory Tests Test 01/19/21 06:10 Sodium Level 141 mmol/L (136-145) Potassium Level 3.4 mmol/L (3.5-5.1) Chloride Level 103 mmol/L (98-107) Carbon Dioxide Level 28 mmol/L (21-32) Anion Gap 10 (6-14) Blood Urea Nitrogen 24 mg/dL (7-20) Creatinine 3.8 mg/dL (0.6-1.0) Estimated GFR (Cockcroft-Gault) 11.5 Glucose Level 104 mg/dL (70-99) Calcium Level 7.6 mg/dL (8.5-10.1) Phosphorus Level 3.7 mg/dL (2.6-4.7) Albumin 2.6 g/dL (3.4-5.0) Review of Systems Constitutional: yes: weakness, alert, oriented Ears/Nose/Throat: Yes: no symptom reported Eyes: Yes: no symptom reported Pulmonary: Yes no symptom reported Cardiovascular: Yes no symptom reported Gastrointestional: Yes: no symptom reported Genitourinary: Yes: no symptom reported Skin: Yes no symptom reported Psychiatric/Neurological: Yes: no symptom reported Endocrine: Yes: no symptom reported Physical Exam General Appearance: no apparent distress, febrile Respiratory: bilateral CTA Heart: S1S2 Abdomen: soft, bowel sounds present Extremities: pulses present, other (R ARM AVF WITH BRUIT) Neurology: alert, oriented Assessment Assessment IMP NEW ESRD ANEMIA HTN - LABILE ANEMIA S/P R ARM BB AVF PLAN HD TODAY UF TO [facility] TO CONTINUE PT TO HAVE OP HD SET UP OK TO D/C ONCE SET UP WILL FOLLOW KEERTHI MATUTE MD Jan 19, 2021 11:49
[2021-01-19] MEDS ORDERED: FERR-36 PO (12:19)
[2021-01-19] MEDS ORDERED: FOLIC/VIT B COMP W-C (RENAL) TABLET. PO SCH (13:00)
[2021-01-19] MEDS: amLODIPine BESYLATE 10 MG TABLET PO SCH (13:32)
[2021-01-19 13:33] VITALS: BP 167/76
[2021-01-19] MEDS: LABETALOL HCL 100 MG TABLET. PO SCH (13:33)
[2021-01-19] MEDS: hydrALAZINE 25 MG TABLET PO SCH ×2 (13:33→14:00)
--- NOTE | 2021-01-19 13:45 | NUR ---
SW following for discharge planning. Reviewed chart and discussed with RN. JEWELS faxed chest xray results and updated clinicals to [facility]. SW awaiting return call for final chair time. Pt to discharge home today, self-care. Addendum: 01/19/21 at 1554 by PAULETTE DONIS Spoke with [facility] admissions and confirmed 1600 chair time on MWF at [facility]. Pt's first dialysis treatment will be at 1515 on 01/22/2021. Pt notified. No further SW needs at this time.
--- NOTE | 2021-01-19 13:50 | PDOC3 ---
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 Temporary HD cath placed HTN - cont meds, IV hydralazine prn HLD - cont statin PAFIB - on eliquis, has pacemaker Anemia - of renal disease, H/o COVID 19 - long haul symptoms since march, Medical Problems: (1) ESRD on hemodialysis Status: Acute (2) Hypertensive urgency Status: Acute Brief Hospital Course Allergies Allergies Coded Allergies Type Severity Reaction Last Updated Verified codeine Adverse Reaction Intermediate GI Upset 01/12/21 Yes hydrocodone Adverse Reaction Intermediate GI Upset 01/12/21 Yes Vital Signs Vital Signs Date Time Temp Pulse Resp B/P (MAP) Pulse Ox O2 Delivery O2 Flow Rate FiO2 01/19/21 13:33 76 167/76 01/19/21 11:18 95 Room Air 01/19/21 07:00 98.5 18 98.5 01/18/21 11:23 2.0 Lab Results Laboratory Tests Test 01/17/21 19:40 01/18/21 07:50 01/19/21 06:10 Coronavirus (PCR) Not detected (Not Detected) SARS-CoV-2 Antigen (Rapid) Negative (NEGATIVE) White Blood Count 5.3 x10^3/uL (4.0-11.0) Red Blood Count 3.07 x10^6/uL (3.50-5.40) Hemoglobin 9.0 g/dL (12.0-15.5) Hematocrit 27.5 % (36.0-47.0) Mean Corpuscular Volume 89 fL (79-100) Mean Corpuscular Hemoglobin 29 pg (25-35) Mean Corpuscular Hemoglobin Concent 33 g/dL (31-37) Red Cell Distribution Width 13.9 % (11.5-14.5) Platelet Count 340 x10^3/uL (140-400) Neutrophils (%) (Auto) 55 % (31-73) Lymphocytes (%) (Auto) 22 % (24-48) Monocytes (%) (Auto) 18 % (0-9) Eosinophils (%) (Auto) 4 % (0-3) Basophils (%) (Auto) 1 % (0-3) Neutrophils # (Auto) 2.9 x10^3/uL (1.8-7.7) Lymphocytes # (Auto) 1.2 x10^3/uL (1.0-4.8) Monocytes # (Auto) 0.9 x10^3/uL (0.0-1.1) Eosinophils # (Auto) 0.2 x10^3/uL (0.0-0.7) Basophils # (Auto) 0.1 x10^3/uL (0.0-0.2) Sodium Level 142 mmol/L (136-145) 141 mmol/L (136-145) Potassium Level 3.4 mmol/L (3.5-5.1) 3.4 mmol/L (3.5-5.1) Chloride Level 103 mmol/L (98-107) 103 mmol/L (98-107) Carbon Dioxide Level 30 mmol/L (21-32) 28 mmol/L (21-32) Anion Gap 9 (6-14) 10 (6-14) Blood Urea Nitrogen 14 mg/dL (7-20) 24 mg/dL (7-20) Creatinine 2.5 mg/dL (0.6-1.0) 3.8 mg/dL (0.6-1.0) Estimated GFR (Cockcroft-Gault) 18.7 11.5 Glucose Level 100 mg/dL (70-99) 104 mg/dL (70-99) Calcium Level 7.8 mg/dL (8.5-10.1) 7.6 mg/dL (8.5-10.1) Phosphorus Level 3.5 mg/dL (2.6-4.7) 3.7 mg/dL (2.6-4.7) Albumin 2.7 g/dL (3.4-5.0) 2.6 g/dL (3.4-5.0) Laboratory Tests Test 01/19/21 06:10 Sodium Level 141 mmol/L (136-145) Potassium Level 3.4 mmol/L (3.5-5.1) Chloride Level 103 mmol/L (98-107) Carbon Dioxide Level 28 mmol/L (21-32) Anion Gap 10 (6-14) Blood Urea Nitrogen 24 mg/dL (7-20) Creatinine 3.8 mg/dL (0.6-1.0) Estimated GFR (Cockcroft-Gault) 11.5 Glucose Level 104 mg/dL (70-99) Calcium Level 7.6 mg/dL (8.5-10.1) Phosphorus Level 3.7 mg/dL (2.6-4.7) Albumin 2.6 g/dL (3.4-5.0) Brief Hospital Course Ms. Taveras is a 75 old female,a dmit with htn urgency, fluid overload, acute on chronic renal, now ESRD, CKD 5, HD started and better, tunneled line 01/18 HD on DC, chair time set, DC home Discharge Information Condition at Discharge: Improved Follow Up: Weeks Disposition/Orders: D/C to Home Scheduled Albuterol Sulfate (Ventolin Hfa Inhaler) 18 Gm Hfa.aer.ad, 2 PUFF INH QID for FOR ASTHMA, Ref 0 (Reported) Entered as Reported by: NADIRA PARKER on 07/31/20803 Last Action: Converted on 01/17/2140 by FRANCO DIETRICH MD Albuterol Sulfate (Albuterol Sulfate Conc Neb Soln) 2.5 Mg/0.5 Ml Vial.neb, 1 VIAL NEB Q4HRS for shortness of breath, #60 Ref 1 (Reported) Entered as Reported by: NADIRA PARKER on 07/31/20803 Last Action: Converted on 01/17/2140 by FRANCO DIETRICH MD Amlodipine Besylate (Amlodipine Besylate) 10 Mg Tablet, 1 TAB PO DAILY, #30 Ref 5 (Reported) Entered as Reported by: GARRICK SWIFT on 07/18/15 0917 Last Action: Continued on 01/17/2139 by FRANCO DIETRICH MD Apixaban (Eliquis) 5 Mg Tablet, 5 MG PO BID for BLOOD THINNER , (Reported) Entered as Reported by: EILEEN LAI on 01/10/21 1057 Last Action: Continued on 01/17/2139 by FRANCO DIETRICH MD Ferrous Sulfate (Iron) 325 Mg Tablet, 1 TAB PO DAILY for anemia in renal disease for 30 Days, #30 Ref 0 Prescribed by: BLOSSOM BOLAÑOS on 01/19/21 1219 Hydralazine Hcl (Hydralazine Hcl) 25 Mg Tablet, 1 TAB PO TID for blood pressure, #90 Ref 5 (Reported) Entered as Reported by: NADIRA PARKER on 07/31/20803 Last Action: Continued on 01/17/2140 by FRANCO DIETRICH MD Labetalol Hcl (Labetalol Hcl) 300 Mg Tablet, 300 MG PO BID for HIGH BLOOD PRESSURE , (Reported) Entered as Reported by: EILEEN LAI on 01/10/21 1055 Last Action: Converted on 01/17/2140 by FRANCO DIETRICH MD Lansoprazole (Lansoprazole) 30 Mg Capsule.dr, 30 MG PO BID, #60 (Reported) Entered as Reported by: JENNIFER BECK on 04/13/151548 Last Action: Converted on 01/17/2140 by FRANCO DIETRICH MD Scheduled PRN Tramadol Hcl (Tramadol Hcl) 50 Mg Tablet, 50 MG PO PRN TID PRN for PAIN, #60 (Reported) Entered as Reported by: JENNIFER BECK on 04/13/151548 Last Action: Continued on 01/17/2140 by FRANCO DIETRICH MD Discontinued Medications Budesonide (Pulmicort) 0.5 Mg/2 Ml Ampul.neb, 1 VIAL NEB BID for shortness of breath, #60 Ref 3 (Reported) Entered as Reported by: NADIRA PARKER on 07/31/20803 Patient Instructions Patient Instructions pt seen face to face, improved, Justicifation of Admission Dx: Justifications for Admission: Justification of Admission Dx: Yes BLOSSOM BOLAÑOS MD Jan 19, 2021 13:50
--- NOTE | 2021-01-19 14:09 | NUR ---
1400 hydralazine non admin as pt just got back from dialysis and received a.m. dose
--- NOTE | 2021-01-19 15:49 | NUR ---
patient discharged home with son. meds and follow up reviewed. [facility] including MWF chair time of 1600. IV removed, cath intact. pt provided w/ tunnelled cath care directions. pt stable upon dc.
[2021-01-19] MEDS ORDERED: CALCIUM ACETATE 667 MG CAPSULE PO SCH (17:00)
== END 2021-01-19 15:51 | disposition home or self-care (01) | DRG 673 ==
LOC: ER 13:11 → 6 SOUTH 15:00 → 5 NORTH 20:45
PROVIDERS: ADMIT Internal Medicine; ATTEND Internal Medicine
PROC: 02H633Z Insertion of Infusion Device into Right Atrium, Percutaneous Approach (ICD-10-PCS; 2021-01-16)
PROC: B5181ZA Fluoroscopy of Superior Vena Cava using Low Osmolar Contrast, Guidance (ICD-10-PCS; 2021-01-16)
PROC: B548ZZA Ultrasonography of Superior Vena Cava, Guidance (ICD-10-PCS; 2021-01-16)
PROC: 5A1D70Z Performance of Urinary Filtration, Intermittent, Less than 6 Hours Per Day (ICD-10-PCS; principal; 2021-01-17)
PROC: 0JH63XZ Insertion of Tunneled Vascular Access Device into Chest Subcutaneous Tissue and Fascia, Percutaneous Approach (ICD-10-PCS; 2021-01-18)
PROC: 02PYX3Z Removal of Infusion Device from Great Vessel, External Approach (ICD-10-PCS; 2021-01-18)
PROC: 02H633Z Insertion of Infusion Device into Right Atrium, Percutaneous Approach (ICD-10-PCS; 2021-01-18)
PROC: B5181ZA Fluoroscopy of Superior Vena Cava using Low Osmolar Contrast, Guidance (ICD-10-PCS; 2021-01-18)
PROC: 5A1D70Z Performance of Urinary Filtration, Intermittent, Less than 6 Hours Per Day (ICD-10-PCS; 2021-01-19)
DX: I12.0 Hypertensive chronic kidney disease with stage 5 chronic kidney disease or end stage renal disease (principal); N18.6 End stage renal disease; I16.1 Hypertensive emergency; N17.9 Acute kidney failure, unspecified; E78.5 Hyperlipidemia, unspecified; I48.0 Paroxysmal atrial fibrillation; D64.9 Anemia, unspecified; Z99.2 Dependence on renal dialysis; E78.00 Pure hypercholesterolemia, unspecified; K27.9 Peptic ulcer, site unspecified, unspecified as acute or chronic, without hemorrhage or perforation; Z82.49 Family history of ischemic heart disease and other diseases of the circulatory system; Z86.16 Personal history of COVID-19; Z87.11 Personal history of peptic ulcer disease; Z87.891 Personal history of nicotine dependence; Z90.710 Acquired absence of both cervix and uterus; Z20.822 Contact with and (suspected) exposure to COVID-19; Z88.8 Allergy status to other drugs, medicaments and biological substances; E87.70 Fluid overload, unspecified
CPT/HCPCS: 36415; 36556; 36581; 71045; 76937; 77001; 80053; 80069; 83735; 85025; 85610; 85730; 86317; 86704; 86706; 87340; 87426; 94640; 94760; 96374; 99152; C1750; C1769; C1892; J0360; J0690; J2250; J3010; J3490; U0003; 97110-GP; 99285-25; G0378; J7613

== ENCOUNTER → 2021-01-29 | Outpatient (CLI) | payer BC, MEDICARE ==
[2021-01-19 13:33] VITALS: BP 167/76
[~2021-01-29] MED LIST changes: +FERR-36 PO; +OXYC-325 PO
--- NOTE | 2021-01-29 17:15 | KCIC ---
EXAM: XR CHEST 2V INDICATION: Reason: +TB, COPD, SMOKER, STAGE 4 KIDNEY DISEASE, DIALYSIS CATHETER RT CHEST / Spl. Inst ructions: / History: . TECHNIQUE: PA and lateral views COMPARISON: 01/18/2021 chest x-ray FINDINGS: Right jugular approach dual-lumen central venous catheter remains present with the tip terminating ne ar the cavoatrial junction. Left chest dual-chamber pacemaker is present, similar to prior. Multiple monitor leads have since been moved off the patient's chest. The heart size is normal. The great vessels appear unremarkable. There is no hilar or mediastinal mass. Lungs show mild diffuse prominence of interstitial lung markings. No focal infiltrates. There is no pleural effusion or pneumothorax. There are no significant osseous abnormalities. IMPRESSION: Similar findings of mild pulmonary vascular congestion with no acute superimposed process. Electronically signed by: Nishant Rodriguez MD (01/29/2021 5:13 PM) [id number]
== END ==
LOC: KCIC 12:29
PROVIDERS: ATTEND Family Medicine
DX: R76.11 Nonspecific reaction to tuberculin skin test without active tuberculosis (principal); J44.9 Chronic obstructive pulmonary disease, unspecified; R09.89 Other specified symptoms and signs involving the circulatory and respiratory systems; F17.200 Nicotine dependence, unspecified, uncomplicated
CPT/HCPCS: 71046

== ENCOUNTER → 2021-01-31 | Outpatient (CLI) | payer BC, MEDICARE ==
[2021-01-19 13:33] VITALS: BP 167/76
[~2021-01-31] MED LIST changes: -OXYC-325 PO
== END ==
LOC: LAB 11:40
PROVIDERS: ATTEND Nurse Practitioner Adult Health
DX: Z20.1 Contact with and (suspected) exposure to tuberculosis (principal); Z88.5 Allergy status to narcotic agent
CPT/HCPCS: 86481

== ENCOUNTER 2021-03-29 06:07 | Day surgery (SDC) | payer BC, MEDICARE ==
[~2021-03-29 06:07] MED LIST changes: +HEPARIN SODIUM 5,000 UNIT in IV NORMAL SALINE 500ML BAG 500 ML IRR ONE; +HYDROmorphone 2 MG/ML VIAL IVP PRN; +IV RINGERS,LACTATED 1000ML 1,000 ML IV SCH; +MORPHINE SULFATE 2 MG/ML VIAL. IVP PRN; +PROCHLORPERAZINE 10 MG/2 ML VIAL. IVP PRN; +fentaNYL PF VIAL 100 MCG/2 ML VIAL IVP PRN
[2021-03-29] MEDS ORDERED: SURGICEL FIBRILLAR 1X2 EACH. ONE (07:03)
[2021-03-29] MEDS ORDERED: PAPAVERINE 60 MG/2 ML VIAL. ONE (07:03)
[2021-03-29] MEDS ORDERED: LIDOCAINE 1% PF 30 ML VIAL. ONE (07:03)
[2021-03-29] MEDS ORDERED: LIDOCAINE 1% Multi-Dose 20 ML VIAL. ONE (07:03)
[2021-03-29] MEDS ORDERED: fentaNYL PF VIAL 100 MCG/2 ML VIAL ONE ×2 (07:09→09:36)
[2021-03-29] MEDS ORDERED: ONDANSETRON PF 4 MG/2 ML VIAL. ONE (07:14)
[2021-03-29] MEDS ORDERED: PROPOFOL 10 MG/ML (20ML) VIAL. IV ONE ×2 (07:14→09:10)
[2021-03-29] MEDS ORDERED: LIDOCAINE 2% PF 5 ML VIAL. ONE (07:14)
[2021-03-29] MEDS ORDERED: IV NORMAL SALINE 1000ML BAG 1,000 ML IV ONE (07:15)
[2021-03-29 07:17] LABS: BASO # 0.1 x10^3/uL (0.0-0.2); BASO % 1 % (0-3); EOS # 0.1 x10^3/uL (0.0-0.7); EOS % 2 % (0-3); HEMATOCRIT 40.3 % (36.0-47.0); HEMOGLOBIN 13.5 g/dL (12.0-15.5); LYMPH % 12 % (24-48); MEAN CORPUSCULAR HEMOGLOBIN 31 pg (25-35); MEAN CORPUSCULAR HGB CONC 34 g/dL (31-37); MEAN CORPUSCULAR VOLUME 92 fL (79-100); MONO # 0.8 x10^3/uL (0.0-1.1); MONO % 9 % (0-9); NEUT # 6.5 x10^3/uL (1.8-7.7); NEUT % 76 % (31-73); PLATELET COUNT 331 x10^3/uL (140-400); RED BLOOD COUNT 4.37 x10^6/uL (3.50-5.40); RED CELL DISTRIBUTION WIDTH 14.7 % (11.5-14.5); WHITE BLOOD COUNT 8.6 x10^3/uL (4.0-11.0)
--- NOTE | 2021-03-29 07:19 | PDOC ---
PROGRESS NOTES Date of Service DATE: 03/29/21 TIME: 07:17 Subjective Subjective Pt seen and examined in the pre-operative area -- no changes to her H&P from the office She has a rihght arm basilic vein fistula that has matured -- she presents today for transposition I discussed with her the procedure, risks, benefits, alternatives and she wishes to proceed right arm marked and consent signed. Objective Objective Vital Signs Date Time Temp Pulse Resp B/P (MAP) Pulse Ox O2 Delivery O2 Flow Rate FiO2 03/29/21 06:58 97.0 67 20 99 97.0 03/29/21 06:46 150/71 Room Air Comment Review of Relevant I have reviewed the following items tiana (where applicable) has been applied. Labs Laboratory Tests Test 03/29/21 06:31 SARS-CoV-2 Antigen (Rapid) Negative (NEGATIVE) Laboratory Tests Test 03/29/21 06:31 SARS-CoV-2 Antigen (Rapid) Negative (NEGATIVE) Medications Current Medications Heparin Sodium (Porcine) 5000 unit/Sodium Chloride 505 ml @ 505 mls/hr 1X ONCE IRR ; Start 03/29/21 at 06:00; Stop 03/29/21 at 06:59; Status DC Cefazolin Sodium 1 gm/Sodium Chloride 500 ml @ 500 mls/hr 1X ONCE IRR ; Start 03/29/21 at 06:00; Stop 03/29/21 at 06:59; Status DC Fentanyl Citrate (Fentanyl 2ml Vial) 25 mcg PRN Q5MIN PRN IVP MILD PAIN 1-3; Start 03/29/21 at 06:00; Stop 03/30/21 at 05:59 Fentanyl Citrate (Fentanyl 2ml Vial) 50 mcg PRN Q5MIN PRN IVP MODERATE PAIN 4- 6; Start 03/29/21 at 06:00; Stop 03/30/21 at 05:59 Morphine Sulfate (Morphine Sulfate) 1 mg PRN Q10MIN PRN IVP SEVERE PAIN 7-10; Start 03/29/21 at 06:00; Stop 03/30/21 at 05:59 Ringer's Solution 1,000 ml @ 30 mls/hr Q24H IV ; Start 03/29/21 at 06:00; Stop 03/29/21 at 17:59 Hydromorphone HCl (Dilaudid) 0.5 mg PRN Q10MIN PRN IVP SEVERE PAIN 7-10, 2nd CHOICE; Start 03/29/21 at 06:00; Stop 03/30/21 at 05:59 Prochlorperazine Edisylate (Compazine) 5 mg PACU PRN PRN IVP NAUSEA, MRX1; Start 03/29/21 at 06:00; Stop 03/30/21 at 05:59 Cefazolin Sodium/ Dextrose 50 ml @ 100 mls/hr 1X PREOP PRN IV PRIOR TO PROCEDURE; Start 03/29/21 at 06:00; Stop 03/29/21 at 18:00 Lidocaine HCl (Lidocaine 1% 20ml Vial) 20 ml STK-MED ONCE .ROUTE ; Start 03/29/21 at 07:03; Stop 03/29/21 at 07:03; Status DC Cellulose (Surgicel Fibrillar 1x2) 1 each STK-MED ONCE .ROUTE ; Start 03/29/21 at 07:03; Stop 03/29/21 at 07:03; Status DC Lidocaine HCl (Xylocaine 1% Pf 30ml Vial) 30 ml STK-MED ONCE .ROUTE ; Start 03/29/21 at 07:03; Stop 03/29/21 at 07:03; Status DC Papaverine HCl 60 mg STK-MED ONCE .ROUTE ; Start 03/29/21 at 07:03; Stop 03/29/21 at 07:03; Status DC Sodium Chloride 1,000 ml @ 0 mls/hr 1X ONCE IV Last administered on 03/29/21at 07:14; Start 03/29/21 at 07:15; Stop 03/29/21 at 07:16; Status DC Fentanyl Citrate (Fentanyl 2ml Vial) 100 mcg STK-MED ONCE .ROUTE ; Start 03/29/21 at 07:09; Stop 03/29/21 at 07:09; Status DC Lidocaine HCl (Lidocaine Pf 2% Vial) 5 ml STK-MED ONCE .ROUTE ; Start 03/29/21 at 07:14; Stop 03/29/21 at 07:14; Status DC Propofol (Diprivan) 200 mg STK-MED ONCE IV ; Start 03/29/21 at 07:14; Stop 03/29/21 at 07:14; Status DC Ondansetron HCl (Zofran) 4 mg STK-MED ONCE .ROUTE ; Start 4/29/21 at 07:14; Stop 03/29/21 at 07:14; Status DC Active Scripts Active Iron (Ferrous Sulfate) 325 Mg Tablet 1 Tab PO DAILY 30 Days Reported Eliquis (Apixaban) 5 Mg Tablet 2.5 Mg PO BID Labetalol Hcl 300 Mg Tablet 300 Mg PO BID Albuterol Sulfate Conc Neb Soln (Albuterol Sulfate) 2.5 Mg/0.5 Ml Vial.neb 1 Vial NEB Q4HRS Ventolin Hfa Inhaler (Albuterol Sulfate) 18 Gm Hfa.aer.ad 2 Puff INH QID Hydralazine Hcl 25 Mg Tablet 1 Tab PO TID Amlodipine Besylate 10 Mg Tablet 1 Tab PO DAILY Tramadol Hcl 50 Mg Tablet 50 Mg PO PRN TID PRN Lansoprazole 30 Mg Capsule.dr 30 Mg PO BID Vitals/I & O Vital Sign - Last 24 Hours 03/29/21 03/29/21 06:46 06:58 Temp 97.0 97.0 97.0 97.0 Pulse 67 67 Resp 20 20 B/P (MAP) 150/71 Pulse Ox 99 99 O2 Delivery Room Air Justifications for Admission Other Justification VANESSA VENTURA MD Mar 29, 2021 07:19
[2021-03-29 07:34] LABS: GFR 15.2; POTASSIUM 3.9 mmol/L (3.5-5.1)
[2021-03-29] MEDS ORDERED: PHENYLEPHRINE in 0.9% NACL PF 1 MG/10 ML SYRINGE. IV ONE (08:19)
[2021-03-29] MEDS ORDERED: ePHEDrine PF IN SALINE 50 MG/10 ML SYRINGE. IV ONE (08:19)
[2021-03-29] MEDS ORDERED: HEPARIN for IV BOLUS 10,000 UNIT/10 ML VIAL. ONE (08:39)
--- NOTE | 2021-03-29 09:20 | PDOC4 ---
OPERATIVE NOTE Date: Date: Mar 29, 2021 Pre-Op Diagnosis: Chronic kidney disease need for long-term renal replacement therapy Need for long-term hemodialysis access Previous first stage direct brachial basilic fistula need for transposition for access Post-Op Diagnosis: Same as above Procedure Performed: Right arm transposed basilic vein fistula with a new arterial anastomosis Surgeon: Alex Ventura MD Hand Spring Repairer Helper: Christina Rodriguez PA-C assistant printer floor covering was necessary for exposure, positioning, following and assistance with arterial anastomosis etc. In general vascular anastomosis/repair is not well-suited to single surgeon single identification technician performance. This hospital has no residents available for warehouse administrative assistant Anesthesia Type: General with additional local Blood Loss: 10 cc Specimans Obtained: None Findings: The usable basilic vein was actually quite short before it entered the deep brachial vein The available vein was transposed more laterally along the medial portion of the arm. Given the short piece of vein and the arterial anastomosis was necessary Excellent thrill in the vein, strong ulnar and radial signal in the wrist at the end of the case Complications: None Operative Note: Patient was taken the operating room placed supine on the table. Anesthesia was induced without difficulty. Right arm was prepped and draped in usual sterile fashion. Appropriate timeout was performed. Attention was directed the right arm where the path of the basilic vein was marked on the arm using ultrasound guidance. Local anesthetic was injected and incision was made near the previous surgical anastomosis extending longitudinally proximally in the arm. This was carried down with Bovie cautery until the fistula was identified. Fistula was mobilized circumferentially and dissected distally. The remainder of the vein was freed up via a separate skip incision in the more proximal arm. It was noted that prior to the axilla really in the more distal portion of the mid arm the basilic vein entered the deep vein in the arm limiting the amount of vein available for transposition. This vein was completely mobilized. It was clamped near the arterial anastomosis and divided in a spatulated fashion. It was mobilized all the way back to the area however entered the deep vein and then flushed with heparinized saline with good flow and found to be of good size. A tonsil clamp was used to the tunnel this in a more superficial and slightly more lateral path. Given the short piece of the vein I felt it would be better give us a better position more usable vein for greater in your slightly more proximal arterial anastomosis. The previous vein cuff was clipped and tied. The brachial artery slightly more proximal arm was dissected free from surrounding structures and controlled proximally distally. Patient was given intravenous heparin and when this had been given adequate time for circulation the artery was occluded proximally distally a small atraumatic bulldog clamps. An 11 blade was used to make a standard anterior arteriotomy and this is extended to 5 mm measured with Pineda angled scissors. Spatulated end of the vein was brought to the artery under appropriate orientation a standard inside anastomosis was created with a running 7-0 Prolene suture in the standard fashion. Just prior to completion of the repair the vessels were backbled for flushed and irrigated heparinized saline. Repair was completed normal for flow was returned through the fistula and then to the hand. Fistula is found to have an excellent thrill. There was good hemostasis at the anastomosis. A hand-held continuous-wave Doppler showed an excellent radial and ulnar signal at the wrist. We confirmed excellent hemostasis within the operative field and then placed some fibrillar topical hemostatic agent in the wound. The wounds were both closed with deep running 3-0 Vicryl followed by running subcuticular 4-0 Vicryl. Arm was cleaned and dried and Dermabond was placed over the incisios. Once this a dry the patient was awakened and explained the operative_recovery in stable condition. There were no complications, she tolerated usual throughout, at the end the case all sponge, needle, and instrument counts were reported to me as correct x2. VANESSA VENTURA MD Mar 29, 2021 09:20
--- NOTE | 2021-03-29 09:41 | PDOC ---
PROGRESS NOTES Date of Service DATE: 03/29/21 TIME: 09:39 Subjective Subjective Pt seen in recovery s/p right arm AVF she denies any pain / paresthesias / weakness in the hand incisions c/d/i no hematoma fistula with palpable thrill palpable radial pulse ipsilateral wrist, good pulse ox waveform same hand strong special services coordinator normal sensation hand doing well home today Objective Objective Vital Signs Date Time Temp Pulse Resp B/P (MAP) Pulse Ox O2 Delivery O2 Flow Rate FiO2 03/29/21 09:27 Mask 6 03/29/21 06:58 97.0 67 20 99 97.0 03/29/21 06:46 150/71 Comment Review of Relevant I have reviewed the following items tiana (where applicable) has been applied. Labs Laboratory Tests Test 03/29/21 05:30 03/29/21 06:31 White Blood Count 8.6 x10^3/uL (4.0-11.0) Red Blood Count 4.37 x10^6/uL (3.50-5.40) Hemoglobin 13.5 g/dL (12.0-15.5) Hematocrit 40.3 % (36.0-47.0) Mean Corpuscular Volume 92 fL (79-100) Mean Corpuscular Hemoglobin 31 pg (25-35) Mean Corpuscular Hemoglobin Concent 34 g/dL (31-37) Red Cell Distribution Width 14.7 % (11.5-14.5) Platelet Count 331 x10^3/uL (140-400) Neutrophils (%) (Auto) 76 % (31-73) Lymphocytes (%) (Auto) 12 % (24-48) Monocytes (%) (Auto) 9 % (0-9) Eosinophils (%) (Auto) 2 % (0-3) Basophils (%) (Auto) 1 % (0-3) Neutrophils # (Auto) 6.5 x10^3/uL (1.8-7.7) Lymphocytes # (Auto) 1.0 x10^3/uL (1.0-4.8) Monocytes # (Auto) 0.8 x10^3/uL (0.0-1.1) Eosinophils # (Auto) 0.1 x10^3/uL (0.0-0.7) Basophils # (Auto) 0.1 x10^3/uL (0.0-0.2) Sodium Level 140 mmol/L (136-145) Potassium Level 3.9 mmol/L (3.5-5.1) Chloride Level 103 mmol/L (98-107) Carbon Dioxide Level 26 mmol/L (21-32) Anion Gap 11 (6-14) Blood Urea Nitrogen 23 mg/dL (7-20) Creatinine 3.0 mg/dL (0.6-1.0) Estimated GFR (Cockcroft-Gault) 15.2 Glucose Level 105 mg/dL (70-99) Calcium Level 8.0 mg/dL (8.5-10.1) SARS-CoV-2 RNA (LA) Negative (Negative) SARS-CoV-2 Antigen (Rapid) Negative (NEGATIVE) Laboratory Tests Test 03/29/21 05:30 03/29/21 06:31 White Blood Count 8.6 x10^3/uL (4.0-11.0) Red Blood Count 4.37 x10^6/uL (3.50-5.40) Hemoglobin 13.5 g/dL (12.0-15.5) Hematocrit 40.3 % (36.0-47.0) Mean Corpuscular Volume 92 fL (79-100) Mean Corpuscular Hemoglobin 31 pg (25-35) Mean Corpuscular Hemoglobin Concent 34 g/dL (31-37) Red Cell Distribution Width 14.7 % (11.5-14.5) Platelet Count 331 x10^3/uL (140-400) Neutrophils (%) (Auto) 76 % (31-73) Lymphocytes (%) (Auto) 12 % (24-48) Monocytes (%) (Auto) 9 % (0-9) Eosinophils (%) (Auto) 2 % (0-3) Basophils (%) (Auto) 1 % (0-3) Neutrophils # (Auto) 6.5 x10^3/uL (1.8-7.7) Lymphocytes # (Auto) 1.0 x10^3/uL (1.0-4.8) Monocytes # (Auto) 0.8 x10^3/uL (0.0-1.1) Eosinophils # (Auto) 0.1 x10^3/uL (0.0-0.7) Basophils # (Auto) 0.1 x10^3/uL (0.0-0.2) Sodium Level 140 mmol/L (136-145) Potassium Level 3.9 mmol/L (3.5-5.1) Chloride Level 103 mmol/L (98-107) Carbon Dioxide Level 26 mmol/L (21-32) Anion Gap 11 (6-14) Blood Urea Nitrogen 23 mg/dL (7-20) Creatinine 3.0 mg/dL (0.6-1.0) Estimated GFR (Cockcroft-Gault) 15.2 Glucose Level 105 mg/dL (70-99) Calcium Level 8.0 mg/dL (8.5-10.1) SARS-CoV-2 RNA (LA) Negative (Negative) SARS-CoV-2 Antigen (Rapid) Negative (NEGATIVE) Medications Current Medications Heparin Sodium (Porcine) 5000 unit/Sodium Chloride 505 ml @ 505 mls/hr 1X ONCE IRR Last administered on 03/29/21at 08:02; Start 03/29/21 at 06:00; Stop 03/29/21 at 06:59; Status DC Cefazolin Sodium 1 gm/Sodium Chloride 500 ml @ 500 mls/hr 1X ONCE IRR Last administered on 03/29/21at 08:02; Start 03/29/21 at 06:00; Stop 03/29/21 at 06:59; Status DC Fentanyl Citrate (Fentanyl 2ml Vial) 25 mcg PRN Q5MIN PRN IVP MILD PAIN 1-3; Start 03/29/21 at 06:00; Stop 03/30/21 at 05:59 Fentanyl Citrate (Fentanyl 2ml Vial) 50 mcg PRN Q5MIN PRN IVP MODERATE PAIN 4- 6; Start 03/29/21 at 06:00; Stop 03/30/21 at 05:59 Morphine Sulfate (Morphine Sulfate) 1 mg PRN Q10MIN PRN IVP SEVERE PAIN 7-10; Start 03/29/21 at 06:00; Stop 03/30/21 at 05:59 Ringer's Solution 1,000 ml @ 30 mls/hr Q24H IV ; Start 03/29/21 at 06:00; Stop 03/29/21 at 17:59 Hydromorphone HCl (Dilaudid) 0.5 mg PRN Q10MIN PRN IVP SEVERE PAIN 7-10, 2nd CHOICE; Start 03/29/21 at 06:00; Stop 03/30/21 at 05:59 Prochlorperazine Edisylate (Compazine) 5 mg PACU PRN PRN IVP NAUSEA, MRX1; Start 03/29/21 at 06:00; Stop 03/30/21 at 05:59 Cefazolin Sodium/ Dextrose 50 ml @ 100 mls/hr 1X PREOP PRN IV PRIOR TO PROCEDURE Last administered on 03/29/21at 07:29; Start 03/29/21 at 06:00; Stop 03/29/21 at 18:00 Lidocaine HCl (Lidocaine 1% 20ml Vial) 20 ml STK-MED ONCE .ROUTE ; Start 03/29/21 at 07:03; Stop 03/29/21 at 07:03; Status DC Cellulose (Surgicel Fibrillar 1x2) 1 each STK-MED ONCE .ROUTE Last administered on 03/29/21at 08:59; Start 03/29/21 at 07:03; Stop 03/29/21 at 07:03; Status DC Lidocaine HCl (Xylocaine 1% Pf 30ml Vial) 30 ml STK-MED ONCE .ROUTE Last administered on 03/29/21at 08:02; Start 03/29/21 at 07:03; Stop 03/29/21 at 07:03; Status DC Papaverine HCl 60 mg STK-MED ONCE .ROUTE ; Start 03/29/21 at 07:03; Stop 03/29/21 at 07:03; Status DC Sodium Chloride 1,000 ml @ 0 mls/hr 1X ONCE IV Last administered on 03/29/21at 07:14; Start 03/29/21 at 07:15; Stop 03/29/21 at 07:16; Status DC Fentanyl Citrate (Fentanyl 2ml Vial) 100 mcg STK-MED ONCE .ROUTE ; Start 03/29/21 at 07:09; Stop 03/29/21 at 07:09; Status DC Lidocaine HCl (Lidocaine Pf 2% Vial) 5 ml STK-MED ONCE .ROUTE ; Start 03/29/21 at 07:14; Stop 03/29/21 at 07:14; Status DC Propofol (Diprivan) 200 mg STK-MED ONCE IV ; Start 03/29/21 at 07:14; Stop 03/29/21 at 07:14; Status DC Ondansetron HCl (Zofran) 4 mg STK-MED ONCE .ROUTE ; Start 03/29/21 at 07:14; Stop 03/29/21 at 07:14; Status DC Ephedrine Sulfate (ePHEDrine PF IN SALINE SYRINGE) 50 mg STK-MED ONCE IV ; Start 03/29/21 at 08:19; Stop 03/29/21 at 08:19; Status DC Phenylephrine HCl (PHENYLEPHRINE in 0.9% NACL PF) 1 mg STK-MED ONCE IV ; Start 03/29/21 at 08:19; Stop 03/29/21 at 08:19; Status DC Heparin Sodium (Porcine) (Heparin Sodium) 10,000 unit STK-MED ONCE .ROUTE ; Start 03/29/21 at 08:39; Stop 03/29/21 at 08:40; Status DC Propofol (Diprivan) 200 mg STK-MED ONCE IV ; Start 03/29/21 at 09:10; Stop 03/29/21 at 09:10; Status DC Fentanyl Citrate (Fentanyl 2ml Vial) 100 mcg STK-MED ONCE .ROUTE ; Start 03/29/21 at 09:36; Stop 03/29/21 at 09:36; Status DC Active Scripts Active Iron (Ferrous Sulfate) 325 Mg Tablet 1 Tab PO DAILY 30 Days Reported Eliquis (Apixaban) 5 Mg Tablet 2.5 Mg PO BID Labetalol Hcl 300 Mg Tablet 300 Mg PO BID Albuterol Sulfate Conc Neb Soln (Albuterol Sulfate) 2.5 Mg/0.5 Ml Vial.neb 1 Vial NEB Q4HRS Ventolin Hfa Inhaler (Albuterol Sulfate) 18 Gm Hfa.aer.ad 2 Puff INH QID Hydralazine Hcl 25 Mg Tablet 1 Tab PO TID Amlodipine Besylate 10 Mg Tablet 1 Tab PO DAILY Tramadol Hcl 50 Mg Tablet 50 Mg PO PRN TID PRN Lansoprazole 30 Mg Capsule.dr 30 Mg PO BID Vitals/I & O Vital Sign - Last 24 Hours 03/29/21 03/29/21 03/29/21 06:46 06:58 09:27 Temp 97.0 97.0 97.0 97.0 Pulse 67 67 Resp 20 20 B/P (MAP) 150/71 Pulse Ox 99 99 O2 Delivery Room Air Mask O2 Flow Rate 6 Justifications for Admission Other Justification VANESSA VENTURA MD Mar 29, 2021 09:41
[2021-03-29] MEDS: fentaNYL PF VIAL 100 MCG/2 ML VIAL IVP PRN ×2 (09:43→09:52)
[2021-03-29] MEDS ORDERED: traMADol 50 MG TABLET PO ONE (09:45)
[2021-03-29] MEDS ORDERED: oxyCODONE/APAP 5/325 1 TAB TABLET PO ONE (10:00)
[2021-03-29] MEDS ORDERED: OXYC-325 PO (10:05)
[2021-03-29 10:25] VITALS: BP 158/72
== END 2021-03-29 10:55 | disposition home or self-care (01) ==
LOC: SURG 06:07
PROVIDERS: ATTEND Surgery Vascular Surgery
DX: I12.0 Hypertensive chronic kidney disease with stage 5 chronic kidney disease or end stage renal disease (principal); N18.6 End stage renal disease; E78.00 Pure hypercholesterolemia, unspecified; I48.91 Unspecified atrial fibrillation; I25.10 Atherosclerotic heart disease of native coronary artery without angina pectoris; J44.9 Chronic obstructive pulmonary disease, unspecified; K21.9 Gastro-esophageal reflux disease without esophagitis; M19.90 Unspecified osteoarthritis, unspecified site; G47.30 Sleep apnea, unspecified; F17.210 Nicotine dependence, cigarettes, uncomplicated; Z99.2 Dependence on renal dialysis; Z90.710 Acquired absence of both cervix and uterus; Z98.890 Other specified postprocedural states; Z79.899 Other long term (current) drug therapy; Z88.5 Allergy status to narcotic agent; Z88.8 Allergy status to other drugs, medicaments and biological substances; Z72.89 Other problems related to lifestyle; Z20.822 Contact with and (suspected) exposure to COVID-19; Z82.49 Family history of ischemic heart disease and other diseases of the circulatory system
CPT/HCPCS: 36819; 80048; 85025; 87426; A4364; A6402; J0690; J1644; J2370; J2405; J2704; J3010; J3490; J7040; U0003; U0005; J2440

== ENCOUNTER → 2021-12-04 | Outpatient (CLI) | payer MEDICARE ==
[~2021-12-04] MED LIST changes: -HEPARIN SODIUM 5,000 UNIT in IV NORMAL SALINE 500ML BAG 500 ML IRR ONE; -HYDROmorphone 2 MG/ML VIAL IVP PRN; -IV RINGERS,LACTATED 1000ML 1,000 ML IV SCH; -MORPHINE SULFATE 2 MG/ML VIAL. IVP PRN; +OXYC-325 PO; -PROCHLORPERAZINE 10 MG/2 ML VIAL. IVP PRN; -fentaNYL PF VIAL 100 MCG/2 ML VIAL IVP PRN
--- NOTE | 2021-12-04 17:21 | CARD ---
MR#: [id number] Date of Study: 12/04/2021 Ordering Physician: BIRD CHAMORRO, Referring Physician: BIRD CHAMORRO Tech: Dianna Montague [facility] APPROVED REPORT EXAM: Two-dimensional and M-mode echocardiogram with Doppler and color Doppler. Other Information Quality : GoodHR: 61bpm Rhythm : NSR INDICATION Hypertension/HCVD RISK FACTORS Hypertension Diabetes 2D DIMENSIONS RVDd3.6 (2.9-3.5cm)Left Atrium(2D)3.9 (1.6-4.0cm) IVSd1.8 (0.7-1.1cm)Aortic Root(2D)2.9 (2.0-3.7cm) LVDd4.1 (3.9-5.9cm)LVOT Diameter2.0 (1.8-2.4cm) PWd1.7 (0.7-1.1cm)LVDs3.0 (2.5-4.0cm) FS (%) 26.0 %SV38.1 ml LVEF(%)51.5 (>50%) Aortic Valve AoV Peak Tim.142.5cm/sAoV VTI32.7cm AO Peak GR.8.1mmHgLVOT Peak Tim.122.8cm/s AO Mean GR.4mmHgAVA (VMAX)2.79cm2 Mitral Valve MV E Noibcsih799.1cm/sMV DECEL QPAO269di MV A Igfcvytn449.5cm/sE/A Ratio0.9 Tricuspid Valve TR P. Palfhvws294ir/sTR Peak Gr.34mmHg LEFT VENTRICLE The left ventricle is normal size. There is moderate concentric left ventricular hypertrophy. The lef t ventricular systolic function is normal. Estimated ejection fraction 60%. There is normal LV segme ntal wall motion. Transmitral Doppler flow pattern is Grade I-abnormal relaxation pattern. RIGHT VENTRICLE The right ventricle is normal size. There is normal right ventricular wall thickness. The right ventr icular systolic function is normal. ATRIA The left atrium size is normal. The right atrium size is normal. The interatrial septum is intact wit h no evidence for an atrial septal defect or patent foramen ovale as noted on 2-D or Doppler imaging. AORTIC VALVE The aortic valve is normal in structure and function. Doppler and Color Flow revealed no significant aortic regurgitation. There is no significant aortic valvular stenosis. MITRAL VALVE The mitral valve is normal in structure and function. There is no evidence of mitral valve prolapse. There is no mitral valve stenosis. Doppler and Color-flow revealed mild mitral regurgitation. TRICUSPID VALVE The tricuspid valve is normal in structure and function. Doppler and Color Flow revealed mild tricusp id regurgitation. Estimated PAP 38 mmHg. There is no tricuspid valve stenosis. PULMONIC VALVE The pulmonary valve is normal in structure and function. Doppler and Color Flow revealed trace to mil d pulmonic valvular regurgitation. GREAT VESSELS The aortic root is normal in size. The ascending aorta is normal in size. The IVC is normal in size a nd collapses >50% with inspiration. PERICARDIAL EFFUSION There is no evidence of significant pericardial effusion. Critical Notification Critical Value: No <Conclusion> The left ventricular systolic function is normal. Estimated ejection fraction 60%. There is normal LV segmental wall motion. Transmitral Doppler flow pattern is Grade I-abnormal relaxation pattern. Mild mitral regurgitation. Mild tricuspid regurgitation. Estimated PAP 38 mmHg. There is no evidence of significant pericardial effusion. Signed by : Bird Chamorro, Electronically Approved : 12/04/2021 17:21:01
--- NOTE | 2021-12-07 14:00 | RAD ---
MR#: [id number] Date of Study: 12/04/2021 Ordering Physician: BIRD LONGO, Referring Physician: BIRD LONGO, Tech: Dalton Agosto MBA, RDMS, RVT, RDCS, RTR APPROVED REPORT Patient Location: OUT-PATIENT Indications PAD VELOCITY AND DOPPLER WAVEFORM ANALYSIS RIGHT cm/secWaveformSeverity LEFT cm/secWaveform Severity dCFA 221.0BiphasicdCFA 176.0Biphasic Prof Fem Art. 254.0BiphasicProf Fem Art. 224.0Biphasic Fem Art Prox. 299.0BiphasicFem Art Prox. 180.0Biphasic Fem Art Mid. 233.0BiphasicFem Art Mid. 319.0Biphasic Fem Art Dist. 181.0BiphasicFem Art Dist. 102.0Biphasic Pop Art(Fossa) 126.0BiphasicPop Art(AK) 122.0Biphasic LOFTSMAN Prox. 96.0BiphasicPTA Prox. 93.0Biphasic LOFTSMAN Dist. 89.0BiphasicPTA Dist. 76.0Biphasic Per Art Mid. 50.0BiphasicPer Art Mid. 62.0Biphasic JANE Prox. 83.0BiphasicATA Prox. 76.0Biphasic DPA 99BiphasicDPA 70Biphasic Findings Grayscale images of peripheral arteries bilateral lower extremities showed mild to moderate diffuse a therosclerosis. Spectral waveform and color duplex analysis showed biphasic waveforms throughout bilaterally. The ri ght common femoral artery showed increased velocities consistent with moderate stenosis. The right d eep femoral artery showed increased velocities consistent with moderate stenosis. The right superfic ial femoral artery showed significantly elevated velocities proximally consistent with significant 70 to 99% stenosis. The popliteal artery did not show any significant stenosis. There is three-vessel runoff distally without any significant stenosis. The left common femoral artery did not show any significant stenosis. The left deep femoral artery s howed elevated velocities consistent with moderate stenosis. The left superficial femoral artery eliseo wed significantly elevated velocities in the midsegment consistent with 70 to 99% stenosis. The popl iteal artery did not show any significant stenosis. There is three-vessel runoff below the knee with out any significant stenosis. Critical Notification Critical Value: Yes <Conclusion> Lower extremity arterial duplex scan showed significant stenosis involving bilateral superficial femo ral arteries as described above. Signed by : Bird Longo, Electronically Approved : 12/07/2021 13:59:53
== END ==
LOC: US 13:34
PROVIDERS: ATTEND Internal Medicine Cardiovascular Disease
DX: I08.8 Other rheumatic multiple valve diseases (principal); I70.203 Unspecified atherosclerosis of native arteries of extremities, bilateral legs; I48.0 Paroxysmal atrial fibrillation; I10 Essential (primary) hypertension
CPT/HCPCS: 93306; 93925

== ENCOUNTER → 2021-12-25 | Outpatient (CLI) | payer MEDICARE ==
[~2021-12-25] MED LIST changes: +REGADENOSON 0.4 MG/5 ML DISP.SYRIN. IV ONE
--- NOTE | 2021-12-25 15:33 | RAD ---
MR#: [id number] Date of Study: 12/25/2021 Ordering Physician: BIRD CHAMORRO, Referring Physician: REMINGTON BROOKS Tech: LATONIA Collado, MAURICIO (Ronni) (N) APPROVED REPORT Test Type: Pharmacological Stress Nurse/Tech: Meagan Whitmore RN Test Indications: CAD Cardiac History: Hypertension,Pacemaker Medications: See Electronic Medical Record Medical History: See Electronic Medical Record Resting ECG: SR Resting Heart Rate: 65 bpm Resting Blood Pressure: 158/61mmHg Pretest Chest Pain: No chest pain Nurse/Tech Notes S1,S2 and lungs diminished throughout. Consent: The procedure was explained to the patient in lay terms. Informed consent was witnessed. Aditya eout was entered into [facility]. History and Stress Test performed by LATONIA Collado, MAURICIO (R) (N) Pharm. Details Pharmacologic stress testing was performed using 0.4mg per 5ml of regadenoson given intravenously ove r 7-10 seconds. Stress Symptoms Dyspnea POST EXERCISE Reason for Termination: Infusion complete Target HR: No Max HR: 84 bpm 69% of Maximum Predicted HR: 121 bpm Max Blood Pressure: 157/52mmHg Blood Pressure response to exercise: Normal blood pressure response during stress. Heart Rate response to exercise: WNL Chest Pain: No. Arrhythmia: No. ST Change: No. INTERPRETATION Stress EKG Conclusion: Abnormal baseline EKG due to left ventricle hypertrophy and diffuse T wave inv ersions. No obvious ischemic EKG changes. Imaging Protocol IMAGE PROTOCOL: Rest Tc-99m/stress Tc-99m 1 day Rest: Stress: Viability: Radiopharm.Tc99m QzajnuohtCb96e Sestamibi Xnpk30oFp 32.2mCi Img Date 12/25/2021 12/25/2021 Inj-Img Igir31bhf. 60min. Rest Admin Site:IV - Left AntecubitalAdministrator:RT Kendy (R)(N) Stress Admin Site: IV - Left AntecubitalAdministrator: RT Kendy (R)(N) STRESS DATA End Diast. Vol.114.0mlAv. Heart Rate73.0bpm End Syst. Vol.32.0mlCO Index BSA0.0L/min Myocardial Vxcn470.0gEject. Sgoxgcat37.0% Stress Rates Pk. Fill Rate2.94EDV/secLVtime Pk. Fill 124.50msec Pk. Empty Rate3.82ESV/secLVtime Pk. Cyitk811.38msec 1/3 Pk. Fill1.68EDV/sec Stress Scores Regional WT2.00Summed WT19.00 Regional WM0.00Summed WM3.00 The rest and stress images show normal perfusion, normal contraction and thickening. LV Perf. Quant 17 Seg. SSS0.00 17 Seg. SRS2.00 17 Seg. SDS0.00 Stress Defect Extent (% LAD)0.00Rest Defect Extent (% LAD)0.00Rev. Defect Extent (% LAD)0.00 Stress Defect Extent (% LCX) 0.00Rest Defect Extent (% LCX)0.00Rev. Defect Extent (% LCX)0.00 Stress Defect Extent (% RCA)0.00Rest Defect Extent (% RCA)0.00Rev. Defect Extent (% RCA)0.00 Stress Defect Extent (% RACHEL)0.00Rest Defect Extent (% RACHEL)0.00Rev. Defect Extent (% RACHEL)0.00 Other Information Quality:Fair Risk Assessment: Low Risk Conclusion 1. Abnormal baseline EKG with sinus rhythm and left ventricular hypertrophy and diffuse T wave change s. 2. No evidence of EKG changes with stress testing. 3. Normal perfusion at stress/rest. 4. Low risk study. 5. EF > 60%. Signed by : Obie Ventura, Electronically Approved : 12/25/2021 15:32:46
== END ==
LOC: NM 09:47
PROVIDERS: ATTEND Internal Medicine Cardiovascular Disease
DX: R94.31 Abnormal electrocardiogram [ECG] [EKG] (principal); I25.10 Atherosclerotic heart disease of native coronary artery without angina pectoris
CPT/HCPCS: 78452; 93017; A9500; J2785

== ENCOUNTER 2022-03-05 06:59 | Outpatient (CLI) | payer MEDICARE ==
[~2022-03-05] VITALS: Ht 165.1 cm; Wt 59.0 kg
[2022-03-05] VITALS (11 sets, daily range): BP systolic 118–164; BP diastolic 53–64
[~2022-03-05 06:59] MED LIST changes: -REGADENOSON 0.4 MG/5 ML DISP.SYRIN. IV ONE
[2022-03-05] MEDS ORDERED: SERT-268 PO (07:27)
[2022-03-05] MEDS ORDERED: LIDOCAINE 1% PF 2 ML VIAL. ONE (07:42)
[2022-03-05 07:58] LABS: CALCIUM 8.5 mg/dL (8.5-10.1); CREATININE 3.5 mg/dL (0.6-1.0); GFR 12.7
[2022-03-05] MEDS ORDERED: IODIXANOL 320 200 ML in NS 200 ML IART ONE (08:00)
[2022-03-05 08:02] LABS: HEMATOCRIT 33.9 % (36.0-47.0); HEMOGLOBIN 10.9 g/dL (12.0-15.5); RED BLOOD COUNT 3.75 x10^6/uL (3.50-5.40); RED CELL DISTRIBUTION WIDTH 14.4 % (11.5-14.5); WHITE BLOOD COUNT 6.4 x10^3/uL (4.0-11.0)
[2022-03-05 08:04] LABS: PROTHROMBIN TIME PATIENT 12.1 SEC (11.7-14.0)
[2022-03-05] MEDS ORDERED: HEPARIN for IV BOLUS 10,000 UNIT/10 ML VIAL. ONE (08:17)
[2022-03-05] MEDS ORDERED: VERAPAMIL 5 MG/2 ML VIAL. ONE ×2 (08:17→08:30)
[2022-03-05] MEDS ORDERED: NITROGLYCERIN 200 MCG/2 ML SYRINGE FOR CATH/VASC LAB. ONE (08:18)
[2022-03-05] MEDS ORDERED: MIDAZOLAM HCL/PF 2 MG/2 ML VIAL. ONE (08:19)
[2022-03-05] MEDS ORDERED: fentaNYL PF VIAL 100 MCG/2 ML VIAL ONE (08:20)
[2022-03-05] MEDS ORDERED: MIDAZOLAM HCL/PF 2 MG/2 ML VIAL. IV ONE (08:30)
[2022-03-05] MEDS ORDERED: fentaNYL PF VIAL 100 MCG/2 ML VIAL IV ONE (08:30)
[2022-03-05] MEDS ORDERED: LIDOCAINE 1% Multi-Dose 20 ML VIAL. INJ ONE (08:30)
--- NOTE | 2022-03-05 09:41 | PDOC ---
MODERATE SEDATION ASSESSMENT RISKS/ALTERNATIVES Risks/Alternatives Risks and alternatives of this type of sedation and procedure discussed with: RISK/ALTERNATIVES: Patient H & P ON CHART H & P H & P on chart and reviewed for co-morbid conditions and appropriate labs. H&P ON CHART: Yes STATUS PREG STATUS ASSESSED: N/A MEDS/ALLERGIES REVIEWED Meds/Allergies Reviewed Medications and Allergies including time and route of recently administered narcotics and sedatives. MEDS/ALLERGIES REVIEWED: Yes ASA RATING ASA RATING: III AIRWAY ASSESSMENT Airway Assessment Airway patency, oral function limitations, presence of caps, crowns, dentures, partials, and ability to extend neck assessed. AIRWAY ASSESSMENT: Yes MALLAMPATI SCORE MALLAMPATI SCORE: II PRE-SEDATION ASSESSMENT PRE-SEDATION ASSESSMENT: Yes BIRD CHAMORRO MD Mar 05, 2022 09:41
--- NOTE | 2022-03-05 09:54 | CARD ---
MR#: [id number] Date of Study: 03/05/2022 Ordering Physician: BIRD LONGO, Referring Physician: BIRD LONGO, Tech: BORIS TRAN APPROVED REPORT Patient StatusOUT-PATIENT Director Of Corporate Sales: BORIS TRAN Procedure(s) performed: Aortogram with bilateral lower extremity runoff MODERATE SEDATION TIME: 40 MINUTES FLUORO TIME: 7.4 MIN DOSE: 43.4 GYCM2 CONTRAST: 76CC VISI INDICATION FOR PROCEDURE The indication(s) include : Peripheral artery disease with claudication. CASE TECHNIQUE After explaining the risks, benefits, and alternative options, informed consent was obtained from the patient. IV conscious sedation was used throughout procedure with appropriate monitoring and was per formed in the presence of a registered nurse who was an independent trained observer other than the shyla champion performing the procedure. During this case, Fluoroscopy and low osmolar contrast were used f or imaging. Specimen(s) Removed: No Estimated Blood loss: 15 cc's. PROCEDURE NARRATIVE After explaining the risk, benefits and alternative options, informed consent was obtained from patie nt. Patient was brought to the cardiac Department Chair and her right groin was prepped and draped in the us ual fashion. 20 cc of 2% lidocaine was infiltrated into the skin and subcutaneous tissues for local anesthesia. Arterial access was obtained in the right common femoral artery and a 5 Vietnamese sheath wa s inserted. A 5 Vietnamese Omni Flush catheter was then positioned in the descending aorta and aortoilia c angiography was performed. The aortic genny was crossed using 5 Vietnamese crossover catheter which w as then exchanged to the Omni Flush catheter. With the tip positioned in the left external iliac art michael, selective left lower extremity angiography was performed. Contrast injections were performed th rough the sheath in the right groin for selective right lower extremity angiography. Patient tolerat ed the procedure well. Hemostasis was achieved using Angio-Seal and manual compression. There were no immediate complications. FINDINGS 1. Infrarenal abdominal aortic aneurysm noted 2. 30% stenosis involving the right common iliac artery. No significant stenosis involving the left common iliac artery. 3. No significant stenosis involving bilateral external iliac arteries. 4. No significant stenosis involving bilateral common femoral arteries. 5. No significant stenosis involving bilateral deep femoral arteries. The right superficial femoral artery showed minimal luminal irregularities without any significant stenosis. The left superficial femoral artery showed luminal irregularities and 30% stenosis in the distal segment. 6. No significant stenosis involving bilateral popliteal arteries. 7. There is good vessel runoff below the knee bilaterally. three Conclusion No significant peripheral artery stenosis. Infrarenal abdominal aortic aneurysm. Vascular risk factor modification. Recommendations Recommend CTA to evaluate the size of AAA and consider vascular surgery referral. Signed by : Bird Longo, Electronically Approved : 03/05/2022 09:53:35
--- NOTE | 2022-03-05 12:15 | NUR ---
Patient able to get dressed, use bathroom, walk on unit with no bleeding at groin site. No sign of hematoma, no bleeding. Small marked area that patient has had during recovery period has not increased. RN provided instructions on site care, sedation. Stressed importance of monitoring for bleeding, no driving, not lifting/straining. Patient verbalized understanding. PIV removed, VS stable. All belongings, including cell phone, taken with patient at time of d/c. Patient's son driving home.
== END 2022-03-05 12:20 | disposition home or self-care (01) ==
LOC: CCL 06:59
PROVIDERS: ATTEND Internal Medicine Cardiovascular Disease
DX: I73.9 Peripheral vascular disease, unspecified (principal); I25.10 Atherosclerotic heart disease of native coronary artery without angina pectoris; I10 Essential (primary) hypertension; I48.91 Unspecified atrial fibrillation; E78.00 Pure hypercholesterolemia, unspecified; J44.9 Chronic obstructive pulmonary disease, unspecified; G47.30 Sleep apnea, unspecified; K21.9 Gastro-esophageal reflux disease without esophagitis; F32.9 Major depressive disorder, single episode, unspecified; M19.90 Unspecified osteoarthritis, unspecified site; Z90.710 Acquired absence of both cervix and uterus; Z98.890 Other specified postprocedural states; Z79.899 Other long term (current) drug therapy; Z88.5 Allergy status to narcotic agent; Z88.8 Allergy status to other drugs, medicaments and biological substances
CPT/HCPCS: 36246; 36415; 75625; 75716; 80048; 85027; 85610; 99152; 99153; C1760; C1769; C1894; G0269; J1644; J2250; J3010; J3490; J7050; Q9967; J7030

== ENCOUNTER → 2022-04-23 | Outpatient (CLI) | payer MEDICARE ==
[2022-03-05 12:15] VITALS: BP 118/64
[~2022-04-23] MED LIST changes: +IOHEXOL 350 MG/ML 100 ML VIAL. IV ONE; +SERT-268 PO
--- NOTE | 2022-04-23 15:10 | RAD ---
Exam: CT angiogram abdomen with intravenous contrast Indication: Abdominal aortic aneurysm Comparison: None Technique: Helical CT angiogram performed of the abdomen after the intravenous administration of 90 m L Omnipaque 350 contrast. Sagittal and coronal reformats were obtained. One or more of the following: Dose reduction techniques were utilized for this examination: 1. Automated exposure control 2. Adjustment of the mA and/or kV according to patient size 3. Use of iterative reconstruction technique. Findings: Vasculature: There is a fusiform infrarenal abdominal aortic aneurysm measuring 4.0 x 3.4 cm, extendi ng over about a 4 cm length inferior to the renal arteries. Moderate calcified and noncalcified ather osclerosis in the abdominal aorta. No aortic dissection. The inferior mesenteric artery arises from t he aneurysm but is patent. There is severe narrowing of the celiac artery. Moderate narrowing of the superior mesenteric artery origin. There is a stent in the single left renal artery that is not well opacified. There are 2 right renal arteries. No definite narrowing of the superior right renal artery . There is probable narrowing at the origin of the inferior right renal artery. The common iliac evrin ludmila are normal in caliber with scattered narrowing due to calcified atherosclerosis, greatest at the origin of the right common iliac artery. Lower chest: There is a small right pleural effusion. There is a partially visualized consolidation i n the medial right middle lobe with ground glass and tree-in-bud opacities in the rest of the visuali zed right middle lobe. There are tree-in-bud nodules throughout the visualized right lower lobe and a small consolidation in the lateral right lower lobe. There is airway wall thickening in the lung bas es. 3 mm nodule in the subpleural left lower lobe. There is a calcified granuloma in the left lower l obe. The heart is normal in size. Pacemaker leads are seen. Small fat-containing diaphragmatic hernia posteriorly on the right. Liver: The liver is mildly enlarged measuring 19 cm in length. There is a 6 mm arterially enhancing l esion in the right hepatic lobe (image 56, series 3). Gallbladder/Biliary Tree: Normal. Pancreas: Normal Spleen: There are calcified splenic granulomas. No splenomegaly. Adrenal Glands: Normal. Kidneys and ureters: There is moderate left and mild right renal atrophy. The kidneys enhance symmetr ically. There is a 2.1 cm exophytic simple right renal cyst and other smaller simple right renal cyst s. There are several left renal cysts measuring up to 1.4 cm. No hydronephrosis. The visualized urete rs are nondilated. Stomach and visualized bowel: The stomach is normal. There is no small bowel obstruction. The visuali zed portion of the colon is unremarkable. Lymph Nodes: No lymphadenopathy. Peritoneum and retroperitoneum: No free fluid or free air. Bones: Chronic deformity of the posterior right iliac wing, likely postsurgical. Possible surgical ch anges of right hemilaminectomy at L4-L5. 6 mm anterolisthesis of L5 on S1. Moderate degenerative disc disease at L5-S1. IMPRESSION: 1. Fusiform infrarenal abdominal aortic aneurysm measuring 4.0 x 3.4 cm. Moderate calcified aortoili ac atherosclerosis. 2. 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 3. A left renal artery stent is not well opacified and could be occluded. There are 2 right renal ar teries, one of which appears narrowed. 4. Moderate left and mild right renal atrophy. 5. 6 mm enhancing nodule in the liver, nonspecific but possibly a flash filling hemangioma. Consider ultrasound of the liver to further evaluate. 6. Small right pleural effusion. Consolidation in the medial right middle lobe, incompletely visuali zed. There are ground glass and tree-in-bud nodules elsewhere in the right lung base. Findings could be due to pneumonia or atypical infection, or aspiration. Correlate with clinical history and recomme nd follow-up imaging after treatment to ensure resolution and exclude underlying mass in the right mi ddle lobe. 7. Small diaphragmatic hernia posteriorly on the right. Electronically signed by: Fauzia Little MD (04/23/2022 3:08 PM) [facility]
== END ==
LOC: CT 10:49
PROVIDERS: ATTEND Internal Medicine Cardiovascular Disease
DX: I71.4 Abdominal aortic aneurysm, without rupture (principal); I70.0 Atherosclerosis of aorta; I70.8 Atherosclerosis of other arteries; J90 Pleural effusion, not elsewhere classified; R91.8 Other nonspecific abnormal finding of lung field; J84.10 Pulmonary fibrosis, unspecified; K44.9 Diaphragmatic hernia without obstruction or gangrene; R16.0 Hepatomegaly, not elsewhere classified; N26.1 Atrophy of kidney (terminal); N28.1 Cyst of kidney, acquired; I77.1 Stricture of artery; M51.37 Other intervertebral disc degeneration, lumbosacral region
CPT/HCPCS: 74175; Q9967